=== PATIENT | female | born 1975 | race Caucasian/White ===

== ENCOUNTER 2016-08-09 12:46 | Inpatient (IN) | payer OTHER ==
[~2016-08-09] VITALS: Ht 165.1 cm; Wt 112.1 kg
[~2016-08-09 12:46] MED LIST: BENT20TA PO; CELE40TA PO; DEPO150I IM; TRAZ50TA4 PO
[2016-08-09] MEDS ORDERED: ZYPR10TA PO (13:08)
[2016-08-09] MEDS ORDERED: HYDR12.55 PO (13:08)
[2016-08-09] MEDS ORDERED: LOSA50TA20 PO (13:08)
[2016-08-09] MEDS ORDERED: LISI-542 PO (13:08)
[2016-08-09] MEDS ORDERED: CLON1TAB PO (13:08)
[2016-08-09] MEDS ORDERED: BUPR150T3 PO (13:08)
[2016-08-09] MEDS ORDERED: OMEP40CA2 PO (13:08)
[2016-08-09] MEDS ORDERED: AMBI10TA PO (13:08)
[2016-08-09] MEDS ORDERED: METF1000 PO (13:08)
[2016-08-09] MEDS ORDERED: TIZA4CAP3 PO (13:08)
[2016-08-09] MEDS ORDERED: PIOG45TA2 PO (13:08)
[2016-08-09] MEDS ORDERED: HYDRO50TAB PO (13:08)
[2016-08-09] MEDS ORDERED: LOPE2TAB5 PO (13:08)
[2016-08-09] MEDS ORDERED: SIMV10TA2 PO (13:08)
[2016-08-09] MEDS ORDERED: GLIP5TAB8 PO (13:08)
[2016-08-09] MEDS ORDERED: ZOFR20TA PO (13:08)
[2016-08-09 14:38] LABS: CALCIUM LEVEL 8.2 MG/DL (8.5-10.1); CREATININE FOR GFR 1.37 MG/DL (0.55-1.02); GLOMERULAR FILTRATION RATE 45.9 (>60); MAGNESIUM LEVEL 1.6 MG/DL (1.8-2.4); POTASSIUM SERUM 4.9 MEQ/L (3.5-5.1)
[2016-08-09] MEDS ORDERED: MAGNESIUM OXIDE 400 MG TAB (MAG-OX) PO ONE (15:00)
[2016-08-09] MEDS: glipiZIDE (GLUCOTROL) 5 MG TAB PO SCH (17:30)
[2016-08-09] MEDS ORDERED: BUPR300T34 PO (17:40)
[2016-08-09] MEDS ORDERED: PRAZ2CAP PO (17:40)
[2016-08-09] MEDS ORDERED: ALBU17IN INH (17:40)
[2016-08-09] MEDS ORDERED: GABA800T PO (17:40)
[2016-08-09] MEDS ORDERED: HYDR25TAB PO (17:43)
[2016-08-09 20:10] VITALS: BP 164/96
[2016-08-09] MEDS ORDERED: ALBUTEROL 90 MCG/ACT 8GM HFA INHALER INH PRN (23:00)
[2016-08-09] MEDS ORDERED: ONDANSETRON 4 MG TAB (S0181) PO PRN (23:00)
[2016-08-09] MEDS ORDERED: zolPIDEM TARTRATE 10MG TAB PO PRN (23:00)
[2016-08-09] MEDS ORDERED: LOPERAMIDE 2 MG CAP PO PRN (23:00)
[2016-08-09] MEDS ORDERED: MAALOX 30 ML SUSP *UDC PO PRN (23:00)
[2016-08-09] MEDS ORDERED: MOM 30ML SUSPENSION UDC PO PRN (23:00)
[2016-08-09] MEDS: GABAPENTIN 400 MG CAP PO SCH (23:34)
[2016-08-09] MEDS: OLANZapine 10 MG TAB PO SCH (23:34)
[2016-08-09] MEDS: SIMVASTATIN 10 MG TAB PO SCH (23:34)
[2016-08-09] MEDS: clonazePAM 1 MG TAB PO SCH (23:35)
[2016-08-09] MEDS: tiZANidine 4 MG TAB PO SCH (23:35)
[2016-08-09] MEDS: metFORMIN (GLUCOPHAGE) 1000 MG TABLET PO SCH (23:36)
[2016-08-09] MEDS: PRAZOSIN 1 MG CAP PO SCH (23:37)
[2016-08-10] MEDS: glipiZIDE (GLUCOTROL) 5 MG TAB PO SCH ×2 (06:35→17:04)
[2016-08-10 06:49] VITALS: BP 168/87
--- NOTE | 2016-08-10 08:55 | MHHPEPDOC ---
[facility] History & Physical History and Physical DATE OF ADMISSION: Aug 09, 2016 at 17:23 CHIEF COMPLAINT: "I don't have an answer for why I took too many Klonopin, sometimes I get sad, but really I think it's a tolerance problem." HISTORY OF THE PRESENT ILLNESS: Patient is a 40-year-old female, who was transferred from [facility]. Per [facility] notes patient was engaged in a fight with her boyfriend and may have overdosed on Klonopin as a suicide attempt. Patient was apparently transported to [facility] by boyfriend. Patient informed [facility] staff that she had taken 15 Klonopin tablets just prior to being evaluated in ER, per ER notes patient presented with drowsiness and obtundation (lethargic), symptoms are described as moderate. Patient informed ER staff that she had been depressed and upset, ER note also indicates possibly paranoid, had been experiencing anger with suicidal thoughts. Patient denied experiencing confusion, hallucinations or delusions to ER staff. Per [facility] ER report, patient has been seen in their emergency department 20 times in the past 2 years, usually for pain- related complaints. When patient arrived at [facility] she informed emergency room staff that she had had an argument with her boyfriend, took 15 Klonopin tablets, denied this was a suicide attempt and stated that she took the Klonopin in 5 pill increments over the course of the day. Patient denies history of prior psychiatric inpatient treatment, denies history of suicide attempt or self-injurious behavior. Patient reports experiencing an increase in the following symptoms within the past 2 weeks: Depression, anxiety, helplessness and hopelessness, impulse control challenges, relationship strain, hypersomnia, denies suicidal ideation, and denies suicidal gesture. Patient reports experiencing 5/10 anxiety, denies depression, denies suicidal and homicidal ideation, denies auditory and visual hallucinations, and denies urge to engage in self-injurious behavior. Patient endorses history of discomfort in social settings, panic attacks, is vague in terms of panic symptoms and last occurrence, endorses impulse control challenges, denies compulsive behavior, denies history of aggression or unsanctioned violence, and denies having access to weapons in the home. Patient denies experiencing dissociative symptoms, reports history of mood lability which is made level by [place], states she has a history of being diagnosed with bipolar disorder, is unable to provide description of symptoms. Patient denies appetite challenges, indicates she struggles with sleep maintenance, denies latency challenges, reports history of "nightmares with flashbacks," indicates she experiences nightmares approximately 3 times per month. Patient endorses symptoms of reexperiencing, avoidance, and hypervigilance which she attributes to witnessing her brother's suicide in 2015 and the loss of her mother and father in 2015. Patient states she has been receiving outpatient medication management through [facility] for the past year, is currently being prescribed Klonopin and Ambien, among other psychotropic medications, states medication regimen is effective, denies need for medication/dosing changes, and denies medication side effects. Patient states she does not participate in psychotherapy and is declining to sign release of information to permit communication between [facility] and outpatient medication prescriber. I stop review completed 08/10/16 PSYCHIATRIC REVIEW OF SYSTEMS: Affective: Dysthymic Anxiety: Endorses. Trauma: Endorses history of trauma. Psychosis: Denies. Personally: Engageable but evasive, provides conflicting information, reliability as operations specialists is questioned. 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 Patient states she has never participated in psychotherapy Suicidal/Self injurious: Denies Psychotropic Medication History: Patient unable to provide detailed information , states she may have taken Seroquel, Risperdal, lithium and Xanax at one point , is refusing to sign release permitting communication with current outpatient provider. ALLERGIES: Please see below. FAMILY PSYCHIATRIC HISTORY: Mother- bipolar Brother - bipolar SOCIAL HISTORY: Early Relations/development: Patient states she was born and raised in [place] by parents in intact relationship, indicates she moved to [place] from [place] 3 years ago. Patient states both parents are Sibling order: Patient is second oldest child, has 2 older brothers one of whom is , and one sister Paternal relationships: States boyfriend is supportive, indicates she is not close to her siblings, states she is close to her son who lives with her Education: Dropped out of high school in the 11th grade Occupational: Patient is unemployed, cannot remember the last time she worked, is not collecting disability, is unable to tell typewriter assembly and parts inspector about her work experience Legal: Initially denies, then indicates she was on probation 1 year for resisting arrest for reason she cannot remember Martial: Declines to discuss history of marriage, indicates she has a boyfriend of 3 years with whom she lives along with her 18-year-old son Economic: Unemployed, does not collect disability Supports: Limited Abuse/trauma: Denies history of abuse, trauma, or witnessing domestic violence in the home while growing up, indicates she was traumatized by family deaths and by witnessing brother's suicide SUBSTANCE ABUSE HISTORY: Patient informs typewriter assembly and parts inspector she has not consumed alcohol for the past 3 years, notes prior to that she drank "a few drinks on the weekends," indicates she smoked marijuana "years ago," indicates she would like to pursue a medical marijuana card. Patient states she has engaged in no other substance use or abuse. Per [facility] ER report patient smokes approximately half a pack of cigarettes per day. PAST MEDICAL/SURGICAL HISTORY: Per [facility] report, patient has history of hypertension, diabetes mellitus, obesity, COPD, chronic back pain, CHF, insomnia , hyperlipidemia Patient has surgical history of appendectomy, , colonoscopy, fracture repair to left ankle/leg Refer to [facility] report for baseline lab results 08/09/16 repeat labs on admission indicated elevated chloride, BUN, creatinine, glucose and low carbon dioxide, calcium, magnesium, GFR. [facility] 08/09/16 UDS negative, possible false negative for Klonopin [facility] 08/08/16 HCG negative [facility] 08/08/16 EKG normal sinus rhythm, cannot rule out anterior infarct, age undetermined abnormal ECG [facility] 08/08/2016 EKG normal sinus rhythm low voltage QRS cannot rule out anterior infarct, age undetermined abnormal ECG Nursing has been asked to ensure the patient is assessed by PA. VITAL SIGNS: 08/10/16 at 06:49 B/P 168/87, P 116, R 18, T 97.6. BP on recheck was 130/91. Nursing has been asked to ensure that PA evaluates blood pressure for treatment and monitoring purposes. MENTAL STATUS EXAMINATION: General appearance: Patient is a 40-year old female, who is cooperative but evasive, provides conflicting information, appears disheveled, dressed in hospital clothing, makes fair eye contact, and relates was steady gait, appears stated age. Speech: Slow, mildly slurred, delayed responses, generally coherent Thought processes: Delayed, generally linear and logical, goal-directed Thought content: Generally logical, no tangentiality noted, possibly paranoia, is refusing to allow typewriter assembly and parts inspector to talk with outpatient provider Abstract reasoning and computation: Requires further evaluation Description of associations: Appear generally intact Description of abnormal or psychotic thoughts: Denies suicidal or homicidal ideation, denies auditory or visual hallucinations, does not appear to be responding to internal stimuli, does not endorse bizarre or paranoid ideation, denies preoccupation with violence Judgment: Poor Insight: Poor Orientation: A and O 3 Recent and remote memory: Requires further assessment, patient is evasive, provides conflicting information which may be related to memory challenges Attention span and concentration: Limited Fund of knowledge: Requires further evaluation Mood: "Normal I guess, but with anxiety." Exhibits mild irritability during conversation pertaining to controlled medication tapers Affect: Blunted DIAGNOSES: Unspecified mood disorder, rule out substance-induced mood disorder, rule out polysubstance use disorder, rule out bipolar disorder, rule out MDD, rule out PTSD, rule out bereavement, rule out personality disorder ASSESSMENT: Patient is visible on unit, is cooperative with staff, and has presented with no behavior management challenges. Patient provides vague report pertaining to events which led to current hospitalization, indicates recent consumption of 15 Klonopin tablets was not a suicide attempt, nor was she attempting to abuse Klonopin. Patient verbalizes understanding that Ambien and Klonopin tapers will be initiated during inpatient treatment and declines to sign an ELIZABETH permitting communication with her outpatient prescriber. Patient states she receives medication management through [facility], notes current medication regimen is effective and does not want changes made to medications, states she is compliant with her medications, declines need for dosing adjustment, and denies medication side effects. Patient denies current suicidal or homicidal ideation and verbalizes awareness of how to access supportive services on the unit if needed. Will begin controlled medication tapers and will monitor patient's response to medications and for medication side effects. In the event current medication regimen is not effective, will courage patient to consider transitioning to medication which may more efficiently address presenting symptoms than the multiple medications she is currently being prescribed. Will evaluate patient's safety, resolution of suicidal ideation, and discharge readiness. Patient provides vague response when asked about current status of relationship with boyfriend, however, indicates when prepared for discharge she will return home where she lives with her boyfriend and her son. Patient states when prepared for discharge she would like to resume outpatient medication management through [facility], states she has never participated in outpatient psychotherapy, indicates she is agreeable to participating in therapy when discharged. public information coordinator will begin pursuing collateral information, and communication with outpatient provider will be initiated once patient has signed ELIZABETH. PROBLEM LIST: Suicide attempt/ideation Depression Anxiety Substance abuse Ineffective coping Poor impulse control Relationship strain Limited support INITIAL TREATMENT PLAN: 1. Patient was admitted on a 2. Complete history was obtained. 3. With patients permission, family will be contacted and database will be expanded. 4. Patients medication regimen will be reviewed and changed accordingly. 5. Patient will be provided with protected environment. 6. Patient will be treated with individual, group, and milieu therapies. 7. Patient will receive supportive psych-education. 8. Discharge planning will commence immediately. 9. Outpatient follow-up treatment will be strongly recommended. 10. The initial treatment plan will focus initially on: * Depression. * Risk for suicide. * Substance abuse. ESTIMATED LENGTH OF STAY: 5-7 DAYS. TIME SPENT COUNSELING AND COORDINATING INITIAL CARE: 50 minutes. Laboratory Data 24H Labs Laboratory Tests 2 08/09/16 13:59: Anion Gap 10, Glomerular Filtration Rate 45.9L, Blood Urea Nitrogen 27H, Creatinine 1.37H, Sodium Level 143, Potassium Level 4.9, Chloride Level 114H, Carbon Dioxide Level 19L, Calcium Level 8.2L, Magnesium Level 1.6L 08/09/16 23:33: Bedside Glucose (Misc Panel) 145H CBC/BMP Laboratory Tests 08/09/16 13:59 Calcium Level 8.2 L FSBS Laboratory Tests Test 08/09/16 23:33 Range/Units Bedside Glucose (Misc Panel) 145 70-105 MG/DL Medications Scheduled Bupropion HCl (Bupropion HCl Xl) 300 Mg Tab, 300 MG PO DAILY, (Reported) Citalopram Hydrobromide (Celexa) 40 Mg Tab, 40 MG PO DAILY, (Reported) Clonazepam (Clonazepam) 1 Mg Tab, 1 MG PO BID, (Reported) Gabapentin (Gabapentin) 800 Mg Tab, 800 MG PO TID, (Reported) Glipizide (Glipizide) 5 Mg Tab, 5 MG PO BID, (Reported) Hydrochlorothiazide (Hydrochlorothiazide) 25 Mg Tab, 25 MG PO DAILY, (Reported) Lisinopril (Lisinopril) 5 Mg Tab, 5 MG PO DAILY, (Reported) Losartan Potassium (Losartan Potassium) 50 Mg Tab, 50 MG PO DAILY, (Reported) Medroxyprogesterone Acetate (Depo-Provera Contraceptiv) 150 Mg/Ml Inj, 150 MG IM [id number], (Reported) Metformin Hydrochloride (Metformin HCl) 1,000 Mg Tab, 1,000 MG PO BID, (Reported ) Olanzapine (Zyprexa) 10 Mg Tab, 10 MG PO QHS, (Reported) Omeprazole (Omeprazole) 40 Mg Cap, 40 MG PO DAILY, (Reported) Pioglitazone Hydrochloride (Pioglitazone HCl) 45 Mg Tab, 45 MG PO QHS, (Reported ) Prazosin Hcl (Prazosin HCl) 2 Mg Cap, 2 MG PO QHS, (Reported) Simvastatin (Simvastatin) 10 Mg Tab, 10 MG PO QHS, (Reported) Tizanidine Hydrochloride (Tizanidine HCl) 4 Mg Cap, 4 MG PO TID, (Reported) Zolpidem Tartrate (Ambien) 10 Mg Tab, 10 MG PO QHS, (Reported) Scheduled PRN Albuterol Sulfate (Ventolin Hfa) 200 Puff/8 Gm Aers, 2 PUFF INH QID PRN for SHORTNESS OF BREATH, (Reported) Hydroxyzine HCl (Hydroxyzine HCl) 50 Mg Tab, 50 MG PO QID PRN for ANXIETY, ( Reported) Loperamide HCl (Loperamide HCl) 2 Mg Tab, 2 MG PO PRN PRN for DIARRHEA, ( Reported) Ondansetron HCl (Zofran) 4 Mg Tab, 4 MG PO PRN PRN for NAUSEA, (Reported) Allergies Coded Allergies: Cephalexin (Verified Allergy, Unknown, 03/02/15) Abigail Heath 23, 2017 08:55
[2016-08-10] MEDS: buPROPion **XL** TABLET 150MG (WELLBUTRIN XL) PO SCH (09:49)
[2016-08-10] MEDS: clonazePAM 1 MG TAB PO SCH ×2 (09:49→20:19)
[2016-08-10] MEDS: CitaloPRAM (CeleXA) 20 MG TAB PO SCH (09:51)
[2016-08-10] MEDS: LOSARTAN 50 MG TAB PO SCH (09:51)
[2016-08-10] MEDS: hydroCHLOROthiazide 25 MG TAB PO SCH (09:51)
[2016-08-10] MEDS: tiZANidine 4 MG TAB PO SCH ×3 (09:51→20:19)
[2016-08-10] MEDS: OMEPRAZOLE 20 MG CAP PO SCH (09:51)
[2016-08-10] MEDS: LISINOPRIL 5 MG TAB PO SCH (09:52)
[2016-08-10] MEDS: GABAPENTIN 400 MG CAP PO SCH ×3 (09:52→20:16)
[2016-08-10] MEDS: metFORMIN (GLUCOPHAGE) 1000 MG TABLET PO SCH ×2 (09:52→17:04)
[2016-08-10 10:02] VITALS: BP 130/91
[2016-08-10] MEDS ORDERED: zolPIDEM TARTRATE 5 MG TAB PO PRN (16:45)
[2016-08-10 18:00] VITALS: BP 156/86
[2016-08-10] MEDS: SIMVASTATIN 10 MG TAB PO SCH (20:16)
[2016-08-10] MEDS: OLANZapine 10 MG TAB PO SCH (20:16)
[2016-08-10] MEDS: PRAZOSIN 1 MG CAP PO SCH (20:17)
[2016-08-11 06:00] VITALS: BP 116/57
[2016-08-11] MEDS: glipiZIDE (GLUCOTROL) 5 MG TAB PO SCH ×2 (06:49→17:19)
[2016-08-11] MEDS: GABAPENTIN 400 MG CAP PO SCH ×3 (08:36→20:14)
[2016-08-11] MEDS: buPROPion **XL** TABLET 150MG (WELLBUTRIN XL) PO SCH (08:36)
[2016-08-11] MEDS: LOSARTAN 50 MG TAB PO SCH (08:37)
[2016-08-11] MEDS: clonazePAM 0.5 MG TAB PO SCH (08:37)
[2016-08-11] MEDS: metFORMIN (GLUCOPHAGE) 1000 MG TABLET PO SCH ×2 (08:37→17:19)
[2016-08-11] MEDS: tiZANidine 4 MG TAB PO SCH ×3 (08:37→20:17)
[2016-08-11] MEDS: LISINOPRIL 5 MG TAB PO SCH (08:37)
[2016-08-11] MEDS: OMEPRAZOLE 20 MG CAP PO SCH (08:37)
[2016-08-11] MEDS: hydroCHLOROthiazide 25 MG TAB PO SCH (08:37)
[2016-08-11] MEDS: CitaloPRAM (CeleXA) 20 MG TAB PO SCH (08:38)
[2016-08-11 18:00] VITALS: BP 133/94
[2016-08-11] MEDS: SIMVASTATIN 10 MG TAB PO SCH (20:17)
[2016-08-11] MEDS: PRAZOSIN 1 MG CAP PO SCH (20:17)
[2016-08-11] MEDS: clonazePAM 1 MG TAB PO SCH (20:17)
[2016-08-11] MEDS: OLANZapine 10 MG TAB PO SCH (20:17)
[2016-08-11] MEDS: ACETAMINOPHEN TAB 650MG DOSE (2X325MG) PO PRN (20:18)
[2016-08-12 06:00] VITALS: BP 97/60
[2016-08-12] MEDS: glipiZIDE (GLUCOTROL) 5 MG TAB PO SCH ×2 (06:53→16:52)
[2016-08-12] MEDS: OMEPRAZOLE 20 MG CAP PO SCH (08:32)
[2016-08-12] MEDS: GABAPENTIN 400 MG CAP PO SCH ×3 (08:32→20:18)
[2016-08-12] MEDS: CitaloPRAM (CeleXA) 20 MG TAB PO SCH (08:33)
[2016-08-12] MEDS: metFORMIN (GLUCOPHAGE) 1000 MG TABLET PO SCH ×2 (08:34→16:52)
[2016-08-12] MEDS: LISINOPRIL 5 MG TAB PO SCH (08:34)
[2016-08-12] MEDS: LOSARTAN 50 MG TAB PO SCH (08:34)
[2016-08-12] MEDS: tiZANidine 4 MG TAB PO SCH ×3 (08:34→20:18)
[2016-08-12] MEDS: clonazePAM 0.5 MG TAB PO SCH (08:35)
[2016-08-12] MEDS: hydroCHLOROthiazide 25 MG TAB PO SCH (08:35)
[2016-08-12] MEDS: buPROPion **XL** TABLET 150MG (WELLBUTRIN XL) PO SCH (08:35)
[2016-08-12 08:49] LABS: ALBUMIN 3.6 GM/DL (3.2-5.2); ALKALINE PHOSPHATASE 111 U/L (45-117); ALT/SGPT 66 U/L (12-78); ANION GAP 8 MEQ/L (8-16); AST/SGOT 24 U/L (15-37); BILIRUBIN,TOTAL 0.4 MG/DL (0.2-1.0); BLOOD UREA NITROGEN 21 MG/DL (7-18); CALCIUM LEVEL 8.8 MG/DL (8.5-10.1); CARBON DIOXIDE LEVEL 26 MEQ/L (21-32); CHLORIDE LEVEL 102 MEQ/L (98-107); CREATININE FOR GFR 1.01 MG/DL (0.55-1.02); GLOMERULAR FILTRATION RATE > 60.0 (>60); GLUCOSE, FASTING 220 MG/DL (70-105); MAGNESIUM LEVEL 1.8 MG/DL (1.8-2.4); POTASSIUM SERUM 4.4 MEQ/L (3.5-5.1); SODIUM LEVEL 136 MEQ/L (136-145); TOTAL PROTEIN 7.6 GM/DL (6.4-8.2)
--- NOTE | 2016-08-12 10:59 | IPN ---
DATE: 08/11/2016 I evaluated this 40-year-old female with history of intentional overdose with Klonopin who was admitted to the inpatient mental health unit on 08/09/2016. According to history, the patient is a 40-year-old female who was transferred from [facility] after [facility] notes patient was engaged in a fight with her boyfriend and may have overdosed on Klonopin. However, the patient denies that she took Klonopin with the intention of killing herself. As per notes, it was her boyfriend who is the one who reported to [facility] that patient had overdosed on Klonopin. She states that she took more or less 7 tablets of 1 mg and she says that she did not do it with the intention of overdose, but because she was very stressed out and she could not relax and for that reason she kept taking Klonopin. She reports multiple losses including her baby brother whom she says had cardiac problems and that she saw him dying in front of her eyes, she remembers quite vividly that he had blood coming out of his mouth and she tried to help him not to choke on it, but she could not do much for him. She reports that she feels very guilty about not being able to help him more and she blames herself for his , she also reports that her mother killed herself four days before last Nando and that her father as a consequence of a massive seizure. She reports that she has taken Wellbutrin and Celexa for a long period of time and that she has felt that she was stable on those medications. Currently, she denies suicidal ideation and denies auditory and visual hallucinations, but she is trying to minimize her symptoms because she is looking forward for being discharged. Currently, the patient is taking Wellbutrin 300 mg by mouth daily, Celexa 40 mg by mouth daily, Klonopin 1 mg by mouth at bedtime and 0.5 mg by mouth every morning, gabapentin 800 mg by mouth three times a day, olanzapine 10 mg by mouth at bedtime, prazosin 2 mg by mouth at bedtime and zolpidem 5 mg by mouth at bedtime as needed for insomnia. The patient has medication seeking behavior. She complained of pain and she reported that gabapentin was not being effective in controlling her neuropathic pain and required a stronger medication, but this typewriter mechanic explained to her that no further changes could be made and no increase in medications could be performed due to the fact that she was already on way too many medications and could not prescribe her Lyrica because it is very similar to gabapentin and did not consider it necessary. The patient will be followed up and reassessed tomorrow, 08/12/2016.
[2016-08-12] MEDS: ACETAMINOPHEN TAB 650MG DOSE (2X325MG) PO PRN (13:30)
[2016-08-12 18:00] VITALS: BP 141/75
--- NOTE | 2016-08-12 18:38 | MHIPNPDOC ---
[facility] Progress Note Progress Note DATE OF SERVICE: 08/12/16 INTERVAL HISTORY: Medication Side effects: reports no side effects from her psychiatric medications at this time Behavior/events: has been generally friendly with no acute outbursts Group Attendance: has attended groups Psychiatric Symptoms: reports that she is feeling better other than her chronic back pain, she was advised acupuncture would be ideal for her pain. She describes that she's feeling much less depressed and anxious being in an inpatient setting VITAL SIGNS: See below. NEW TEST RESULTS: See below CURRENT MEDICATIONS: See below. MENTAL STATUS EXAMINATION: General: Well dressed with good hygiene Speech: Spontaneous and fluid Thought processes: Linear and logical Thought content: future oriented, laughing about her children Abstract reasoning, and computation: Intact Description of associations: Intact Description of abnormal or psychotic thoughts:Denies any suicidal or homicidal ideation. Denies any auditory or visual hallucinations. Does not appear to be responding to internal stimuli. Does not appear to be endorsing any bizarre or paranoid ideation. Judgment: fair Insight: limited Orientation: Alert and orientated 3 Recent and remote memory: Intact Attention span and concentration: Intact Fund of knowledge: Adequate Mood: "okay" Affect: Euthymic with a full range DIAGNOSES: 1. Unspecified depressive disorder. 2. Mixed personality trait. 3. Poly substance use disorder, severe. ASSESSMENT: improving MANAGEMENT PLAN: Medications: continue psychiatric medications as below with no changes, discourage providers from using Lyrica due to the addictive nature Psychotherapy: encourage group therapy Social: no plans to discharge at this time Misc: encouraged use of Tylenol for back pain Disposition: The patient will need of further inpatient stay to address severe depression. TIME SPENT: 15 minutes. Vital Signs Vital Signs Date Time Temp Pulse Resp B/P (MAP) Pulse Ox O2 Delivery O2 Flow Rate FiO2 08/12/16 18:00 98.2 78 16 141/75 (97) 08/10/16 17:05 Room Air 08/09/16 20:10 98 Laboratory Data 24H Labs Laboratory Tests 2 08/12/16 06:07: Bedside Glucose (Misc Panel) 220H 08/12/16 08:02: Anion Gap 8, Glomerular Filtration Rate > 60.0, Blood Urea Nitrogen 21H, Creatinine 1.01, Sodium Level 136, Potassium Level 4.4, Chloride Level 102, Carbon Dioxide Level 26, Calcium Level 8.8, Aspartate Amino Transf (AST/SGOT) 24 , Alanine Aminotransferase (ALT/SGPT) 66, Alkaline Phosphatase 111, Total Bilirubin 0.4, Total Protein 7.6, Albumin 3.6, Magnesium Level 1.8, Albumin/ Globulin Ratio 0.90L 08/12/16 16:51: Bedside Glucose ([facility]) 172H CBC/BMP Laboratory Tests 08/12/16 08:02 Calcium Level 8.8, Aspartate Amino Transf (AST/SGOT) 24, Alanine Aminotransferase (ALT/SGPT) 66, Alkaline Phosphatase 111, Total Bilirubin 0.4, Total Protein 7.6, Albumin 3.6 Current Medications Current Medications Acetaminophen (Tylenol Tab) 650 mg Q6HP PRN PO HEADACHE or DISCOMFORT Last administered on 08/12/16 13:30; Start 08/09/16 at 23:00; Stop 09/08/16 at 22:59 Al Hydrox/Mg Hydrox/Simethicone (Mylanta) 30 ml Q4HP PRN PO HEARTBURN/ INDIGESTION; Start 08/09/16 at 23:00; Stop 09/08/16 at 22:59 Albuterol Sulfate (Proventil, Ventolin Hfa) 2 puff QIDP PRN INH SOB/WHEEZING; Start 08/09/16 at 23:00; Stop 09/08/16 at 22:59 Bupropion HCl (Wellbutrin Xl) 300 mg DAILY PO Last administered on 08/12/16 08 :35; Start 08/10/16 at 09:00; Stop 09/09/16 at 08:59 Citalopram Hydrobromide (CeleXA) 40 mg DAILY PO Last administered on 08/12/16 08:33; Start 08/10/16 at 09:00; Stop 09/09/16 at 08:59 Clonazepam (KlonoPIN) 0.5 mg QAM PO Last administered on 08/12/16 08:35; Start 08/11/16 at 09:00; Stop 08/18/16 at 08:59 Clonazepam (KlonoPIN) 1 mg BID PO Last administered on 08/10/16 09:49; Start 08/09/16 at 21:00; Stop 08/10/16 at 16:37; Status DC Clonazepam (KlonoPIN) 1 mg QHS PO Last administered on 08/11/16 20:17; Start 08/10/16 at 21:00; Stop 08/16/16 at 20:59 Gabapentin (Neurontin) 800 mg TID PO Last administered on 08/12/16 15:15; Start 08/09/16 at 21:00; Stop 09/08/16 at 20:59 Glipizide (Glucotrol) 5 mg BID@0730,1730 PO Last administered on 08/12/16 16: 52; Start 08/09/16 at 17:30; Stop 09/08/16 at 17:29 Home Med (Med Rec Complete!) ASDIRECTED XX ; Start 08/09/16 at 17:45; Stop at 17:45; Status DC Hydrochlorothiazide (Hydrodiuril) 25 mg DAILY PO Last administered on 08:35; Start 08/10/16 at 09:00; Stop 09/09/16 at 08:59 Hydroxyzine HCl (Atarax) 50 mg Q6HP PRN PO ANXIETY; Start 08/09/16 at 23:00; Stop 09/08/16 at 22:59 Lisinopril (Prinivil) 5 mg DAILY PO Last administered on 08/12/16 08:34; Start 08/10/16 at 09:00; Stop 09/09/16 at 08:59 Loperamide HCl (Imodium) 2 mg ASDIRECTED PRN PO DIARRHEA; Start 08/09/16 at 23: 00; Stop 09/08/16 at 22:59 Losartan Potassium (Cozaar) 50 mg DAILY PO Last administered on 08/12/16 08:34 ; Start 08/10/16 at 09:00; Stop 09/09/16 at 08:59 Magnesium Hydroxide (Milk Of Magnesia) 30 ml DAILYPRN PRN PO CONSTIPATION; Start 08/09/16 at 23:00; Stop 09/08/16 at 22:59 Metformin HCl (Glucophage) 1,000 mg BID@08,18 PO Last administered on 16:52; Start 08/09/16 at 18:00; Stop 09/08/16 at 17:59 Miscellaneous (Unresolved Patient Own Med Order) SEE LABEL COMMENTS UNRESOLVED XX ; Start 08/10/16 at 00:01; Stop 09/09/16 at 00:00 Olanzapine (ZyPREXA) 10 mg QHS PO Last administered on 08/11/16 20:17; Start 08/09/16 at 21:00; Stop 09/08/16 at 20:59 Omeprazole (PriLOSEC) 40 mg DAILY PO Last administered on 08/12/16 08:32; Start 08/10/16 at 09:00; Stop 09/09/16 at 08:59 Ondansetron HCl (Zofran) 4 mg Q4HP PRN PO NAUSEA OR VOMITING; Start 08/09/16 at 23:00; Stop 09/08/16 at 22:59 Patient Own Medication (Patient'S Own Med) 45mg QHS PO Last administered on 20:17; Start 08/10/16 at 21:00; Stop 09/09/16 at 20:59 Prazosin HCl (Minipress) 2 mg QHS PO Last administered on 08/11/16 20:17; Start 08/09/16 at 21:00; Stop 09/08/16 at 20:59 Simvastatin (Zocor) 10 mg QHS PO Last administered on 08/11/16 20:17; Start at 21:00; Stop 09/08/16 at 20:59 Tizanidine HCl (Zanaflex) 4 mg TID PO Last administered on 08/12/16 15:15; Start 08/09/16 at 21:00; Stop 09/08/16 at 20:59 Zolpidem Tartrate (Ambien) 5 mg QHSP PRN PO INSOMNIA; Start 08/10/16 at 16:45; Stop 08/17/16 at 16:44 Zolpidem Tartrate (Ambien) 10 mg QHSP PRN PO INSOMNIA Last administered on 08/09 23:35; Start 08/09/16 at 23:00; Stop 08/10/16 at 16:37; Status DC Allergies Coded Allergies: Cephalexin (Verified Allergy, Unknown, 03/02/15) GME ATTESTATION My preceptor for this patient encounter was physically present in the building during the encounter and was fully available. As needed, all aspects of the patient interview, examination, medical decision making process, and medical care plan development were reviewed and approved by the preceptor. Preceptor is aware and concurs with the plan as stated in the body of this note and will attest to such by his/her cosignature. JIMBO DESAI DO Aug 12, 2016 18:38
[2016-08-12] MEDS: SIMVASTATIN 10 MG TAB PO SCH (20:18)
[2016-08-12] MEDS: OLANZapine 10 MG TAB PO SCH (20:18)
[2016-08-12] MEDS: clonazePAM 1 MG TAB PO SCH (20:18)
[2016-08-12] MEDS: PRAZOSIN 1 MG CAP PO SCH (20:20)
--- NOTE | 2016-08-13 00:46 | ECGEPIP ---
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
[2016-08-13 06:20] VITALS: BP 104/55
[2016-08-13] MEDS: glipiZIDE (GLUCOTROL) 5 MG TAB PO SCH ×2 (06:32→17:06)
[2016-08-13] MEDS: CitaloPRAM (CeleXA) 20 MG TAB PO SCH (08:37)
[2016-08-13] MEDS: OMEPRAZOLE 20 MG CAP PO SCH (08:37)
[2016-08-13] MEDS: tiZANidine 4 MG TAB PO SCH ×3 (08:37→20:27)
[2016-08-13] MEDS: clonazePAM 0.5 MG TAB PO SCH ×2 (08:37→20:30)
[2016-08-13] MEDS: buPROPion **XL** TABLET 150MG (WELLBUTRIN XL) PO SCH (08:37)
[2016-08-13] MEDS: LISINOPRIL 5 MG TAB PO SCH (08:37)
[2016-08-13] MEDS: LOSARTAN 50 MG TAB PO SCH (08:37)
[2016-08-13] MEDS: metFORMIN (GLUCOPHAGE) 1000 MG TABLET PO SCH ×2 (08:37→17:06)
[2016-08-13] MEDS: GABAPENTIN 400 MG CAP PO SCH ×3 (08:37→20:30)
[2016-08-13] MEDS: hydroCHLOROthiazide 25 MG TAB PO SCH (08:38)
--- NOTE | 2016-08-13 09:22 | MHIPNPDOC ---
[facility] Progress Note Progress Note DATE OF SERVICE: 08/13/16 HISTORY OF THE PRESENT ILLNESS: Patient is a 40-year-old female, who was transferred from [facility] after overdosing on Klonopin after argument with boyfriend. At time of admission patient admitted to taking 15 Klonopin tablets, denied this was a suicide attempt and stated she took the Klonopin in 5 pill increments over the course of the day. Patient denies history of prior psychiatric inpatient treatment, further denies history of suicide attempt or self-injurious behavior, however, indicates she has lengthy outpatient psychiatric history dating back to childhood, is unable to provide clear details on treatment or medication history. Cdl Driver met with patient today to assess treatment progress on inpatient unit. Patient indicates she is feeling "a lot better," rates current anxiety level 5/ 10, depression 0/10, denies suicidal or homicidal ideation, denies auditory or visual hallucinations, and denies urge to engage in self-injurious behavior. Patient has not used hydroxyzine or Ambien over the weekend, per EMR has been sleeping through night, denies nightmares symptoms. Patient indicates she has been awakening, was reminded she has Ambien available to her as part of taper and hydroxyzine also available to her. Patient remains in agreement with continuation of Klonopin taper in preparation for discharge, denies symptoms of craving or withdrawal. Patient appears brighter, speech is clear with no slurring noted, more spontaneous, no indication of paranoia present at time of interaction. Patient reports improvement in energy level, improvement concentration and focus, and denies challenges with appetite. Patient reiterates today she has been receiving outpatient medication management through [facility] for the past year, has been prescribed Klonopin and Ambien, among other psychotropic medications, states medication regimen is effective, denies need for medication/dosing changes, and denies medication side effects. Patient also reiterates she does not participate in psychotherapy and has been declining to sign release of information to permit communication between [facility] and outpatient medication prescriber, is today agreeable to sign ROIs. Patient indicates her boyfriend has been visiting her on the unit and states visitation has gone well. Addendum: When mortgage loan underwriter attempted to contact patient's outpatient provider, Michael Mckenzie, message left requesting return call. Cdl Driver also left message for [place] nurse requesting medication and treatment history. I stop review completed 08/10/16 Addendum: Cdl Driver was informed by cash applications coordinator the patient presented with a tremor when signing ROIs, mortgage loan underwriter followed up with patient and patient was observed to be sitting in lounge, eating, engaging in activities requiring use of her hands with peers, no tremor was noted and patient presented with no signs of acute distress. VITALS: See below NEW TEST RESULTS: 08/12/16 labs indicated elevated BUN and glucose and low AGR MEDICAL/SURGICAL HISTORY: Per [facility] report, patient has history of hypertension, diabetes mellitus, obesity, COPD, chronic back pain, CHF, insomnia , hyperlipidemia Patient has surgical history of appendectomy, , colonoscopy, fracture repair to left ankle/leg, removal of ovarian cysts Refer to [facility] report for baseline lab results 08/09/16 repeat labs on admission indicated elevated chloride, BUN, creatinine, glucose and low carbon dioxide, calcium, magnesium, GFR. [facility] 08/09/16 UDS negative, possible false negative for Klonopin [facility] 08/08/16 HCG negative - patient indicates she receives Depo-Provera IM q 12 weeks, denies risk for , verbalizes understanding of the risks associated with psychotropic medications to unborn child should she become while taking psychotropic medication. [facility] 08/08/16 EKG normal sinus rhythm, cannot rule out anterior infarct, age undetermined abnormal ECG [facility] 08/08/2016 EKG normal sinus rhythm low voltage QRS cannot rule out anterior infarct, age undetermined abnormal ECG 08/10/16 EKG sinus tachycardia low QRS voltage in precordial leads nonspecific T- wave abnormality abnormal rhythm ECG no prior tracing and system. Clinical consultation sought on 3 recent EKGs, recommendation made for follow-up with outpatient provider CURRENT MEDICATIONS: See below MENTAL STATUS EXAMINATION: General appearance: Patient is a 40-year old female, who is cooperative but evasive, provides conflicting information, appears less disheveled today, dressed in hospital clothing, makes improved eye contact, and relates was steady gait, appears stated age. Speech: Of normal rate, rhythm, volume, spontaneous, coherent Thought processes: No delay today, linear linear and logical, goal-directed Thought content: Logical, no tangentiality noted, no paranoia noted Abstract reasoning and computation: Appears intact Description of associations: Appear ntact Description of abnormal or psychotic thoughts: Denies suicidal or homicidal ideation, denies auditory or visual hallucinations, does not appear to be responding to internal stimuli, does not endorse bizarre or paranoid ideation, denies preoccupation with violence Judgment: Poor Insight: Poor Orientation: A and O 3 Recent and remote memory: Appear intact, patient remains evasive and provides conflicting information but this does not appear to be associated with memory challenges Attention span and concentration: Improved Fund of knowledge: Appears adequate Mood: "A lot better today." Patient denies depression, reports moderate anxiety , no mood lability noted Affect: Mild constriction, brightens at times, congruent with mood DIAGNOSES: Unspecified mood disorder, rule out substance-induced mood disorder, rule out polysubstance use disorder, rule out bipolar disorder, rule out anxiety disorder, rule out MDD, rule out PTSD, rule out bereavement, rule out personality disorder ASSESSMENT: Patient is visible on unit, is cooperative with staff, has been attending unit activities and socializing with peers, and has presented with no behavior management challenges. Patient continues to provide vague report pertaining to events which led to current hospitalization, today indicates she does not remember events which preceded hospitalization and informs mortgage loan underwriter she took 7 Klonopin tablets, not 15, reiterates today was not a suicide attempt. Patient verbalizes understanding that Ambien and Klonopin tapers will be continued and indicates she is in agreement in preparation for discharge, is today agreeing to sign ROIs to permit communication with outpatient providers. Patient informs mortgage loan underwriter, other than Ambien and Klonopin, she wants to stay on medication regimen which was being prescribed by [facility] outpatient provider, indicates regimen is effective, denies need for dosing adjustment, and denies medication side effects. Will continue to encourage patient to consider transitioning to medication which may more efficiently address presenting symptoms than the multiple medications she is currently being prescribed. Will evaluate patient's safety, resolution of suicidal ideation, and discharge readiness. Patient today indicates she and boyfriend have resolved their differences and plan is for her to return home with him when she is prepared for discharge. Patient reiterates when she discharges she would like to resume outpatient medication management through [facility], states she has never participated in outpatient psychotherapy , indicates she is agreeable to participating in therapy when discharged, also notes she would like to receive case management services through [facility]. kettle coordinator continues to pursue collateral information. MANAGEMENT PLAN: Reduce Klonopin to 0.5 mg po BID with plan to taper and discontinue as tolerated by patient. Continue Wellbutrin XL 300 mg po q day, Celexa 40 mg po q day, Zyprexa 10 mg po q hs, Minipress 2 mg po q hs, Atarax 50 mg po q 6 hours PRN anxiety, and ambien 5 mg po hs PRN insomnia with plan to discontinue. Maintain safety precautions Patient to attend groups and participate in unit programming to develop coping strategies Engage patient in discharge planning process and arrange meeting with support system to ensure safe discharge planning when appropriate Patient to follow up with [facility] upon discharge TIME SPENT: 35 minutes Vital Signs Vital Signs Date Time Temp Pulse Resp B/P (MAP) Pulse Ox O2 Delivery O2 Flow Rate FiO2 08/13/16 08:37 132/77 08/13/16 06:20 98.5 99 18 Room Air 08/09/16 20:10 98 Laboratory Data 24H Labs Laboratory Tests 2 08/12/16 16:51: Bedside Glucose (Misc Panel) 172H 08/13/16 06:22: Bedside Glucose (Misc Panel) 167H Current Medications Current Medications Acetaminophen (Tylenol Tab) 650 mg Q6HP PRN PO HEADACHE or DISCOMFORT Last administered on 08/12/16 13:30; Start 08/09/16 at 23:00; Stop 09/08/16 at 22:59 Al Hydrox/Mg Hydrox/Simethicone (Mylanta) 30 ml Q4HP PRN PO HEARTBURN/ INDIGESTION; Start 08/09/16 at 23:00; Stop 09/08/16 at 22:59 Albuterol Sulfate (Proventil, Ventolin Hfa) 2 puff QIDP PRN INH SOB/WHEEZING; Start 08/09/16 at 23:00; Stop 09/08/16 at 22:59 Bupropion HCl (Wellbutrin Xl) 300 mg DAILY PO Last administered on 08/13/16 08 :37; Start 08/10/16 at 09:00; Stop 09/09/16 at 08:59 Citalopram Hydrobromide (CeleXA) 40 mg DAILY PO Last administered on 08/13/16 08:37; Start 08/10/16 at 09:00; Stop 09/09/16 at 08:59 Clonazepam (KlonoPIN) 0.5 mg QAM PO Last administered on 08/13/16 08:37; Start 08/11/16 at 09:00; Stop 08/18/16 at 08:59 Clonazepam (KlonoPIN) 1 mg BID PO Last administered on 08/10/16 09:49; Start 08/09/16 at 21:00; Stop 08/10/16 at 16:37; Status DC Clonazepam (KlonoPIN) 1 mg QHS PO Last administered on 08/12/16 20:18; Start 08/10/16 at 21:00; Stop 08/16/16 at 20:59 Gabapentin (Neurontin) 800 mg TID PO Last administered on 08/13/16 08:37; Start 08/09/16 at 21:00; Stop 09/08/16 at 20:59 Glipizide (Glucotrol) 5 mg BID@0730,1730 PO Last administered on 08/13/16 06: 32; Start 08/09/16 at 17:30; Stop 09/08/16 at 17:29 Home Med (Med Rec Complete!) ASDIRECTED XX ; Start 08/09/16 at 17:45; Stop at 17:45; Status DC Hydrochlorothiazide (Hydrodiuril) 25 mg DAILY PO Last administered on 08:38; Start 08/10/16 at 09:00; Stop 09/09/16 at 08:59 Hydroxyzine HCl (Atarax) 50 mg Q6HP PRN PO ANXIETY; Start 08/09/16 at 23:00; Stop 09/08/16 at 22:59 Lisinopril (Prinivil) 5 mg DAILY PO Last administered on 08/13/16 08:37; Start 08/10/16 at 09:00; Stop 09/09/16 at 08:59 Loperamide HCl (Imodium) 2 mg ASDIRECTED PRN PO DIARRHEA; Start 08/09/16 at 23: 00; Stop 09/08/16 at 22:59 Losartan Potassium (Cozaar) 50 mg DAILY PO Last administered on 08/13/16 08:37 ; Start 08/10/16 at 09:00; Stop 09/09/16 at 08:59 Magnesium Hydroxide (Milk Of Magnesia) 30 ml DAILYPRN PRN PO CONSTIPATION; Start 08/09/16 at 23:00; Stop 09/08/16 at 22:59 Metformin HCl (Glucophage) 1,000 mg BID@08,18 PO Last administered on 08:37; Start 08/09/16 at 18:00; Stop 09/08/16 at 17:59 Miscellaneous (Unresolved Patient Own Med Order) SEE LABEL COMMENTS UNRESOLVED XX ; Start 08/10/16 at 00:01; Stop 08/12/16 at 20:22; Status DC Olanzapine (ZyPREXA) 10 mg QHS PO Last administered on 08/12/16 20:18; Start 08/09/16 at 21:00; Stop 09/08/16 at 20:59 Omeprazole (PriLOSEC) 40 mg DAILY PO Last administered on 08/13/16 08:37; Start 08/10/16 at 09:00; Stop 09/09/16 at 08:59 Ondansetron HCl (Zofran) 4 mg Q4HP PRN PO NAUSEA OR VOMITING; Start 08/09/16 at 23:00; Stop 09/08/16 at 22:59 Patient Own Medication (Patient'S Own Med) 45mg QHS PO Last administered on 20:17; Start 08/10/16 at 21:00; Stop 09/09/16 at 20:59 Prazosin HCl (Minipress) 2 mg QHS PO Last administered on 08/12/16 20:20; Start 08/09/16 at 21:00; Stop 09/08/16 at 20:59 Simvastatin (Zocor) 10 mg QHS PO Last administered on 08/12/16 20:18; Start at 21:00; Stop 09/08/16 at 20:59 Tizanidine HCl (Zanaflex) 4 mg TID PO Last administered on 08/13/16 08:37; Start 08/09/16 at 21:00; Stop 09/08/16 at 20:59 Zolpidem Tartrate (Ambien) 5 mg QHSP PRN PO INSOMNIA; Start 08/10/16 at 16:45; Stop 08/17/16 at 16:44 Zolpidem Tartrate (Ambien) 10 mg QHSP PRN PO INSOMNIA Last administered on 08/09t 23:35; Start 08/09/16 at 23:00; Stop 08/10/16 at 16:37; Status DC Allergies Coded Allergies: Cephalexin (Verified Allergy, Unknown, 03/02/15) Abigail Heath Aug 13, 2016 09:22
[2016-08-13] MEDS: hydrOXYzine 50 MG TAB PO PRN (12:03)
--- NOTE | 2016-08-13 12:11 | HPE ---
DATE OF ADMISSION: 08/09/2016 HISTORY OF PRESENT ILLNESS: Please refer to psychiatric history and evaluation for further details on this admission. This examination and history is intended for medical issues, which may need treatment, followup or consult on this 40-year-old female who was transferred from [facility] after being medically stabilized having overdosed on Klonopin. PRIMARY CARE PROVIDER: Dr. Lewis. ALLERGIES: CEPHALEXIN. SOCIAL HISTORY: She is , but for 20 years. Ethyl alcohol (EtOH) none. Smokes, she states she quit 5 weeks ago. Recreational drug use: Denies any. PAST MEDICAL HISTORY: 1. Hypertension. 2. Hypercholesterolemia. 3. Non-insulin dependent diabetes type 2. 4. Chronic obstructive pulmonary disease (COPD). PAST SURGICAL HISTORY: 1. Repair of fractured left ankle. 2. Two (C) sections. 3. Appendectomy. 4. Removal of ovarian cysts. HOME MEDICATIONS: - Ventolin two puffs by mouth four times a day as needed for shortness of breath or wheeze - bupropion 300 mg by mouth daily - Effexor 40 mg by mouth daily - clonazepam 1 mg by mouth twice a day - gabapentin 800 mg by mouth three times a day - glipizide 5 mg by mouth twice a day - hydrochlorothiazide 25 mg by mouth daily - hydroxyzine 50 mg by mouth four times a day as needed - lisinopril 5 mg by mouth daily - loperamide 2 mg by mouth as needed for constipation - losartan 50 mg by mouth daily - Depo-Provera 150 mg intramuscularly (IM) every 12 weeks - metformin 1000 mg by mouth twice a day with meals - Zyprexa 10 mg by mouth nightly - 40 mg by mouth daily - ondansetron 4 mg sublingual - pioglitazone 45 mg by mouth nightly - Pitocin 2 mg by mouth nightly - simvastatin 10 mg by mouth nightly REVIEW OF SYSTEMS: 10-system review was done, was unremarkable other than chronic illnesses. No acute problems. PHYSICAL EXAMINATION: 40-year-old cooperative female. Height 65 inches, weight 115.6 kg, body mass index (BMI) 42.4. Blood pressure 116/57, pulse 100, respirations 16, temperature 96.6. Patient is alert and oriented times three. Pupils equal and react to light. Extraocular muscles intact. Cornea and sclerae clear. Conjunctivae were normal. No facial asymmetry. Pharynx, tongue and gums pink and moist. Tongue is midline. Neck is supple without lymphadenopathy. No thyromegaly, no goiter. Carotids 2+ without bruit. Chest clear to auscultation without wheeze or retraction. Heart is regular. Abdomen is benign. Bowel sounds positive. Genitourinary/rectal: Not done. Extremities: Show equal strength, full range of motion. No cyanosis, clubbing or edema. Peripheral pulses equal and palpable bilaterally. Skin is warm and dry. IMPRESSION/PLAN: 1. Psychiatric plan per psychiatry. 2. [id number] diabetes mellitus (NIDDM) type 2. Continue diet and medications. Daily fingersticks, fasting blood sugar twice a day. Consistent carbohydrate diet. 3. Chronic obstructive pulmonary disease (COPD). Clinically stable.
[2016-08-13 18:28] VITALS: BP 104/58
[2016-08-13] MEDS: SIMVASTATIN 10 MG TAB PO SCH (20:27)
[2016-08-13] MEDS: PRAZOSIN 1 MG CAP PO SCH (20:29)
[2016-08-13] MEDS: OLANZapine 10 MG TAB PO SCH (20:29)
[2016-08-13] MEDS: ACETAMINOPHEN TAB 650MG DOSE (2X325MG) PO PRN (20:30)
[2016-08-14] MEDS: glipiZIDE (GLUCOTROL) 5 MG TAB PO SCH ×2 (06:34→17:08)
[2016-08-14 06:37] VITALS: BP 126/61
[2016-08-14] MEDS: tiZANidine 4 MG TAB PO SCH ×3 (08:47→20:04)
[2016-08-14] MEDS: clonazePAM 0.5 MG TAB PO SCH ×2 (08:47→20:01)
[2016-08-14] MEDS: GABAPENTIN 400 MG CAP PO SCH ×3 (08:47→20:00)
[2016-08-14] MEDS: metFORMIN (GLUCOPHAGE) 1000 MG TABLET PO SCH ×2 (08:47→17:08)
[2016-08-14] MEDS: hydroCHLOROthiazide 25 MG TAB PO SCH (08:47)
[2016-08-14] MEDS: LISINOPRIL 5 MG TAB PO SCH (08:47)
[2016-08-14] MEDS: CitaloPRAM (CeleXA) 20 MG TAB PO SCH (08:47)
[2016-08-14] MEDS: OMEPRAZOLE 20 MG CAP PO SCH (08:47)
[2016-08-14] MEDS: LOSARTAN 50 MG TAB PO SCH (08:48)
[2016-08-14] MEDS: buPROPion **XL** TABLET 150MG (WELLBUTRIN XL) PO SCH (08:48)
[2016-08-14] MEDS: hydrOXYzine 50 MG TAB PO PRN ×2 (10:56→20:06)
--- NOTE | 2016-08-14 16:43 | MHIPNPDOC ---
[facility] Progress Note Progress Note DATE OF SERVICE: 08/14/16 HISTORY OF THE PRESENT ILLNESS: Patient is a 40-year-old female, who was transferred from [facility] after overdosing on Klonopin after argument with boyfriend. At time of admission patient admitted to taking 15 Klonopin tablets, denied this was a suicide attempt and stated she took the Klonopin in 5 pill increments over the course of the day. Patient denies history of prior psychiatric inpatient treatment, further denies history of suicide attempt or self-injurious behavior, however, indicates she has lengthy outpatient psychiatric history dating back to childhood, is unable to provide clear details on treatment or medication history. Screen Machine Operator met with patient today to assess treatment progress on inpatient unit. Patient indicates she continues to feel better, however, indicates she was under the impression she would be discharged tomorrow, was reminded that discharge will be or Saturday after completion of benzodiazepine taper. Patient reported increasing anxiety due to being informed she will not be discharged tomorrow, rates current anxiety level 6/10, depression 2/10, denies suicidal or homicidal ideation, denies auditory or visual hallucinations, and denies urge to engage in self-injurious behavior. Patient requested hydroxyzine X 1 today to address symptoms of anxiety after being told she would not be discharged tomorrow with good effect reported, utilized Ambien last night for sleep, informs casualty underwriter today she is prepared for Ambien to be discontinued and is in agreement with continuing with Klonopin taper. Patient denies challenges with sleep latency, notes she wakes up 1-2 times per night but is able to resume sleep, makes request for new sleep aid, denies nightmares symptoms, denies symptoms of craving or withdrawal. Patient continues to appear brighter, speech is clear with no slurring noted, more spontaneous, no indication of paranoia. Patient reports improvement in energy level, improvement concentration and focus, and denies challenges with appetite. Patient is not receptive to other medication changes to notable medication regimen, states medication regimen is effective, denies need for medication/dosing changes, and denies medication side effects, no indication of tremor noted or reported. Patient also reiterates she does not participate in outpatient psychotherapy, is today willing to permit communication between [facility] and outpatient medication prescriber. Patient indicates her boyfriend has been visiting her on the unit and states visitation continues to go well. Of note: Patient indicates in the past she has trialed Seroquel, Risperdal, lithium, and latuda, indicates aforementioned medications were ineffective/ caused side effects. Patient states she is also taken Xanax, provides evasive and conflicting response when asked why medication was discontinued. Addendum: Screen Machine Operator spoke with outpatient [facility] prescriber, Michael Mckenzie, to inform of patient's recent overdose on Klonopin and that patient is currently being tapered off Klonopin and Ambien. Magaly verbalized agreement with tapers, indicated he is aware of patient's multiple visits to ER Message left requesting return call. I stop review completed 08/10/16 VITALS: See below NEW TEST RESULTS: 08/12/16 labs indicated elevated BUN and glucose and low AGR MEDICAL/SURGICAL HISTORY: Per [facility] report, patient has history of hypertension, diabetes mellitus, obesity, COPD, chronic back pain, CHF, insomnia , hyperlipidemia Patient has surgical history of appendectomy, , colonoscopy, fracture repair to left ankle/leg, removal of ovarian cysts Refer to [facility] report for baseline lab results 08/09/16 repeat labs on admission indicated elevated chloride, BUN, creatinine, glucose and low carbon dioxide, calcium, magnesium, GFR. [facility] 08/09/16 UDS negative, possible false negative for Klonopin [facility] 08/08/16 HCG negative - patient indicates she receives Depo-Provera IM q 12 weeks, denies risk for , verbalizes understanding of the risks associated with psychotropic medications to unborn child should she become while taking psychotropic medication. [facility] 08/08/16 EKG normal sinus rhythm, cannot rule out anterior infarct, age undetermined abnormal ECG [facility] 08/08/2016 EKG normal sinus rhythm low voltage QRS cannot rule out anterior infarct, age undetermined abnormal ECG 08/10/16 EKG sinus tachycardia low QRS voltage in precordial leads nonspecific T- wave abnormality abnormal rhythm ECG no prior tracing and system. Clinical consultation sought on 3 recent EKGs, recommendation made for follow-up with outpatient provider CURRENT MEDICATIONS: See below MENTAL STATUS EXAMINATION: General appearance: Patient is a 40-year old female, who is cooperative but remains evasive, appears less disheveled today, dressed in hospital clothing, makes improved eye contact, ambulates with steady gait, appears stated age. Speech: Of normal rate, rhythm, volume, spontaneous, coherent Thought processes: No delay today, linear linear and logical, goal-directed Thought content: Logical, no tangentiality noted, no paranoia noted Abstract reasoning and computation: Appears intact Description of associations: Appear ntact Description of abnormal or psychotic thoughts: Denies suicidal or homicidal ideation, denies auditory or visual hallucinations, does not appear to be responding to internal stimuli, does not endorse bizarre or paranoid ideation, denies preoccupation with violence Judgment: Limited Insight: Limited Orientation: A and O 3 Recent and remote memory: Appear intact, patient remains evasive and provides conflicting information but this does not appear to be associated with memory challenges Attention span and concentration: Improved Fund of knowledge: Appears adequate Mood: "I feel much better and I thought it was in a go home tomorrow, I really wish I go home tomorrow." Patient reports improvement to anxiety and depression , no mood lability noted Affect: Mild constriction, brightens at times, congruent with mood DIAGNOSES: Unspecified mood disorder, rule out substance-induced mood disorder, rule out polysubstance use disorder, rule out bipolar disorder, rule out anxiety disorder, rule out MDD, rule out PTSD, rule out bereavement, rule out personality disorder ASSESSMENT: Patient remains visible on unit, is cooperative with staff, has been attending unit activities and socializing with peers, and has presented with no behavior management challenges. Patient continues to provide vague report pertaining to events which led to current hospitalization, reiterates today she does not remember events which preceded hospitalization and informs casualty underwriter she took 7 Klonopin tablets, not 15, reiterates today was not a suicide attempt. Patient verbalizes agreement with discontinuation of Ambien and continuation of Klonopin taper in preparation for discharge, makes requests for new sleep aid trial. Patient reiterates today she wants to stay on medication regimen which was being prescribed by [facility] outpatient provider, indicates regimen is effective, denies need for dosing adjustment, and denies medication side effects. Will initiate Rozerem in effort to address patient's residual sleep challenges and will continue to encourage patient to consider transitioning to medication regimen which may more efficiently address presenting symptoms than the numerous psychotropic medications she is currently taking. Will continue to evaluate patient's safety, resolution of suicidal ideation, and discharge readiness. Patient reiterates today that she and boyfriend have resolved their differences and plan is for her to return home with him when she is prepared for discharge. Patient reiterates when she discharges she would like to resume outpatient medication management through [facility], states she has never participated in outpatient psychotherapy, indicates she is agreeable to participating in therapy when discharged, also notes she would like to continue to receive case management services through [facility]. MANAGEMENT PLAN: Reduce Klonopin to 0.5 mg po am then stop. Discontinue Ambien 5 mg po hs PRN insomnia. Continue Wellbutrin XL 300 mg po q day, Celexa 40 mg po q day, Zyprexa 10 mg po q hs, Minipress 2 mg po q hs, and Atarax 50 mg po q 6 hours PRN anxiety. Initiate med trial Rozerem 8 mg po hs PRN insomnia. Maintain safety precautions Patient to attend groups and participate in unit programming to develop coping strategies Engage patient in discharge planning process and arrange meeting with support system to ensure safe discharge planning when appropriate Patient to follow up with PCM upon discharge TIME SPENT: 35 minutes Vital Signs Vital Signs Date Time Temp Pulse Resp B/P (MAP) Pulse Ox O2 Delivery O2 Flow Rate FiO2 08/14/16 08:47 135/91 08/14/16 06:37 98.4 94 18 08/13/16 06:20 Room Air 08/09/16 20:10 98 Laboratory Data 24H Labs Laboratory Tests 2 08/13/16 17:04: Bedside Glucose (Misc Panel) 257H 08/14/16 06:17: Bedside Glucose (Misc Panel) 234H Current Medications Current Medications Acetaminophen (Tylenol Tab) 650 mg Q6HP PRN PO HEADACHE or DISCOMFORT Last administered on 08/13/16t 20:30; Start 08/09/16 at 23:00; Stop 09/08/16 at 22:59 Al Hydrox/Mg Hydrox/Simethicone (Mylanta) 30 ml Q4HP PRN PO HEARTBURN/ INDIGESTION; Start 08/09/16 at 23:00; Stop 09/08/16 at 22:59 Albuterol Sulfate (Proventil, Ventolin Hfa) 2 puff QIDP PRN INH SOB/WHEEZING; Start 08/09/16 at 23:00; Stop 09/08/16 at 22:59 Bupropion HCl (Wellbutrin Xl) 300 mg DAILY PO Last administered on 08/14/16 08 :48; Start 08/10/16 at 09:00; Stop 09/09/16 at 08:59 Citalopram Hydrobromide (CeleXA) 40 mg DAILY PO Last administered on 08/14/16 08:47; Start 08/10/16 at 09:00; Stop 09/09/16 at 08:59 Clonazepam (KlonoPIN) 0.5 mg BID PO Last administered on 08/14/16 08:47; Start 08/13/16 at 21:00; Stop 08/15/16 at 09:00 Clonazepam (KlonoPIN) 0.5 mg QAM PO Last administered on 08/13/16 08:37; Start 08/11/16 at 09:00; Stop 08/13/16 at 18:14; Status DC Clonazepam (KlonoPIN) 1 mg BID PO Last administered on 08/10/16 09:49; Start 08/09/16 at 21:00; Stop 08/10/16 at 16:37; Status DC Clonazepam (KlonoPIN) 1 mg QHS PO Last administered on 08/12/16 20:18; Start 08/10/16 at 21:00; Stop 08/13/16 at 18:14; Status DC Gabapentin (Neurontin) 800 mg TID PO Last administered on 08/14/16 16:07; Start 08/09/16 at 21:00; Stop 09/08/16 at 20:59 Glipizide (Glucotrol) 5 mg BID@0730,1730 PO Last administered on 08/14/16 06: 34; Start 08/09/16 at 17:30; Stop 09/08/16 at 17:29 Home Med (Med Rec Complete!) ASDIRECTED XX ; Start 08/09/16 at 17:45; Stop at 17:45; Status DC Hydrochlorothiazide (Hydrodiuril) 25 mg DAILY PO Last administered on 08:47; Start 08/10/16 at 09:00; Stop 09/09/16 at 08:59 Hydroxyzine HCl (Atarax) 50 mg Q6HP PRN PO ANXIETY Last administered on 10:56; Start 08/09/16 at 23:00; Stop 09/08/16 at 22:59 Lisinopril (Prinivil) 5 mg DAILY PO Last administered on 08/14/16 08:47; Start 08/10/16 at 09:00; Stop 09/09/16 at 08:59 Loperamide HCl (Imodium) 2 mg ASDIRECTED PRN PO DIARRHEA; Start 08/09/16 at 23: 00; Stop 09/08/16 at 22:59 Losartan Potassium (Cozaar) 50 mg DAILY PO Last administered on 08/14/16 08:48 ; Start 08/10/16 at 09:00; Stop 09/09/16 at 08:59 Magnesium Hydroxide (Milk Of Magnesia) 30 ml DAILYPRN PRN PO CONSTIPATION; Start 08/09/16 at 23:00; Stop 09/08/16 at 22:59 Metformin HCl (Glucophage) 1,000 mg BID@ PO Last administered on 08:47; Start 08/09/16 at 18:00; Stop 09/08/16 at 17:59 Miscellaneous (Unresolved Patient Own Med Order) SEE LABEL COMMENTS UNRESOLVED XX ; Start 08/10/16 at 00:01; Stop 08/12/16 at 20:22; Status DC Olanzapine (ZyPREXA) 10 mg QHS PO Last administered on 08/13/16 20:29; Start 08/09/16 at 21:00; Stop 09/08/16 at 20:59 Omeprazole (PriLOSEC) 40 mg DAILY PO Last administered on 08/14/16 08:47; Start 08/10/16 at 09:00; Stop 09/09/16 at 08:59 Ondansetron HCl (Zofran) 4 mg Q4HP PRN PO NAUSEA OR VOMITING; Start 08/09/16 at 23:00; Stop 09/08/16 at 22:59 Patient Own Medication (Patient'S Own Med) 45mg QHS PO Last administered on 20:31; Start 08/10/16 at 21:00; Stop 09/09/16 at 20:59 Prazosin HCl (Minipress) 2 mg QHS PO Last administered on 08/13/16 20:29; Start 08/09/16 at 21:00; Stop 09/08/16 at 20:59 Simvastatin (Zocor) 10 mg QHS PO Last administered on 08/13/16 20:27; Start at 21:00; Stop 09/08/16 at 20:59 Tizanidine HCl (Zanaflex) 4 mg TID PO Last administered on 08/14/16 16:07; Start 08/09/16 at 21:00; Stop 09/08/16 at 20:59 Zolpidem Tartrate (Ambien) 5 mg QHSP PRN PO INSOMNIA Last administered on 20:29; Start 08/10/16 at 16:45; Stop 08/14/16 at 16:41; Status DC Zolpidem Tartrate (Ambien) 10 mg QHSP PRN PO INSOMNIA Last administered on 08/09 23:35; Start 08/09/16 at 23:00; Stop 08/10/16 at 16:37; Status DC Allergies Coded Allergies: Cephalexin (Verified Allergy, Unknown, 03/02/15) Abigail Heath Aug 14, 2016 16:43
[2016-08-14 18:17] VITALS: BP 129/60
[2016-08-14] MEDS: ACETAMINOPHEN TAB 650MG DOSE (2X325MG) PO PRN (20:00)
[2016-08-14] MEDS: OLANZapine 10 MG TAB PO SCH (20:01)
[2016-08-14] MEDS: PRAZOSIN 1 MG CAP PO SCH (20:03)
[2016-08-14] MEDS: SIMVASTATIN 10 MG TAB PO SCH (20:04)
[2016-08-14] MEDS: RAMELTEON 8 MG TAB (ROZEREM) PO PRN (20:05)
[2016-08-14] MEDS ORDERED: RAMELTEON 8 MG TAB (ROZEREM) PO SCH (21:00)
[2016-08-15 06:37] VITALS: BP 107/57
[2016-08-15] MEDS: metFORMIN (GLUCOPHAGE) 1000 MG TABLET PO SCH ×2 (07:22→17:14)
[2016-08-15] MEDS: glipiZIDE (GLUCOTROL) 5 MG TAB PO SCH ×2 (07:22→17:14)
[2016-08-15] MEDS: hydroCHLOROthiazide 25 MG TAB PO SCH (08:02)
[2016-08-15] MEDS: OMEPRAZOLE 20 MG CAP PO SCH (08:02)
[2016-08-15] MEDS: tiZANidine 4 MG TAB PO SCH ×3 (08:02→20:01)
[2016-08-15] MEDS: buPROPion **XL** TABLET 150MG (WELLBUTRIN XL) PO SCH (08:02)
[2016-08-15] MEDS: clonazePAM 0.5 MG TAB PO SCH (08:02)
[2016-08-15] MEDS: LOSARTAN 50 MG TAB PO SCH (08:03)
[2016-08-15] MEDS: CitaloPRAM (CeleXA) 20 MG TAB PO SCH (08:03)
[2016-08-15] MEDS: LISINOPRIL 5 MG TAB PO SCH (08:03)
[2016-08-15] MEDS: GABAPENTIN 400 MG CAP PO SCH ×3 (08:03→20:03)
--- NOTE | 2016-08-15 09:17 | MHIPNPDOC ---
[facility] Progress Note Progress Note DATE OF SERVICE: 08/15/16 HISTORY OF THE PRESENT ILLNESS: Patient is a 40-year-old female, who was transferred from [facility] after overdosing on Klonopin after argument with boyfriend. At time of admission patient admitted to taking 15 Klonopin tablets, denied this was a suicide attempt and stated she took the Klonopin in 5 pill increments over the course of the day. Patient denies history of prior psychiatric inpatient treatment, further denies history of suicide attempt or self-injurious behavior, however, indicates she has lengthy outpatient psychiatric history dating back to childhood, is unable to provide clear details on treatment or medication history. Mathematics Improvement Teacher met with patient today to assess treatment progress on inpatient unit. Patient indicates she continues to feel better, today denies symptoms of anxiety and depression denies suicidal and homicidal ideation, denies auditory and visual hallucinations, denies urge to engage in self-injurious behavior. Patient has now completed both Ambien and Klonopin tapers, denies symptoms of craving or withdrawal, indicates she is "relieved and happy" regarding no longing taking aforementioned medications. Patient continues to utilize hydroxyzine PRN to address intermittent symptoms of anxiety, notes medication is effective. Patient trial Rozerem for sleep last night, indicates medication "worked great, I slept like a baby," denies experiencing nightmare symptoms. Patient continues to appear brighter, speech is clear with no slurring noted, more spontaneous, no indication of paranoia. Patient reports improvement in energy level, improvement concentration and focus, and denies challenges with appetite. Patient continues to deny need for other medication changes, states medication regimen is effective, denies need for medication/dosing changes, and denies medication side effects, no indication of tremor noted or reported. Patient has consistently indicated she has never participated in outpatient psychotherapy, states she is willing to engage in therapy post discharge from inpatient treatment. Patient indicates her boyfriend has been visiting her on the unit and states visitation continues to go well, is aware she has family meeting scheduled for later today. Of note: Patient indicates in the past she has trialed Seroquel, Risperdal, lithium, and latuda, indicates aforementioned medications were ineffective/ caused side effects. Patient states she is also taken Xanax, provides evasive and conflicting response when asked why medication was discontinued. Addendum: On 08/14/16 chief underwriter spoke with outpatient [facility] prescriber, Michael Mckenzie, to inform of patient's recent overdose on Klonopin and that patient is currently being tapered off Klonopin and Ambien. Magaly verbalized agreement with tapers, indicated he is aware of patient's multiple visits to ER Message left requesting return call. I stop review completed 08/10/16 VITALS: See below NEW TEST RESULTS: 08/12/16 labs indicated elevated BUN and glucose and low AGR MEDICAL/SURGICAL HISTORY: Per [facility] report, patient has history of hypertension, diabetes mellitus, obesity, COPD, chronic back pain, CHF, insomnia , hyperlipidemia Patient has surgical history of appendectomy, , colonoscopy, fracture repair to left ankle/leg, removal of ovarian cysts Refer to [facility] report for baseline lab results 08/09/16 repeat labs on admission indicated elevated chloride, BUN, creatinine, glucose and low carbon dioxide, calcium, magnesium, GFR. [facility] 08/09/16 UDS negative, possible false negative for Klonopin [facility] 08/08/16 HCG negative - patient indicates she receives Depo-Provera IM q 12 weeks, denies risk for , verbalizes understanding of the risks associated with psychotropic medications to unborn child should she become while taking psychotropic medication. [facility] 08/08/16 EKG normal sinus rhythm, cannot rule out anterior infarct, age undetermined abnormal ECG [facility] 08/08/2016 EKG normal sinus rhythm low voltage QRS cannot rule out anterior infarct, age undetermined abnormal ECG 08/10/16 EKG sinus tachycardia low QRS voltage in precordial leads nonspecific T- wave abnormality abnormal rhythm ECG no prior tracing and system. Clinical consultation sought on 3 recent EKGs, recommendation made for follow-up with outpatient provider, patient is asymptomatic and verbalizes understanding of need to follow-up with outpatient provider. CURRENT MEDICATIONS: See below MENTAL STATUS EXAMINATION: General appearance: Patient is a 40-year old female, who is cooperative and less evasive today, appears less disheveled today, dressed in hospital clothing , makes improved eye contact, ambulates with steady gait, appears stated age. Speech: Of normal rate, rhythm, volume, spontaneous, coherent Thought processes: Of normal rate, rhythm, volume, spontaneous, coherent, no delay or slurring Thought content: Logical, no tangentiality noted, no paranoia noted Abstract reasoning and computation: Appears intact Description of associations: Appear ntact Description of abnormal or psychotic thoughts: Denies suicidal or homicidal ideation, denies auditory or visual hallucinations, does not appear to be responding to internal stimuli, does not endorse bizarre or paranoid ideation, denies preoccupation with violence Judgment: Limited, some improvement noted during treatment Insight: Limited, some improvement in mood during treatment Orientation: A and O 3 Recent and remote memory: Appear intact, patient remains evasive and provides conflicting information but this does not appear to be associated with memory challenges Attention span and concentration: Improved Fund of knowledge: Appears adequate Mood: "I feel a lot better, I slept well last night, and I feel ready to go home tomorrow." Patient reports improvement to anxiety and depression, no mood lability noted Affect: Full range, congruent with mood DIAGNOSES: Unspecified mood disorder, rule out substance-induced mood disorder, rule out polysubstance use disorder, rule out bipolar disorder, rule out anxiety disorder, rule out MDD, rule out PTSD, rule out bereavement, rule out personality disorder ASSESSMENT: Patient remains visible on unit, is cooperative with staff, has been attending unit activities and socializing with peers, and has presented with no behavior management challenges. Patient continues to provide vague report pertaining to events which led to current hospitalization, reiterates today she does not remember events which preceded hospitalization and informs chief underwriter she took 7 Klonopin tablets, not 15, reiterates today was not a suicide attempt. Patient has now completed Ambien and Klonopin tapers, denies symptoms of craving or withdrawal. Was started on Rozerem PRN last night for sleep, indicates medication worked well. Patient reiterates today she wants to stay on medication regimen which was being prescribed by [facility] health outpatient provider, indicates regimen is effective, denies need for dosing adjustment, and denies medication side effects. Will continue to encourage patient to consider transitioning to medication regimen which may more efficiently address presenting symptoms than the numerous psychotropic medications she is currently taking, patient indicates she will address with her outpatient provider. Will continue to evaluate patient's safety and discharge readiness. Patient reiterates today that she and boyfriend have resolved their differences and plan is for her to return home with him when she is prepared for discharge, is aware she is being evaluated for discharge tomorrow if stable. Patient reiterates she would like to resume outpatient medication management through [facility], states she has never participated in outpatient psychotherapy, indicates she is agreeable to participating in therapy when discharged, also notes she would like to continue to receive case management services through [facility]. Addendum: community engagement coordinator indicates patient's boyfriend has already removed and destroyed/turned in to pharmacy all used psychotropic medications from home. MANAGEMENT PLAN: Discontinue Klonopin to 0.5 mg po am, taper complete. Discontinue Ambien 5 mg po hs PRN insomnia, taper complete. Continue Wellbutrin XL 300 mg po q day, Celexa 40 mg po q day, Zyprexa 10 mg po q hs, Minipress 2 mg po q hs, Atarax 50 mg po q 6 hours PRN anxiety, and Rozerem 8 mg po hs PRN insomnia. Maintain safety precautions Patient to attend groups and participate in unit programming to develop coping strategies Engage patient in discharge planning process and arrange meeting with support system to ensure safe discharge planning when appropriate Patient to follow up with PCM regarding recent EKG results and any other health concerns within 5-7 days of discharge TIME SPENT: 35 minutes Vital Signs Vital Signs Date Time Temp Pulse Resp B/P (MAP) Pulse Ox O2 Delivery O2 Flow Rate FiO2 08/15/16 08:03 124/78 08/15/16 06:37 97.5 97 18 08/13/16 06:20 Room Air 08/09/16 20:10 98 Laboratory Data 24H Labs Laboratory Tests 2 08/14/16 17:06: Bedside Glucose (Misc Panel) 214H 08/15/16 06:05: Bedside Glucose (Misc Panel) 181H Current Medications Current Medications Acetaminophen (Tylenol Tab) 650 mg Q6HP PRN PO HEADACHE or DISCOMFORT Last administered on 08/14/16t 20:00; Start 08/09/16 at 23:00; Stop 09/08/16 at 22:59 Al Hydrox/Mg Hydrox/Simethicone (Mylanta) 30 ml Q4HP PRN PO HEARTBURN/ INDIGESTION; Start 08/09/16 at 23:00; Stop 09/08/16 at 22:59 Albuterol Sulfate (Proventil, Ventolin Hfa) 2 puff QIDP PRN INH SOB/WHEEZING; Start 08/09/16 at 23:00; Stop 09/08/16 at 22:59 Bupropion HCl (Wellbutrin Xl) 300 mg DAILY PO Last administered on 08/15/16 08 :02; Start 08/10/16 at 09:00; Stop 09/09/16 at 08:59 Citalopram Hydrobromide (CeleXA) 40 mg DAILY PO Last administered on 08/15/16 08:03; Start 08/10/16 at 09:00; Stop 09/09/16 at 08:59 Clonazepam (KlonoPIN) 0.5 mg BID PO Last administered on 08/15/16 08:02; Start 08/13/16 at 21:00; Stop 08/15/16 at 11:00 Clonazepam (KlonoPIN) 0.5 mg QAM PO Last administered on 08/13/16 08:37; Start 08/11/16 at 09:00; Stop 08/13/16 at 18:14; Status DC Clonazepam (KlonoPIN) 1 mg BID PO Last administered on 08/10/16 09:49; Start 08/09/16 at 21:00; Stop 08/10/16 at 16:37; Status DC Clonazepam (KlonoPIN) 1 mg QHS PO Last administered on 08/12/16 20:18; Start 08/10/16 at 21:00; Stop 08/13/16 at 18:14; Status DC Gabapentin (Neurontin) 800 mg TID PO Last administered on 08/15/16 08:03; Start 08/09/16 at 21:00; Stop 09/08/16 at 20:59 Glipizide (Glucotrol) 5 mg BID@0730,1730 PO Last administered on 08/15/16 07: 22; Start 08/09/16 at 17:30; Stop 09/08/16 at 17:29 Home Med (Med Rec Complete!) ASDIRECTED XX ; Start 08/09/16 at 17:45; Stop at 17:45; Status DC Hydrochlorothiazide (Hydrodiuril) 25 mg DAILY PO Last administered on 08:02; Start 08/10/16 at 09:00; Stop 09/09/16 at 08:59 Hydroxyzine HCl (Atarax) 50 mg Q6HP PRN PO ANXIETY Last administered on 20:06; Start 08/09/16 at 23:00; Stop 09/08/16 at 22:59 Lisinopril (Prinivil) 5 mg DAILY PO Last administered on 08/15/16 08:03; Start 08/10/16 at 09:00; Stop 09/09/16 at 08:59 Loperamide HCl (Imodium) 2 mg ASDIRECTED PRN PO DIARRHEA; Start 08/09/16 at 23: 00; Stop 09/08/16 at 22:59 Losartan Potassium (Cozaar) 50 mg DAILY PO Last administered on 08/15/16 08:03 ; Start 08/10/16 at 09:00; Stop 09/09/16 at 08:59 Magnesium Hydroxide (Milk Of Magnesia) 30 ml DAILYPRN PRN PO CONSTIPATION; Start 08/09/16 at 23:00; Stop 09/08/16 at 22:59 Metformin HCl (Glucophage) 1,000 mg BID@ PO Last administered on 07:22; Start 08/09/16 at 18:00; Stop 09/08/16 at 17:59 Miscellaneous (Unresolved Patient Own Med Order) SEE LABEL COMMENTS UNRESOLVED XX ; Start 08/10/16 at 00:01; Stop 08/12/16 at 20:22; Status DC Olanzapine (ZyPREXA) 10 mg QHS PO Last administered on 08/14/16 20:01; Start 08/09/16 at 21:00; Stop 09/08/16 at 20:59 Omeprazole (PriLOSEC) 40 mg DAILY PO Last administered on 08/15/16 08:02; Start 08/10/16 at 09:00; Stop 09/09/16 at 08:59 Ondansetron HCl (Zofran) 4 mg Q4HP PRN PO NAUSEA OR VOMITING; Start 08/09/16 at 23:00; Stop 09/08/16 at 22:59 Patient Own Medication (Patient'S Own Med) 45mg QHS PO Last administered on 20:04; Start 08/10/16 at 21:00; Stop 09/09/16 at 20:59 Prazosin HCl (Minipress) 2 mg QHS PO Last administered on 08/14/16 20:03; Start 08/09/16 at 21:00; Stop 09/08/16 at 20:59 Ramelteon (Rozerem) 8 mg QHS PO ; Start 08/14/16 at 21:00; Stop 08/14/16 at 21: 00; Status DC Ramelteon (Rozerem) 8 mg QHS PRN PO insomnia Last administered on 08/14/16 20: 05; Start 08/14/16 at 21:00; Stop 09/13/16 at 20:59 Simvastatin (Zocor) 10 mg QHS PO Last administered on 08/14/16 20:04; Start at 21:00; Stop 09/08/16 at 20:59 Tizanidine HCl (Zanaflex) 4 mg TID PO Last administered on 08/15/16 08:02; Start 08/09/16 at 21:00; Stop 09/08/16 at 20:59 Zolpidem Tartrate (Ambien) 5 mg QHSP PRN PO INSOMNIA Last administered on 20:29; Start 08/10/16 at 16:45; Stop 08/14/16 at 16:41; Status DC Zolpidem Tartrate (Ambien) 10 mg QHSP PRN PO INSOMNIA Last administered on 08/09 23:35; Start 08/09/16 at 23:00; Stop 08/10/16 at 16:37; Status DC Allergies Coded Allergies: Cephalexin (Verified Allergy, Unknown, 03/02/15) Abigail eHath Aug 15, 2016 09:17
[2016-08-15] MEDS: hydrOXYzine 50 MG TAB PO PRN (16:33)
[2016-08-15] MEDS: ACETAMINOPHEN TAB 650MG DOSE (2X325MG) PO PRN (16:34)
[2016-08-15 18:11] VITALS: BP 122/68
[2016-08-15] MEDS: RAMELTEON 8 MG TAB (ROZEREM) PO PRN (20:01)
[2016-08-15] MEDS: SIMVASTATIN 10 MG TAB PO SCH (20:01)
[2016-08-15] MEDS: PRAZOSIN 1 MG CAP PO SCH (20:02)
[2016-08-15] MEDS: OLANZapine 10 MG TAB PO SCH (21:54)
[2016-08-16 06:45] VITALS: BP 148/66
[2016-08-16] MEDS: glipiZIDE (GLUCOTROL) 5 MG TAB PO SCH (06:45)
[2016-08-16] MEDS: buPROPion **XL** TABLET 150MG (WELLBUTRIN XL) PO SCH (08:02)
[2016-08-16 08:03] VITALS: BP 148/66
[2016-08-16] MEDS: metFORMIN (GLUCOPHAGE) 1000 MG TABLET PO SCH (08:03)
[2016-08-16] MEDS: CitaloPRAM (CeleXA) 20 MG TAB PO SCH (08:03)
[2016-08-16] MEDS: LISINOPRIL 5 MG TAB PO SCH (08:03)
[2016-08-16] MEDS: hydrOXYzine 50 MG TAB PO PRN (08:03)
[2016-08-16] MEDS: OMEPRAZOLE 20 MG CAP PO SCH (08:03)
[2016-08-16] MEDS: LOSARTAN 50 MG TAB PO SCH (08:03)
[2016-08-16] MEDS: tiZANidine 4 MG TAB PO SCH (08:03)
[2016-08-16] MEDS: hydroCHLOROthiazide 25 MG TAB PO SCH (08:03)
[2016-08-16] MEDS: GABAPENTIN 400 MG CAP PO SCH (08:03)
[2016-08-16 10:10] VITALS: BP 144/77
[2016-08-16] MEDS ORDERED: CELE40TA PO (11:05)
[2016-08-16] MEDS ORDERED: WELLTAB40 PO (11:05)
[2016-08-16] MEDS ORDERED: HYDRO50TAB PO (11:05)
[2016-08-16] MEDS ORDERED: ROZE8TAB9 PO (11:05)
[2016-08-16] MEDS ORDERED: OLAN10TA2 PO (11:05)
[2016-08-16] MEDS ORDERED: PRAZ2CAP PO (11:05)
[2016-08-16] MEDS ORDERED: LOPE2TAB5 PO (11:12)
[2016-08-16] MEDS ORDERED: ZOFR20TA PO (11:12)
[2016-08-16] MEDS ORDERED: LOSA50TA20 PO (11:12)
[2016-08-16] MEDS ORDERED: OMEP40CA2 PO (11:12)
[2016-08-16] MEDS ORDERED: PIOG45TA2 PO (11:12)
[2016-08-16] MEDS ORDERED: LISI-542 PO (11:12)
[2016-08-16] MEDS ORDERED: HYDR25TAB PO (11:12)
[2016-08-16] MEDS ORDERED: TIZA4CAP3 PO (11:12)
[2016-08-16] MEDS ORDERED: ALBU17IN INH (11:12)
[2016-08-16] MEDS ORDERED: GABA800T PO (11:12)
[2016-08-16] MEDS ORDERED: GLIP5TAB8 PO (11:12)
[2016-08-16] MEDS ORDERED: METF1000 PO (11:12)
[2016-08-16] MEDS ORDERED: SIMV10TA2 PO (11:12)
--- NOTE | 2016-08-16 11:15 | IPNPDOC ---
Text Note Date of Service The patient was seen on 08/16/16. NOTE Patients medications where brought in and the patient had a large amount of accumulated medical and psychiatric medicines, after speaking with the patient she was agreeable to destroying her old scripts and receiving new scripts for 5 days supplies with 4 refills to prevent accumulation. [facility] ( [facility]) to cancel all previous scripts so that the patient wouldn't have the ability to overdose on refilled scripts. GME ATTESTATION My preceptor for this patient encounter was physically present in the building during the encounter and was fully available. As needed, all aspects of the patient interview, examination, medical decision making process, and medical care plan development were reviewed and approved by the preceptor. Preceptor is aware and concurs with the plan as stated in the body of this note and will attest to such by his/her cosignature. JIMBO DESAI DO Aug 16, 2016 11:15
--- NOTE | 2016-08-16 11:24 | MHDSPDOC ---
[facility] Discharge Summary Discharge Summary DATE OF ADMISSION: Aug 09, 2016 at 17:23 DATE OF DISCHARGE: Aug 16, 2016 HISTORY: Patient is a 40-year-old female, who was transferred from [facility]. Per [facility] notes patient was engaged in a fight with her boyfriend and may have overdosed on Klonopin as a suicide attempt. Patient was apparently transported to [facility] by boyfriend. Patient informed [facility] staff that she had taken 15 Klonopin tablets just prior to being evaluated in ER, per ER notes patient presented with drowsiness and obtundation (lethargic ), symptoms are described as moderate. Patient informed ER staff that she had been depressed and upset, ER note also indicates possibly paranoid, had been experiencing anger with suicidal thoughts. Patient denied experiencing confusion , hallucinations or delusions to ER staff. Per [facility] ER report, patient has been seen in their emergency department 20 times in the past 2 years, usually for pain-related complaints. When patient arrived at [facility] she informed emergency room staff that she had had an argument with her boyfriend, took 15 Klonopin tablets, denied this was a suicide attempt and stated that she took the Klonopin in 5 pill increments over the course of the day. Patient denies history of prior psychiatric inpatient treatment, denies history of suicide attempt or self-injurious behavior. Patient reports experiencing an increase in the following symptoms within the past 2 weeks: Depression, anxiety , helplessness and hopelessness, impulse control challenges, relationship strain , hypersomnia, denies suicidal ideation, and denies suicidal gesture. Patient reports experiencing 5/10 anxiety, denies depression, denies suicidal and homicidal ideation, denies auditory and visual hallucinations, and denies urge to engage in self-injurious behavior. Patient endorses history of discomfort in social settings, panic attacks, is vague in terms of panic symptoms and last occurrence, endorses impulse control challenges, denies compulsive behavior, denies history of aggression or unsanctioned violence, and denies having access to weapons in the home. Patient denies experiencing dissociative symptoms, reports history of mood lability which is made level by Jadenyprexa, states she has a history of being diagnosed with bipolar disorder, is unable to provide description of symptoms. Patient denies appetite challenges, indicates she struggles with sleep maintenance, denies latency challenges, reports history of "nightmares with flashbacks," indicates she experiences nightmares approximately 3 times per month. Patient endorses symptoms of reexperiencing, avoidance, and hypervigilance which she attributes to witnessing her brother's suicide in 2015 and the loss of her mother and father in 2015. Patient states she has been receiving outpatient medication management through [facility] for the past year, is currently being prescribed Klonopin and Ambien, among other psychotropic medications, states medication regimen is effective, denies need for medication/dosing changes, and denies medication side effects. Patient states she does not participate in psychotherapy and is declining to sign release of information to permit communication between [facility] and outpatient medication prescriber. I stop review completed 08/10/16 PSYCHIATRIC REVIEW OF SYSTEMS AT TIME OF ADMISSION: Affective: Dysthymic Anxiety: Endorses. Trauma: Endorses history of trauma. Psychosis: Denies. 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 PAST PSYCHIATRIC HISTORY: Prior Psychiatric Disorder: Provides conflicting information, states she has been "off and on medications all my life, I took them when I had Medicaid and stopped when I didn't." Patient initially states she was receiving treatment in [place] before relocating to the [facility], then states she did not, informs lyric writer she has been diagnosed with bipolar, depression, anxiety, and PTSD in the past Outpatient Treatment: States she is currently going to [facility] for medication management, denies participating in psychotherapy. Patient states she has never participated in psychotherapy Suicidal/Self injurious: Denies Psychotropic Medication History: Patient unable to provide detailed information , states she may have taken Seroquel, Risperdal, lithium and Xanax at one point , is refusing to sign release permitting communication with current outpatient provider. MEDICAL/SURGICAL HISTORY: Per [facility] report, patient has history of hypertension, diabetes mellitus, obesity, COPD, chronic back pain, CHF, insomnia , hyperlipidemia Patient has surgical history of appendectomy, , colonoscopy, fracture repair to left ankle/leg, removal of ovarian cysts Refer to [facility] report for baseline lab results. 08/09/16 labs on admission indicated elevated chloride, BUN, creatinine, glucose and low carbon dioxide, calcium, magnesium, GFR. 08/12/16 follow-up labs indicated elevated BUN and glucose and low AGR, PA aware and has addressed. [facility] 08/09/16 UDS negative, possible false negative for Klonopin [facility] 08/08/16 HCG negative - patient indicates she receives Depo-Provera IM q 12 weeks, denies risk for , verbalizes understanding of the risks associated with psychotropic medications to unborn child should she become while taking psychotropic medication. [facility] 08/08/16 EKG normal sinus rhythm, cannot rule out anterior infarct, age undetermined abnormal ECG [facility] 08/08/2016 EKG normal sinus rhythm low voltage QRS cannot rule out anterior infarct, age undetermined abnormal ECG 08/10/16 EKG sinus tachycardia low QRS voltage in precordial leads nonspecific T- wave abnormality abnormal rhythm ECG no prior tracing and system. Clinical consultation sought on 3 recent EKGs, recommendation made for follow-up with outpatient provider, patient is asymptomatic and verbalizes understanding of need to follow-up with outpatient provider. FAMILY PSYCHIATRIC HISTORY: Mother- bipolar Brother - bipolar SOCIAL HISTORY: Early Relations/development: Patient states she was born and raised in [place] by parents in intact relationship, indicates she moved to [place] from [place] 3 years ago. Patient states both parents are Sibling order: Patient is second oldest child, has 2 older brothers one of whom is , and one sister Paternal relationships: States boyfriend is supportive, indicates she is not close to her siblings, states she is close to her son who lives with her Education: Dropped out of high school in the 11th grade Occupational: Patient is unemployed, cannot remember the last time she worked, is not collecting disability, is unable to tell lyric writer about her work experience Legal: Initially denies, then indicates she was on probation 1 year for resisting arrest for reason she cannot remember Martial: Declines to discuss history of marriage, indicates she has a boyfriend of 3 years with whom she lives along with her 18-year-old son Economic: Unemployed, does not collect disability Supports: Limited Abuse/trauma: Denies history of abuse, trauma, or witnessing domestic violence in the home while growing up, indicates she was traumatized by family deaths and by witnessing brother's suicide SUBSTANCE ABUSE HISTORY: Patient informs lyric writer she has not consumed alcohol for the past 3 years, notes prior to that she drank "a few drinks on the weekends," indicates she smoked marijuana "years ago," indicates she would like to pursue a medical marijuana card. Patient states she has engaged in no other substance use or abuse. Per [facility] ER report patient smokes approximately half a pack of cigarettes per day. TREATMENT PROGRESS ON UNIT: Patient has adjusted well to unit, has been visible and sociable with peers, pleasant with staff, and has presented with no behavior management challenges. During initial contacts with patient she was evasive regarding Ambien and Klonopin use, and has provided conflicting information on the number of Klonopin she took and whether excessive Klonopin use was intentional overdose, vacillated on whether she was suicidal at the time , and initially refused to sign an ELIZABETH's permitting communication with outpatient prescriber. Patient has successfully completed both Ambien and Klonopin tapers, today expresses relief and indicates she feels "better, clearer ," denies symptoms of craving or withdrawal, and indicates symptoms are now effectively managed with other nonaddictive medications. Patient has declined to have additional medication changes made to regimen which may have simplified her pre-existing medication regimen, indicates regimen is working well and denies medication side effects. Patient has utilized hydroxyzine PRN approximately approximately one time per day during her inpatient stay in effort to address intermittent symptoms of anxiety, and was started on Rozerem to address sleep challenges to which she has responded positively and denies medication side effects. Patient denies symptoms of depression, reports low level anxiety only as related to preparing for discharge, denies suicidal and homicidal ideation, denies auditory and visual hallucinations, denies urge to engage in self-injurious behavior. Patient denies symptoms of agitation, irritability, impulsivity, and mood lability. Patient continues to appear brighter, speech is clear with no slurring, is spontaneous, no indication of paranoia. Patient reports improvement to sleep and denies nightmares symptoms, states energy level and concentration and focus have also improved, and indicates appetite is stable. EKG results were again reviewed with patient who is asymptomatic and patient has been instructed to follow-up with outpatient provider. Patient is future oriented and goal directed and is able to effectively engage in the safety planning process, verbalizes concrete strategies for mitigating symptoms of anxiety, depression, suicidal ideation, should they reemerge. Update has been provided to patient's outpatient [facility] prescriber to inform of patient's recent overdose on Klonopin and completion of Ambien and Klonopin tapers Patient's boyfriend indicates he has cleared all of patient's old medications out of the house and brought them to pharmacy to be destroyed with patient's permission and pharmacy was contacted and asked to cancel all pre-existing prescriptions. Patient is aware she will be receiving small quantity prescriptions for all medications, with refills, and will need to follow-up with outpatient providers for ongoing medication management, patient verbalizes understanding. Patient is requesting discharge to home today and family meeting has been completed with boyfriend who denies having concerns pertaining to patient's discharge to home. Patient has consistently indicated she has never participated in outpatient psychotherapy, states she is willing to engage in therapy post discharge from inpatient treatment. Patient is requesting discharge to home today and will resume case management through [facility], medication management through [facility], and will receive psychotherapy through [facility]. Patient verbalizes understanding of and agreement with discharge plan. MENTAL STATUS EXAMINATION ON DISCHARGE: General appearance: Patient is a 40-year old female, who is cooperative, presents with adequate personal hygiene, dressed in hospital clothing, makes adequate eye contact, ambulates with steady gait, appears stated age, no psychomotor agitation or retardation, or tremor noted. Speech: Of normal rate, rhythm, volume, spontaneous, coherent Thought processes: Of normal rate, rhythm, volume, spontaneous, coherent, no delay or slurring Thought content: Logical, no tangentiality noted, no paranoia noted Abstract reasoning and computation: Appears intact Description of associations: Appear ntact Description of abnormal or psychotic thoughts: Denies suicidal or homicidal ideation, denies auditory or visual hallucinations, does not appear to be responding to internal stimuli, does not endorse bizarre or paranoid ideation, denies preoccupation with violence Judgment: Adequate, has improved during treatment Insight: Fair, has improved during treatment Orientation: A and O 3 Recent and remote memory: Appear intact Attention span and concentration: Improved Fund of knowledge: Adequate Mood: "I feel a lot better, clearer, and I feel ready to go home." Patient denies depression, reports low-grade anxiety only as related to discharge, no mood lability noted Affect: Full range, brightens frequently and appropriately, expresses humor, congruent with mood CONDITION ON DISCHARGE: Stable, no suicidal or homicidal ideation DIAGNOSES ON DISCHARGE: Unspecified mood disorder, rule out substance-induced mood disorder, rule out polysubstance use disorder, rule out bipolar disorder, rule out anxiety disorder, rule out MDD, rule out PTSD, rule out bereavement, rule out personality disorder MEDICATIONS ON DISCHARGE: See below FOLLOW UP PLAN: Continue Wellbutrin XL 300 mg po q day, Celexa 40 mg po q day, Zyprexa 10 mg po q hs, Minipress 2 mg po q hs, Atarax 50 mg po q 6 hours PRN anxiety, and Rozerem 8 mg po hs PRN insomnia. Patient to discharge to home today and to be transported by boyfriend, will resume case management services through [facility], and outpatient medication management services through [facility], will also participate in psychotherapy and [facility] Patient to follow-up with PCM regarding recent EKG results and any other health concerns within 5-7 days of discharge TIME SPENT COORDINATING CARE: 40 minutes Vital Signs/I&Os Vital Signs Date Time Temp Pulse Resp B/P (MAP) Pulse Ox O2 Delivery O2 Flow Rate FiO2 08/16/16 10:10 144/77 (99) 08/16/16 06:45 97.1 86 18 08/13/16 06:20 Room Air Laboratory Data Labs 24H Laboratory Tests 2 08/15/16 16:36: Bedside Glucose (Misc Panel) 231H 08/16/16 06:18: Bedside Glucose (Misc Panel) 155H Medications Scheduled Bupropion HCl (Bupropion HCl Xl) 300 Mg Tab, 300 MG PO DAILY, (Reported) Bupropion HCl (Wellbutrin Xl) 300 Mg Tab, 300 MG PO DAILY for DEPRESSION, #7 Citalopram Hydrobromide (Celexa) 40 Mg Tab, 40 MG PO DAILY, (Reported) Citalopram Hydrobromide (Celexa) 40 Mg Tab, 40 MG PO DAILY for DEPRESSION, #7 Gabapentin (Gabapentin) 800 Mg Tab, 800 MG PO TID for pain, #15 Glipizide (Glipizide) 5 Mg Tab, 5 MG PO BID for diabetes, #5 Hydrochlorothiazide (Hydrochlorothiazide) 25 Mg Tab, 25 MG PO DAILY for HTN, #5 Lisinopril (Lisinopril) 5 Mg Tab, 5 MG PO DAILY for HTN, #5 Losartan Potassium (Losartan Potassium) 50 Mg Tab, 50 MG PO DAILY for HTN, #5 Medroxyprogesterone Acetate (Depo-Provera Contraceptiv) 150 Mg/Ml Inj, 150 MG IM [id number], (Reported) Metformin Hydrochloride (Metformin HCl) 1,000 Mg Tab, 1,000 MG PO BID for Diabetes, #10 Olanzapine (Zyprexa) 10 Mg Tab, 10 MG PO QHS, (Reported) Olanzapine (Olanzapine) 10 Mg Tab, 10 MG PO QHS for MOOD, #7 Omeprazole (Omeprazole) 40 Mg Cap, 40 MG PO DAILY for GERD, #5 Pioglitazone Hydrochloride (Pioglitazone HCl) 45 Mg Tab, 45 MG PO QHS for Diabetes, #5 Prazosin Hcl (Prazosin HCl) 2 Mg Cap, 2 MG PO QHS, (Reported) Prazosin Hcl (Prazosin HCl) 2 Mg Cap, 2 MG PO QHS for nightmares, #7 Simvastatin (Simvastatin) 10 Mg Tab, 10 MG PO QHS for high cholestetrol, #5 Tizanidine Hydrochloride (Tizanidine HCl) 4 Mg Cap, 4 MG PO TID for SPASMS, #15 Scheduled PRN Albuterol Sulfate (Ventolin Hfa) 200 Puff/8 Gm Aers, 2 PUFF INH QID PRN for SHORTNESS OF BREATH, #1 Hydroxyzine HCl (Hydroxyzine HCl) 50 Mg Tab, 50 MG PO Q6HP PRN for ANXIETY, #7 Loperamide HCl (Loperamide HCl) 2 Mg Tab, 2 MG PO PRN PRN for DIARRHEA, #4 Ondansetron HCl (Zofran) 4 Mg Tab, 4 MG PO PRN PRN for NAUSEA, #5 Ramelteon (Rozerem) 8 Mg Tab, 8 MG PO QHS PRN for insomnia, #7 Allergies Coded Allergies: Cephalexin (Verified Allergy, Unknown, 03/02/15) Abigail Heath Aug 16, 2016 11:24
== END 2016-08-16 11:39 | disposition home or self-care (01) | DRG 753 ==
LOC: M ED 15:28 → M ED INP 17:23 → M PSY 20:15
PROVIDERS: ADMIT Psychiatry & Neurology Psychiatry; ATTEND Psychiatry & Neurology Psychiatry
DX: F31.9 Bipolar disorder, unspecified (principal); J44.9 Chronic obstructive pulmonary disease, unspecified; I10 Essential (primary) hypertension; E11.9 Type 2 diabetes mellitus without complications; F19.94 Other psychoactive substance use, unspecified with psychoactive substance-induced mood disorder; F41.9 Anxiety disorder, unspecified; F43.10 Post-traumatic stress disorder, unspecified; F60.9 Personality disorder, unspecified; Z79.899 Other long term (current) drug therapy; Z88.8 Allergy status to other drugs, medicaments and biological substances; Z87.891 Personal history of nicotine dependence; E78.00 Pure hypercholesterolemia, unspecified

== ENCOUNTER → 2016-09-25 | Outpatient (CLI) | payer OTHER ==
[~2016-09-25] MED LIST changes: +ALBU17IN INH; +AMBI10TA PO; +BUPR150T3 PO; +BUPR300T34 PO; +CLON1TAB PO; +GABA800T PO; +GLIP5TAB8 PO; +HYDR12.55 PO; +HYDR25TAB PO; +HYDRO50TAB PO; +LISI-542 PO; +LOPE2TAB5 PO; +LOSA50TA20 PO; +METF10004 PO; +OLAN10TA2 PO; +OMEP40CA2 PO; +PIOG45TA4 PO; +PRAZ2CAP PO; +ROZE8TAB16 PO; +SIMV10TA2 PO; +TIZA4CAP3 PO; +TRAZ50TA11 PO; -TRAZ50TA4 PO; +WELLTAB40 PO; +ZOFR20TA PO; +ZYPR10TA PO
--- NOTE | 2016-10-09 00:39 | ECWPNPC ---
PATIENT NAME: HAYES PRICE : 1975 GENDER: FEMALE VISIT DATE: 09/25/2016 DISCHARGE DATE: 09/25/16 1519 VISIT LOCKED DATE TIME: PHYSICIAN: GLYNN RAYO RESOURCE: GLYNN RAYO REASON FOR APPOINTMENT 1. BACK PAIN HISTORY OF PRESENT ILLNESS HISTORY OF PRESENT ILLNESS: PAIN THE PATIENT DESCRIBES THE PAIN... 40 YEAR OLD FEMALE PATIENT WITH HISTORY OF CHRONIC BACK PAIN. PATIENT DESCRIBES THE PAIN ACHING, SHARP, STABBING, THROBBING, SHOOTING WITH THE PAIN COMING AND GOING AND A PAIN SCORE OF 8/10. PATIENT IS CURRENTLY USING CYMBALTA, TIZANIDINE AND GABAPENTIN TO AID IN PAIN RELIEF AND STATES THAT IT TAKES THE EDGE OFF BUT SHE STILL HAS CONSTANT PAIN. PATIENT STATES THAT ANY TYPE OF ACTIVITY INCREASES THE PAIN IN LOWER BACK. FALL RISK SCREENING: SCREENING :NO FALLS IN THE PAST YEAR CURRENT MEDICATIONS TAKING GLIPIZIDE 5 MG TABLET 1 TABLET ORALLY ONCE A DAY TAKING HYDROCHLOROTHIAZIDE 25 25 MG TABLET 1 TAB ORAL DAILY TAKING MINIPRESS 1 MG CAPSULE 1 CAPSULE AT BEDTIME ORALLY ONCE A DAY TAKING DEPO-PROVERA 150 MG/ML SUSPENSION 1 ML INTRAMUSCULAR TAKING ACTOS 45 MG TABLET 1 TABLET ORALLY ONCE A DAY TAKING LOSARTAN POTASSIUM 50 MG TABLET 1 TABLET ORALLY BEFORE BEDTIME DISCONTINUED CYMBALTA 30 MG CAPSULE DELAYED RELEASE PARTICLES 1 CAPSULE ORALLY WITH FOOD ONCE A DAY FOR PAIN DISCONTINUED TIZANIDINE HCL 4 MG TABLET 1 TABLET NEEDED ORALLY THREE TIMES A DAY PRN FOR SPASMS AND PAIN MDD3 DISCONTINUED METFORMIN HCL 500 MG TABLET 1 TABLET WITH MEALS ORALLY TWICE A DAY DISCONTINUED LISINOPRIL 5 MG TABLET 1 TABLET ORALLY ONCE A DAY DISCONTINUED GABAPENTIN 800 MG TABLET 1 TABLET ORALLY FOUR TIMES DAILY MEDICATION LIST REVIEWED AND RECONCILED WITH THE PATIENT PAST MEDICAL HISTORY DIABETES HTN DDD LUMBAR MIGRAINE STAGE 3 KIDNEY DISEASE ALLERGIES KEFLEX: COLITIS HAY FEVER, CAT DANDER, DUST MITES, POLLEN: CONGESTION: ALLERGY REVIEW OF SYSTEMS REVIEWED BY: PROVIDER: GLYNN RAYO MD . CONSTITUTIONAL: ANY CHANGE IN YOUR MEDICAL CONDITION? NO . CHILLS NO . FEVER NO . INFECTION: DO YOU HAVE NEW INFECTIONS? NO . DO YOU HAVE HISTORY OF MRSA? NO . MUSCULOSKELETAL: ANY NEW PATTERNS OF PAIN OR NUMBNESS? YES, NUMBNESS IN HANDS AND FEET MORE SEVERE AND SHARP PAIN DOWN LEFT LEG . GASTROENTEROLOGY: ANY NEW CHANGE IN BOWEL CONTROL? NO . GENITOURINARY: ANY NEW CHANGE IN BLADDER CONTROL? NO . IS THERE A CHANCE YOU COULD BE ? NO . HEMATOLOGY/LYMPH: DO YOU TAKE ANY BLOOD THINNERS? (FOR EXAMPLE- COUMADIN, PLAVIX, AGGRENOX, PLATEL, PRADAXA, OR XARELTO) NO . WHEN WAS YOUR LAST DOSE? DATE: TIME: . NEUROLOGY: HAVE YOU FALLEN IN THE PAST 6 MONTHS? NO . ANY NEW EXTREMITY NUMBNESS OR WEAKNESS? NO . CARDIOLOGY: DO YOU HAVE A PACEMAKER OR DEFIBRILLATOR? NO . RESPIRATORY: HAVE YOU BEEN SICK IN THE PAST WEEK? NO . FEVER NO . FLU LIKE SYMPTOMS? NO . COUGH NO . INTEGUMENTARY: DO YOU HAVE ANY RASHES OR OPEN SORES? NO . ALLERGIC/IMMUNO: ARE YOU ALLERGIC TO SHELLFISH OR IV DYE? NO . ANY NEW ALLERGIES? NO . PSYCHIATRIC: DO YOU HAVE THOUGHTS OF HURTING YOURSELF OR SOMEONE ELSE? NO . ARE YOU ABUSED, NEGLECTED, OR IN AN UNSAFE ENVIRONMENT? NO . ENDOCRINOLOGY: ARE YOU DIABETIC? YES . OTHER: DO YOU NEED ANY PRESCRIPTIONS? NO . IF YES, PLEASE LIST: ____ . ANY NEW PROBLEMS WITH YOUR MEDICATIONS? NO . WHEN DID YOU LAST EAT? ____ . WHEN DID YOU LAST DRINK? ____ . WHAT DID YOU LAST DRINK? ____ . NAME OF PERSON DRIVING YOU HOME? ____ . DO YOU HAVE ANY OTHER QUESTIONS OR CONCERNS SOMETHING FOR THE PAIN . VITAL SIGNS WT 240 LBS, HT 65", BMI 39.93 INDEX, BP 131/80 MM HG, HR 80 /MIN, RR 18 /MIN, TEMP 97.1 F, OXYGEN SAT % 98%, NA INITIALS SC 13:34, REVIEWED BY: AD. EXAMINATION : PATIENT IS ALERT O X 3 AND COOPERATIVE. TENDERNESS IN THE LOWER BACK AND PARASPINAL MUSCLE GROUP. TENDERNESS IN THE CERVICAL AREA AND PARASPINAL MUSCLE GROUP. LIMPING FROM LEFT LEG. USES CANE TO AMBULATE. BOTH LEGS ARE VERY WEAK AT EXTENSION AND FLEXION. BANDS OF TISSUE, RESTRICTION OF MOVEMENT AND PRESENCE OF TRIGGERS POINTS IN THE LOWER BACK AND CERVICAL AREA. MRI OF THE LUMBAR SPINE DONE ON 09/12/16 SHOWS NARROWING THE L4-L5 AND L5-S1 FACET JOINTS. ASSESSMENTS MYALGIA - M79.1 (PRIMARY) SPONDYLOSIS WITHOUT MYELOPATHY OR RADICULOPATHY, LUMBAR REGION - M47.816 TREATMENT MYALGIA NOTES: WE DISCUSSED SEVERAL ISSUES WITH MRS. PRICE'S PAIN MANAGEMENT CASE. AT THIS TIME THE PATIENT WILL CONTINUE WITH THE SAME MEDICATION BEFORE. I WOULD LIKE THE PATIENT TO START USING GABAPENTIN FOR THE NEUROPATHIC PAIN, HOWEVER, I WOULD LIKE THE PATIENT TO SPEAK WITH DR. BENSON ABOUT THE MEDICATION PRIOR TO TAKING IT. PATIENT ALSO WILL HAVE THE OPTION OF USING TIZANIDINE AGAIN 5 HOURS AFTER INITIAL CONSUMPTION IF THE PATIENT IS STILL PRESENT. DUE TO THE SPASTICITY AND BANDS OF TISSUE I WOULD LIKE TO MOVE FORWARD WITH TRIGGER POINT INJECTION. WE DISCUSSED THE RISK, BENENFITS, AND ALTNERATIVES OF THE INJECTION AND THE PATIENT WOULD LIKE TO PROCEED AT THIS TIME. INSTRUCTIONS WERE GIVEN, QUESTIONS WERE ANSWERED, PATIENT REPORTS UNDERSTANDING AND AGREES WITH THE PLAN. I, GREGOR PETTIT, DOCUMENTED THE ABOVE INFORMATION ACTING A SCRIBE FOR DR. RAYO. I HAVE REVIEWED THE ABOVE DOCUMENT, WRITTEN BY GREGOR MOE AND I VERIFY THAT IT IS ACCURATE. OTHERS START GABAPENTIN CAPSULE, 100 MG, DIRECTED, ORALLY FOR PAIN, THREE TIMES DAILY MDD3, 30 DAY(S), 90, REFILLS 1 NOTES: TRIGGER POINT INJECTION: YOUR EXPERIENCE MATERIAL WAS PRINTED,TRIGGER POINT INJECTION MATERIAL WAS PRINTED. PREVENTIVE MEDICINE PAIN CLINIC TEACHING: MEDICATIONS PRINTED INFORMATION ON GABAPENTIN GIVEN TO AND REVIEWED WITH PT. AND SHE VERBALIZED UNDERSTANDING. PT IS TO CK WITH DR. BENSON REGARDING IF SHE IS ABLE TO TAKE THIS, TIZANIDINE AND CYMBALTA WITH HER STAGE OF KIDNEY DISEASE. SHE SEES HIM 09/26/16. AD. PROCEDURE TEACHING PRINTED INFORMATION ON TPI GIVEN TO AND REVIEWED WITH PT. ALONG WITH PRE-PROCEDURE INSTRUCTIONS AND PT. VERBALIZED UNDERSTANDING. AD . PROCEDURE CODES FA211 ESTABILISHED PATIENT [facility] FACILITY CHARGE G8427 DOC MEDS VERIFIED W/PT OR RE G8730 PAIN ASSESS POS TOOL F/U PLAN DOC DISPOSITION & COMMUNICATION FOLLOW UP TPI AFTER APPROVAL ELECTRONICALLY SIGNED BY GLYNN RAYO MD ON 10/08/2016 AT 05:46 PM EDT DISCLAIMER : THIS IS A VISIT SUMMARY EXTRACTED FROM THE [facility] CHART. IT IS NOT A COPY OF THE [facility] PROGRESS NOTE. MTDD
== END | disposition home or self-care (01) ==
LOC: M PAIN 13:00
PROVIDERS: ATTEND Anesthesiology
DX: G89.29 Other chronic pain (principal); M79.1 Myalgia; M47.816 Spondylosis without myelopathy or radiculopathy, lumbar region; E11.9 Type 2 diabetes mellitus without complications; I12.9 Hypertensive chronic kidney disease with stage 1 through stage 4 chronic kidney disease, or unspecified chronic kidney disease; M51.36 Other intervertebral disc degeneration, lumbar region; G43.909 Migraine, unspecified, not intractable, without status migrainosus; N18.3 Chronic kidney disease, stage 3 (moderate); Z79.899 Other long term (current) drug therapy; Z79.3 Long term (current) use of hormonal contraceptives; Z88.1 Allergy status to other antibiotic agents; J30.1 Allergic rhinitis due to pollen

== ENCOUNTER → 2016-09-26 | Outpatient (REF) | payer OTHER | LOC: M LAB REF 17:14 | PROVIDERS: ATTEND Internal Medicine Nephrology | DX: N18.3 Chronic kidney disease, stage 3 (moderate) (principal); E11.22 Type 2 diabetes mellitus with diabetic chronic kidney disease ==

== ENCOUNTER → 2017-03-26 | Outpatient (REF) | payer OTHER ==
[2017-03-26 17:46] LABS: HEMATOCRIT 37.6 % (36.0-47.0); HEMOGLOBIN 12.4 g/dl (12.0-16.0); MEAN CORPUSCULAR HEMOGLOBIN 29.9 pg (27.0-33.0); MEAN CORPUSCULAR VOLUME 90.6 fl (80.0-96.0); PLATELET COUNT, AUTOMATED 591 10^3/uL (150-450); RED BLOOD COUNT 4.15 10^6/uL (4.00-5.40); RED CELL DISTRIBUTION WIDTH 15.9 % (11.5-14.5); WHITE BLOOD COUNT 11.6 10^3/uL (4.0-10.0)
[2017-03-26 18:07] LABS: ALBUMIN 3.6 GM/DL (3.2-5.2); ALBUMIN/GLOBULIN RATIO 1.16 (1.00-1.93); ALKALINE PHOSPHATASE 85 U/L (45-117); ALT/SGPT 40 U/L (12-78); ANION GAP 7 MEQ/L (8-16); AST/SGOT 18 U/L (7-37); BILIRUBIN,TOTAL 0.6 MG/DL (0.2-1.0); BLOOD UREA NITROGEN 11 MG/DL (7-18); CALCIUM LEVEL 8.5 MG/DL (8.5-10.1); CARBON DIOXIDE LEVEL 25 MEQ/L (21-32); CHLORIDE LEVEL 109 MEQ/L (98-107); CHOLESTEROL LEVEL 200 MG/DL (<200); CHOLESTEROL RISK RATIO 4.878 (<5); CREATININE FOR GFR 0.72 MG/DL (0.55-1.30); GLOMERULAR FILTRATION RATE > 60.0 (>60); GLUCOSE, FASTING 92 MG/DL (70-100); HDL CHOLESTEROL 41 MG/DL (>40); LDL CHOLESTEROL 139.8 MG/DL (<100); NON-HDL-C 159 MG/DL; POTASSIUM SERUM 3.9 MEQ/L (3.5-5.1); SODIUM LEVEL 141 MEQ/L (136-145); TOTAL PROTEIN 6.7 GM/DL (6.4-8.2); TRIGLYCERIDES LEVEL 96 MG/DL (<150)
[2017-03-26 18:26] LABS: ESTIMATED AVERAGE GLUCOSE 114 MG/DL (60-110); HEMOGLOBIN A1c 5.6 %
[2017-03-26 18:30] LABS: MALB URINE SIEMENS 5.9 MG/L; MAU/CREAT RATIO 4.7 MCG/MG (0.0-30.0)
== END ==
LOC: M SFHCLERA 10:34
DX: E11.9 Type 2 diabetes mellitus without complications (principal)

== ENCOUNTER → 2017-04-16 | Outpatient (REF) | payer OTHER ==
[2017-04-16 21:33] LABS: BASO # 0.1 10^3/uL (0.0-0.2); BASO % 0.7 % (0.0-1.0); EOS # 0.3 10^3/uL (0.0-0.50); EOS % 1.9 % (0.0-3.0); HEMATOCRIT 37.9 % (36.0-47.0); HEMOGLOBIN 12.5 g/dl (12.0-16.0); IMMATURE GRANULOCYTE % 0.3 % (0-3.0); LYMPH # 4.5 10^3/uL (1.5-4.5); MEAN CORPUSCULAR HEMOGLOBIN 29.8 pg (27.0-33.0); MEAN CORPUSCULAR VOLUME 90.5 fl (80.0-96.0); MONO # 1.1 10^3/uL (0.0-0.8); MONO % 6.8 % (0.0-5.0); NEUTROPHILS # 9.5 10^3/uL (1.8-7.7); NEUTROPHILS % 61.3 % (36.0-66.0); PLATELET COUNT, AUTOMATED 614 10^3/uL (150-450); RED BLOOD COUNT 4.19 10^6/uL (4.00-5.40); RED CELL DISTRIBUTION WIDTH 14.8 % (11.5-14.5); WHITE BLOOD COUNT 15.5 10^3/uL (4.0-10.0)
[2017-04-16 21:36] LABS: REASON FOR REVIEW OTHER; SLIDE REVIEW Report; SOURCE PERIPHERAL SMEAR
== END ==
LOC: M SFHCLERA 17:01
DX: D72.829 Elevated white blood cell count, unspecified (principal)

== ENCOUNTER → 2017-05-21 | Outpatient (REF) | payer OTHER | LOC: M SFHCLERA 14:43 | DX: D72.829 Elevated white blood cell count, unspecified (principal); Z53.9 Procedure and treatment not carried out, unspecified reason ==

== ENCOUNTER → 2017-06-06 | Outpatient (CLI) | payer OTHER | LOC: M LRY 14:27 | DX: R42 Dizziness and giddiness (principal) ==

== ENCOUNTER → 2017-06-06 | Outpatient (CLI) | payer OTHER | LOC: M LRY 14:02 | DX: R42 Dizziness and giddiness (principal); M17.11 Unilateral primary osteoarthritis, right knee; M25.461 Effusion, right knee | CPT/HCPCS: 71046 ==

== ENCOUNTER → 2017-06-24 | Outpatient (REF) | payer OTHER | LOC: M SFHCLERA 16:02 | DX: D47.3 Essential (hemorrhagic) thrombocythemia (principal); M17.11 Unilateral primary osteoarthritis, right knee; R82.99 Other abnormal findings in urine ==

== ENCOUNTER 2017-07-10 12:19 | Emergency (ER) | payer OTHER ==
[2017-07-10] MEDS: NORCO, ANEXSIA 5/325MG TABLET (HYDROcodone/ACETAMINOPHEN) PO (16:34)
== END 2017-07-10 16:44 | disposition home or self-care (01) ==
LOC: M ED 12:19
DX: S30.0XXA Contusion of lower back and pelvis, initial encounter (principal); S83.91XA Sprain of unspecified site of right knee, initial encounter; M54.5 Low back pain; G89.29 Other chronic pain; W20.8XXA Other cause of strike by thrown, projected or falling object, initial encounter; Y92.009 Unspecified place in unspecified non-institutional (private) residence as the place of occurrence of the external cause; Y93.89 Activity, other specified; E11.9 Type 2 diabetes mellitus without complications; I10 Essential (primary) hypertension; J44.9 Chronic obstructive pulmonary disease, unspecified; K21.9 Gastro-esophageal reflux disease without esophagitis; F17.210 Nicotine dependence, cigarettes, uncomplicated; Z88.1 Allergy status to other antibiotic agents; Z79.899 Other long term (current) drug therapy
CPT/HCPCS: 73564

== ENCOUNTER → 2017-09-10 | Outpatient (CLI) | payer OTHER | LOC: M LRY 11:15 | DX: J44.9 Chronic obstructive pulmonary disease, unspecified (principal) ==

== ENCOUNTER 2017-09-30 21:39 | Emergency (ER) | payer OTHER ==
[2017-09-30] MEDS ORDERED: ACETAMINOPHEN 325 MG TAB PO (22:15)
== END 2017-09-30 22:42 | disposition left against medical advice (07) ==
LOC: M ED 21:39
DX: F91.9 Conduct disorder, unspecified (principal); F41.9 Anxiety disorder, unspecified; I10 Essential (primary) hypertension; J45.909 Unspecified asthma, uncomplicated; E78.5 Hyperlipidemia, unspecified; F17.210 Nicotine dependence, cigarettes, uncomplicated; Z79.899 Other long term (current) drug therapy; Z88.1 Allergy status to other antibiotic agents; Z88.6 Allergy status to analgesic agent
CPT/HCPCS: 99284

== ENCOUNTER 2017-09-30 22:43 | Emergency (ER) | payer OTHER | END 2017-10-01 00:25 | disposition left against medical advice (07) | LOC: M ED 22:43 | DX: S09.90XA Unspecified injury of head, initial encounter (principal); Z53.21 Procedure and treatment not carried out due to patient leaving prior to being seen by health care provider ==

== ENCOUNTER 2017-11-01 01:14 | Emergency (ER) | payer OTHER | END 2017-11-01 03:20 | disposition left against medical advice (07) | LOC: M ED 01:14 | DX: M79.609 Pain in unspecified limb (principal); Z53.21 Procedure and treatment not carried out due to patient leaving prior to being seen by health care provider ==

== ENCOUNTER 2017-11-29 14:52 | Emergency (ER) | payer OTHER ==
[2017-11-29] MEDS: NORCO, ANEXSIA 5/325MG TABLET (HYDROcodone/ACETAMINOPHEN) PO (15:21)
[2017-11-29] MEDS: IPRATROPIUM 0.5MG/ALBUTEROL 2.5MG INH SOL UD 3ML (DUONEB)(J7620) NEB (15:38)
[2017-11-29] MEDS: predniSONE 20 MG TAB PO (16:19)
[2017-11-29] MEDS: AZITHROMYCIN 250 MG TAB PO (16:19)
== END 2017-11-29 16:25 | disposition home or self-care (01) ==
LOC: M ED 14:52
DX: J20.9 Acute bronchitis, unspecified (principal); S30.0XXA Contusion of lower back and pelvis, initial encounter; S29.011A Strain of muscle and tendon of front wall of thorax, initial encounter; W18.2XXA Fall in (into) shower or empty bathtub, initial encounter; Y92.091 Bathroom in other non-institutional residence as the place of occurrence of the external cause; I10 Essential (primary) hypertension; E78.9 Disorder of lipoprotein metabolism, unspecified; K21.9 Gastro-esophageal reflux disease without esophagitis; E11.9 Type 2 diabetes mellitus without complications; M54.5 Low back pain; Z86.718 Personal history of other venous thrombosis and embolism; Z87.19 Personal history of other diseases of the digestive system
CPT/HCPCS: 71101

== ENCOUNTER 2017-12-11 13:01 | Emergency (ER) | payer OTHER ==
[2017-12-11] MEDS: methylPREDNISolone INJ 125 MG/2 ML VIAL (J2930) IV (15:50)
[2017-12-11] MEDS: NORCO, ANEXSIA 5/325MG TABLET (HYDROcodone/ACETAMINOPHEN) PO (15:51)
[2017-12-11] MEDS: NS 1,000 ML IV (15:54)
[2017-12-11] MEDS: ALBUTEROL SULFATE 2.5 MG/0.5 ML INH NEB SOLN NEB (16:26)
[2017-12-11] MEDS: MORPHINE 4 MG/ML 1ML VIAL/SYRINGE (J2270) IV (16:58)
== END 2017-12-11 18:10 | disposition home or self-care (01) ==
LOC: M ED 13:01
DX: J44.1 Chronic obstructive pulmonary disease with (acute) exacerbation (principal); M25.561 Pain in right knee; M17.11 Unilateral primary osteoarthritis, right knee; E11.9 Type 2 diabetes mellitus without complications; I10 Essential (primary) hypertension; E78.5 Hyperlipidemia, unspecified; K21.9 Gastro-esophageal reflux disease without esophagitis; F41.9 Anxiety disorder, unspecified; F32.9 Major depressive disorder, single episode, unspecified; F43.10 Post-traumatic stress disorder, unspecified; K80.20 Calculus of gallbladder without cholecystitis without obstruction; Z86.718 Personal history of other venous thrombosis and embolism; Z87.891 Personal history of nicotine dependence; Z79.899 Other long term (current) drug therapy; Z88.1 Allergy status to other antibiotic agents; Z88.6 Allergy status to analgesic agent
CPT/HCPCS: J2270

== ENCOUNTER 2017-12-16 19:05 | Emergency (ER) | payer OTHER ==
[2017-12-16] MEDS: IBUPROFEN 800 MG TAB PO (21:44)
[2017-12-16] MEDS ORDERED: ACETAMINOPHEN TAB 650MG DOSE (2X325MG) PO (23:00)
== END 2017-12-16 23:03 | disposition home or self-care (01) ==
LOC: M ED 19:05
DX: T14.8XXA Other injury of unspecified body region, initial encounter (principal); Y04.8XXA Assault by other bodily force, initial encounter; Y92.9 Unspecified place or not applicable; Y93.9 Activity, unspecified; Y99.9 Unspecified external cause status; F99 Mental disorder, not otherwise specified; Z72.0 Tobacco use; Z79.899 Other long term (current) drug therapy; Z88.8 Allergy status to other drugs, medicaments and biological substances
CPT/HCPCS: 70450

== ENCOUNTER → 2018-01-30 | Outpatient (REF) | payer OTHER ==
[2018-01-30 20:41] LABS: ANION GAP 12 MEQ/L (8-16); BLOOD UREA NITROGEN 7 MG/DL (7-18); CALCIUM LEVEL 8.8 MG/DL (8.5-10.1); CARBON DIOXIDE LEVEL 21 MEQ/L (21-32); CHLORIDE LEVEL 106 MEQ/L (98-107); CREATININE FOR GFR 0.81 MG/DL (0.55-1.30); GLOMERULAR FILTRATION RATE > 60.0 (>58); GLUCOSE, FASTING 85 MG/DL (70-100); SODIUM LEVEL 139 MEQ/L (136-145)
[2018-01-30 20:44] LABS: BASO # 0.1 10^3/uL (0.0-0.2); BASO % 0.6 % (0.0-1.0); EOS # 0.2 10^3/uL (0.0-0.50); EOS % 1.7 % (0.0-3.0); HEMATOCRIT 40.3 % (36.0-47.0); HEMOGLOBIN 13.4 g/dl (12.0-15.5); IMMATURE GRANULOCYTE % 0.5 % (0-3.0); LYMPH % 36.7 % (24.0-44.0); MEAN CORPUSCULAR HEMOGLOBIN 31.6 pg (27.0-33.0); MEAN CORPUSCULAR HGB CONC 33.3 g/dl (32.0-36.5); MONO # 0.9 10^3/uL (0.0-0.8); MONO % 7.9 % (0.0-5.0); NEUTROPHILS # 5.7 10^3/uL (1.8-7.7); NEUTROPHILS % 52.6 % (36.0-66.0); PLATELET COUNT, AUTOMATED 513 10^3/uL (150-450); RED BLOOD COUNT 4.24 10^6/uL (4.00-5.40); RED CELL DISTRIBUTION WIDTH 14.2 % (11.5-14.5); WHITE BLOOD COUNT 10.8 10^3/uL (4.0-10.0)
== END ==
LOC: M SFHCLERA 16:33
DX: R23.8 Other skin changes (principal)
CPT/HCPCS: 80048

== ENCOUNTER 2018-02-10 16:13 | Emergency (ER) | payer OTHER ==
[~2018-02-10] VITALS: Ht 165.1 cm; Wt 100.0 kg
[~2018-02-10 16:13] MED LIST changes: -CLON1TAB PO; +CLON1TAB8 PO; +D-CA1KIT XX; +DOXY100C37; +IBUP-1022 PO; -LOSA50TA20 PO; +LOSA50TA73 PO; +NORCOTAB PO; +PIOG1TAB37 PO; +PIOG1TAB55 PO; -PIOG45TA4 PO; +PRED10TA2 PO; +PRED20TA PO; +ROBA100S5; +TESS100C PO; +TIZA2TA; +TIZA4CAP PO; -TIZA4CAP3 PO; +TRAZ-160 PO; -TRAZ50TA11 PO; +TYLE325T5 PO; +VENTAER INH; +ZITHTAB PO; -ZOFR20TA PO; +ZOFR4TAB16 PO
[2018-02-10] MEDS ORDERED: IBUP200T45 PO (16:28)
[2018-02-10] MEDS ORDERED: PRAZ1CAP (16:28)
[2018-02-10] MEDS ORDERED: HYDR-3363 OP (16:28)
[2018-02-10] MEDS ORDERED: LYRI75CA PO (16:28)
[2018-02-10] MEDS ORDERED: PIOG1TAB37 PO (16:28)
[2018-02-10] MEDS: METOCLOPRAMIDE 10 MG TAB PO ONE (17:32)
[2018-02-10] MEDS: NORCO, ANEXSIA 5/325MG TABLET (HYDROcodone/ACETAMINOPHEN) PO ONE (17:33)
--- NOTE | 2018-02-10 17:33 | REP ---
Clinical: Fall with loss of consciousness . Comparison: 12/16/2017 . Findings: The ventricles, sulci, and cisterns are normal in position and appearance. Melchor-white differentiation is maintained. No acute intracranial hemorrhage, mass/mass effect, pathology or trauma/injury. No evidence for acute infarction. No extra-axial fluid collection. Calvarium is intact. Paranasal sinuses and mastoid air cells are clear. Impression: Normal noncontrast head CT. No evidence for acute intracranial pathology or trauma/injury. Electronically Signed by Luis Antonio Guevara MD 02/10/2018 05:25 P
--- NOTE | 2018-02-10 17:35 | REP ---
Clinical: Trauma/fall with loss of consciousness. Comparison: 12/16/2017 . Technique: Axial noncontrast images from the skull base to the thoracic inlet with coronal and sagittal re-formations Findings: Normal alignment and lordosis is maintained. Cervical vertebral bodies including transverse processes and spinous processes are intact and there is no evidence for acute fracture / compression injury or subluxation. Stable degenerative changes include bridging osteophytes at C4-5 as well as minimal disc space narrowing at C5-6 and C6-7. Spinal canal is patent. Posterior elements are intact. Paravertebral soft tissues are normal. Impression: Mild stable degenerative changes. No evidence for acute pathology or trauma/injury. Electronically Signed by Luis Antonio Guevara MD 02/10/2018 05:27 P
--- NOTE | 2018-02-10 17:54 | REP ---
Clinical: Fall with tenderness. Technique: AP, lateral, bilateral oblique, and coned-down views of the lumbosacral spine. Findings: Alignment and lordosis maintained. No acute fracture / compression injury or subluxation. Mild age-related changes include endplate sclerosis and minimal hypertrophic facet changes at L4-5 and L5-S1 as well as minimal disc space narrowing at L5-L1. No spondylolysis or spondylolisthesis. Impression: Mild age-related changes to the lower lumbar spine. No acute fracture / compression injury or subluxation. Electronically Signed by Luis Antonio Guevara MD 02/10/2018 05:46 P
--- NOTE | 2018-02-10 17:56 | REP ---
Clinical: Trauma. Fall. Technique: AP, lateral, bilateral oblique views of the left ankle. Findings: Evidence for old open reduction and fixation is involving the medial and lateral malleoli. No acute fracture or dislocation. Small fracture fragments at the medial malleolus noted. Ankle mortise intact. Mild swelling. Impression: Mild swelling. Old injuries. No acute fracture dislocation. Electronically Signed by Luis Antonio Guevara MD 02/10/2018 05:48 P
[2018-02-10 18:51] VITALS: BP 98/63
== END 2018-02-10 18:53 | disposition home or self-care (01) ==
LOC: EDBD 16:13 → M ED 16:13
DX: S06.0X9A Concussion with loss of consciousness of unspecified duration, initial encounter (principal); M25.571 Pain in right ankle and joints of right foot; S30.0XXA Contusion of lower back and pelvis, initial encounter; S16.1XXA Strain of muscle, fascia and tendon at neck level, initial encounter; W18.00XA Striking against unspecified object with subsequent fall, initial encounter; Y92.009 Unspecified place in unspecified non-institutional (private) residence as the place of occurrence of the external cause; I10 Essential (primary) hypertension; E11.9 Type 2 diabetes mellitus without complications; J44.9 Chronic obstructive pulmonary disease, unspecified; Z79.84 Long term (current) use of oral hypoglycemic drugs

== ENCOUNTER 2018-03-12 23:06 | Emergency (ER) | payer OTHER ==
[~2018-03-12] VITALS: Ht 165.1 cm; Wt 95.0 kg
[~2018-03-12 23:06] MED LIST changes: -GABA800T PO; +GABA800T4 PO; +HYDR-3363 OP; +IBUP200T45 PO; -LOSA50TA73 PO; +LOSA50TA88 PO; +LYRI75CA PO; +PRAZ1CAP
[2018-03-12] MEDS ORDERED: MORPHINE 4 MG/ML 1ML VIAL/SYRINGE (J2270) IV ONE (23:30)
[2018-03-13 00:05] LABS: PROTHROMBIN TIME 13.3 SECONDS (12.1-14.4)
[2018-03-13 00:06] LABS: PARTIAL THROMBOPLASTIN TIME 25.9 SECONDS (25.4-37.6)
[2018-03-13 00:14] LABS: HEMATOCRIT 34.3 % (36.0-47.0); HEMOGLOBIN 11.4 g/dl (12.0-15.5); MEAN CORPUSCULAR HEMOGLOBIN 32.9 pg (27.0-33.0); MEAN CORPUSCULAR HGB CONC 33.2 g/dl (32.0-36.5); MEAN CORPUSCULAR VOLUME 99.1 fl (80.0-96.0); PLATELET COUNT, AUTOMATED 422 10^3/uL (150-450); RED BLOOD COUNT 3.46 10^6/uL (4.00-5.40); WHITE BLOOD COUNT 11.1 10^3/uL (4.0-10.0)
[2018-03-13 00:30] LABS: ACETAMINOPHEN LEVEL < 2.0 UG/ML (10.0-30.0); ALT/SGPT 123 U/L (12-78); BILIRUBIN,DIRECT 0.1 MG/DL (0.0-0.2); BILIRUBIN,TOTAL 0.2 MG/DL (0.2-1.0); BLOOD UREA NITROGEN 17 MG/DL (7-18); CALCIUM LEVEL 7.7 MG/DL (8.5-10.1); CARBON DIOXIDE LEVEL 20 MEQ/L (21-32); CHLORIDE LEVEL 112 MEQ/L (98-107); CPK CREATINE PHOSPHOKINASE 122 U/L (26-192); CREATININE FOR GFR 0.83 MG/DL (0.55-1.30); ETHYL ALCOHOL (ETHANOL) 0.211 % (0.000-0.010); FREE T4 1.01 NG/DL (0.76-1.46); GLOMERULAR FILTRATION RATE > 60.0 (>58); GLUCOSE, FASTING 91 MG/DL (70-100); LIPASE 133 U/L (73-393); MB/CK RELATIVE INDEX 1.39 (< OR =4); POTASSIUM SERUM 4.1 MEQ/L (3.5-5.1); SALICYLATE LEVEL 2.3 MG/DL (5.0-30.0); SODIUM LEVEL 142 MEQ/L (136-145); THYROID STIMULATING HORMONE 0.986 uIU/ML (0.358-3.740); TOTAL PROTEIN 6.3 GM/DL (6.4-8.2); TROPONIN I < 0.02 NG/ML (< 0.10)
[2018-03-13] MEDS ORDERED: NS 1,000 ML IV SCH (00:38)
--- NOTE | 2018-03-13 00:47 | REPVR ---
EXAM: CT Chest Without Contrast EXAM DATE/TIME: 03/13/2018 12:00 AM CLINICAL HISTORY: 42 years old, female; Injury or trauma; Fall; Initial encounter; Blunt trauma (contusions or hematomas) TECHNIQUE: Axial computed tomography images of the chest without intravenous contrast. All CT scans at this facility use at least one of these dose optimization techniques: automated exposure control; mA and/or kV adjustment per patient size (includes targeted exams where dose is matched to clinical indication); or iterative reconstruction. Coronal and sagittal reformatted images were created and reviewed. MIP reconstructed images were created and reviewed. COMPARISON: CR Chest, 2 view PA, Lat 12/11/2017 1:42 PM FINDINGS: Limited trauma evaluation without IV contrast. No mediastinal hematoma. No abnormal dilatation of the thoracic aorta. No hemothorax or pneumothorax. Small, nonspecific mediastinal nodes are present. No evidence of lung contusion, aspiration or concerning lung mass. No acute displaced fractures involving ribs, thoracic spine or shoulder girdle. Remote, healed right third and fourth rib fractures. Possible 15 mm left thyroid nodule incompletely imaged. IMPRESSION: No CT evidence of acute thoracic trauma Electronically signed by: Randy Peng On 03/13/2018 00:46:45 AM
--- NOTE | 2018-03-13 00:47 | REPVR ---
EXAM: CT Thoracic Spine Without Contrast EXAM DATE/TIME: 03/13/2018 12:00 AM CLINICAL HISTORY: 42 years old, female; Injury or trauma; Fall; Initial encounter; Blunt trauma (contusions or hematomas) TECHNIQUE: Axial computed tomography images of the thoracic spine without intravenous contrast. All CT scans at this facility use at least one of these dose optimization techniques: automated exposure control; mA and/or kV adjustment per patient size (includes targeted exams where dose is matched to clinical indication); or iterative reconstruction. Coronal and sagittal reformatted images were created and reviewed. COMPARISON: CT Spine,thoracic w/o contrast 12/16/2017 9:32 PM FINDINGS: No segmental malalignment of the vertebral bodies. Vertebral body height is maintained. No fracture or destructive process. Intervertebral disc height is maintained, appropriate for age. No paraspinous soft tissue mass or focal soft tissue edema. IMPRESSION: No fracture or other acute abnormality involving the thoracic spine. Electronically signed by: Randy Peng On 03/13/2018 00:47:50 AM
--- NOTE | 2018-03-13 00:52 | REPVR ---
EXAM: CT Lumbar Spine Without Contrast EXAM DATE/TIME: 03/13/2018 12:00 AM CLINICAL HISTORY: 42 years old, female; Injury or trauma; Fall; Initial encounter; Blunt trauma (contusions or hematomas) TECHNIQUE: Axial computed tomography images of the lumbar spine without intravenous contrast. All CT scans at this facility use at least one of these dose optimization techniques: automated exposure control; mA and/or kV adjustment per patient size (includes targeted exams where dose is matched to clinical indication); or iterative reconstruction. Coronal and sagittal reformatted images were created and reviewed. COMPARISON: CR Spine. Lumbosacral, complete 02/10/2018 5:26 PM FINDINGS: No segmental lumbar vertebral malalignment. Vertebral body height and morphology is maintained. No acute fracture or destructive process. Intervertebral disc height is maintained for age. Hypertrophic facet arthropathy especially L4-5 on the right and milder at L5-S1. Disc bulge L4-5 is also present No dilatation of the imaged distal abdominal aorta. No significant abnormality of the imaged retroperitoneum. IMPRESSION: No fracture or other acute abnormality involving the lumbar spine. Degenerative disc and facet arthropathy, particularly at L4-5 Electronically signed by: Randy Peng On 03/13/2018 00:51:43 AM
[2018-03-13 00:53] LABS: BASOPHILS 2 % (0-4); EOSINOPHILS 2 % (0-5); LYMPHOCYTES 49 % (16-52); MONOCYTES 6 % (0-8); NEUTROPHILS 41 % (35-75); PLATELET ESTIMATE NORMAL (NORMAL)
[2018-03-13 00:54] LABS: ANISOCYTOSIS 1+
[2018-03-13 04:52] VITALS: BP 94/60
[2018-03-13] MEDS ORDERED: ACETAMINOPHEN TAB 650MG DOSE (2X325MG) PO ONE (05:15)
--- NOTE | 2018-03-14 10:27 | ECGEPIP ---
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
== END 2018-03-13 06:34 | disposition home or self-care (01) ==
LOC: M ED 23:06 → EDBD 23:06 → M ED 03-13 06:34
DX: M54.9 Dorsalgia, unspecified (principal); F32.9 Major depressive disorder, single episode, unspecified; F10.129 Alcohol abuse with intoxication, unspecified; I12.9 Hypertensive chronic kidney disease with stage 1 through stage 4 chronic kidney disease, or unspecified chronic kidney disease; N18.9 Chronic kidney disease, unspecified; E11.22 Type 2 diabetes mellitus with diabetic chronic kidney disease; J44.9 Chronic obstructive pulmonary disease, unspecified; G43.909 Migraine, unspecified, not intractable, without status migrainosus; F17.210 Nicotine dependence, cigarettes, uncomplicated
CPT/HCPCS: 71250; 72128; 72131; 80048; 80076; 82550; 82553; 83690; 84439; 84443; 85025; 85610; 85730; 93005; 93041; 94760; 96374; 99285; G0480

== ENCOUNTER → 2018-03-19 | Outpatient (REF) | payer OTHER | LOC: M SFHCLERA 13:46 | PROVIDERS: ATTEND Family Medicine | DX: R10.13 Epigastric pain (principal); Z30.09 Encounter for other general counseling and advice on contraception ==

== ENCOUNTER → 2018-04-07 | Outpatient (REF) | payer OTHER ==
[2018-04-07 19:58] LABS: BLOOD UREA NITROGEN 12 MG/DL (7-18); CALCIUM LEVEL 8.5 MG/DL (8.5-10.1); CARBON DIOXIDE LEVEL 20 MEQ/L (21-32); CHLORIDE LEVEL 108 MEQ/L (98-107); CREATININE FOR GFR 0.77 MG/DL (0.55-1.30); GLOMERULAR FILTRATION RATE > 60.0 (>58); GLUCOSE, FASTING 67 MG/DL (70-100); POTASSIUM SERUM 4.1 MEQ/L (3.5-5.1); SODIUM LEVEL 138 MEQ/L (136-145)
[2018-04-07 19:59] LABS: BASO # 0.1 10^3/uL (0.0-0.2); BASO % 0.7 % (0.0-1.0); EOS # 0.2 10^3/uL (0.0-0.50); EOS % 1.5 % (0.0-3.0); HEMATOCRIT 38.9 % (36.0-47.0); HEMOGLOBIN 12.6 g/dl (12.0-15.5); LYMPH # 3.4 10^3/uL (1.5-4.5); LYMPH % 30.9 % (24.0-44.0); MEAN CORPUSCULAR HEMOGLOBIN 33.2 pg (27.0-33.0); MEAN CORPUSCULAR HGB CONC 32.4 g/dl (32.0-36.5); MEAN CORPUSCULAR VOLUME 102.4 fl (80.0-96.0); MONO # 0.9 10^3/uL (0.0-0.8); MONO % 8.2 % (0.0-5.0); NEUTROPHILS # 6.5 10^3/uL (1.8-7.7); NEUTROPHILS % 58.3 % (36.0-66.0); PLATELET COUNT, AUTOMATED 479 10^3/uL (150-450); WHITE BLOOD COUNT 11.1 10^3/uL (4.0-10.0)
[2018-04-10 00:06] LABS: ANA (HEP2) Negative (.)
== END ==
LOC: M SFHCLERA 15:44
PROVIDERS: ATTEND Nurse Practitioner Family
DX: R58 Hemorrhage, not elsewhere classified (principal)

== ENCOUNTER → 2018-04-29 | Outpatient (REF) | payer OTHER ==
[2018-04-29 13:50] LABS: CHOLESTEROL RISK RATIO 3.134 (<5)
[2018-04-29 14:29] LABS: MALB URINE SIEMENS 7.6 MG/L; MAU/CREAT RATIO 4.3 MCG/MG (0.0-30.0)
[2018-04-29 14:55] LABS: HEMOGLOBIN A1c 4.9 %
== END ==
LOC: M SFHCLERA 10:31
PROVIDERS: ATTEND Family Medicine
DX: E11.9 Type 2 diabetes mellitus without complications (principal); E78.5 Hyperlipidemia, unspecified

== ENCOUNTER → 2018-08-06 | Outpatient (REF) | payer OTHER ==
[~2018-08-06] MED LIST changes: +HYDR-3715 PO; -NORCOTAB PO; -TRAZ-160 PO; +TRAZ-252 PO
[2018-08-06 17:18] LABS: ALBUMIN 3.3 GM/DL (3.2-5.2); BILIRUBIN,DIRECT 0.1 MG/DL (0.0-0.2); BILIRUBIN,TOTAL 0.4 MG/DL (0.2-1.0); TOTAL PROTEIN 7.2 GM/DL (6.4-8.2)
[2018-08-06 17:34] LABS: BASO # 0.1 10^3/uL (0.0-0.2); BASO % 0.8 % (0.0-1.0); EOS # 0.3 10^3/uL (0.0-0.50); EOS % 1.6 % (0.0-3.0); HEMATOCRIT 39.9 % (36.0-47.0); HEMOGLOBIN 12.8 g/dl (12.0-15.5); LYMPH # 3.9 10^3/uL (1.5-4.5); LYMPH % 25.5 % (24.0-44.0); MEAN CORPUSCULAR HEMOGLOBIN 33.8 pg (27.0-33.0); MEAN CORPUSCULAR HGB CONC 32.1 g/dl (32.0-36.5); MEAN CORPUSCULAR VOLUME 105.3 fl (80.0-96.0); MONO # 1.2 10^3/uL (0.0-0.8); MONO % 7.9 % (0.0-5.0); NEUTROPHILS # 9.8 10^3/uL (1.8-7.7); NEUTROPHILS % 63.7 % (36.0-66.0); PLATELET COUNT, AUTOMATED 524 10^3/uL (150-450); RED BLOOD COUNT 3.79 10^6/uL (4.00-5.40); WHITE BLOOD COUNT 15.3 10^3/uL (4.0-10.0)
== END ==
LOC: M SFHCLERA 10:55
PROVIDERS: ATTEND Family Medicine
DX: R94.5 Abnormal results of liver function studies (principal); D72.829 Elevated white blood cell count, unspecified

== ENCOUNTER → 2018-09-16 | Outpatient (REF) | payer OTHER ==
[2018-09-16 20:27] LABS: HEMATOCRIT 40.2 % (36.0-47.0); HEMOGLOBIN 13.1 g/dl (12.0-15.5); MEAN CORPUSCULAR HEMOGLOBIN 33.9 pg (27.0-33.0); MEAN CORPUSCULAR HGB CONC 32.6 g/dl (32.0-36.5); MEAN CORPUSCULAR VOLUME 103.9 fl (80.0-96.0); PLATELET COUNT, AUTOMATED 529 10^3/uL (150-450); RED BLOOD COUNT 3.87 10^6/uL (4.00-5.40); WHITE BLOOD COUNT 16.2 10^3/uL (4.0-10.0)
[2018-09-16 20:44] LABS: HEMOGLOBIN A1c 6.1 %
[2018-09-16 20:55] LABS: LYMPHOCYTES 27 % (16-52); MONOCYTES 5 % (0-8); NEUTROPHILS 68 % (35-75)
[2018-09-16 20:57] LABS: PLATELET ESTIMATE INCREASED (NORMAL)
== END ==
LOC: M SFHCLERA 17:00
PROVIDERS: ATTEND Family Medicine
DX: Z86.39 Personal history of other endocrine, nutritional and metabolic disease (principal); D72.829 Elevated white blood cell count, unspecified

== ENCOUNTER 2019-10-24 22:06 | Emergency (ER) | payer OTHER ==
[~2019-10-24] VITALS: Ht 165.1 cm; Wt 109.0 kg
[~2019-10-24 22:06] MED LIST changes: -BUPR300T34 PO; +BUPR300T92 PO; +GUAI100L12; +HYDR1TAB33 PO; -HYDRO50TAB PO; -OMEP40CA2 PO; +OMEP40CA97 PO; -ROBA100S5; -SIMV10TA2 PO; +SIMV10TA21 PO
[2019-10-24 22:28] VITALS: BP 142/79
[2019-10-25 00:23] LABS: HEMATOCRIT 39.3 % (36.0-47.0); HEMOGLOBIN 13.1 g/dl (12.0-15.5); MEAN CORPUSCULAR HEMOGLOBIN 34.9 pg (27.0-33.0); MEAN CORPUSCULAR HGB CONC 33.3 g/dl (32.0-36.5); MEAN CORPUSCULAR VOLUME 104.8 fl (80.0-96.0); PLATELET COUNT, AUTOMATED 514 10^3/uL (150-450); RED BLOOD COUNT 3.75 10^6/uL (4.00-5.40); WHITE BLOOD COUNT 11.8 10^3/uL (4.0-10.0)
[2019-10-25] MEDS ORDERED: ACETAMINOPHEN 500 MG TAB PO ONE (00:30)
[2019-10-25 00:41] LABS: BLOOD UREA NITROGEN 7 MG/DL (7-18); CALCIUM LEVEL 9.3 MG/DL (8.5-10.1); CARBON DIOXIDE LEVEL 26 MEQ/L (21-32); CHLORIDE LEVEL 107 MEQ/L (98-107); CPK CREATINE PHOSPHOKINASE 170 U/L (26-192); CREATININE FOR GFR 0.75 MG/DL (0.55-1.30); GLOMERULAR FILTRATION RATE > 60.0 (>58); GLUCOSE, FASTING 192 MG/DL (70-100); MB/CK RELATIVE INDEX 1.18 (< OR =4); POTASSIUM SERUM 4.2 MEQ/L (3.5-5.1); SODIUM LEVEL 140 MEQ/L (136-145); TROPONIN I < 0.02 NG/ML (< 0.10)
[2019-10-25 00:54] LABS: ATYPICAL LYMPH 2 % (0-5); BASOPHILS 2 % (0-1); EOSINOPHILS 3 % (0-3); LYMPHOCYTES 33 % (16-44); MONOCYTES 3 % (0-5); NEUTROPHILS 57 % (28-66); PLATELET ESTIMATE INCREASED (NORMAL)
[2019-10-25 00:55] LABS: ABG BASE EXCESS -2.8 (-2.0-2.0); ABG HCO3 22.7 MEQ/L (22.0-26.0); ABG O2 SATURATION 95.8 % (95.0-99.0); ABG STANDARD HCO3 22.1 MEQ/L (22.0-26.0); ABG pH (ARTERIAL) 7.351 UNITS (7.350-7.450)
[2019-10-25 00:57] LABS: HCG, SERUM QUALITATIVE NEGATIVE (NEGATIVE)
[2019-10-25] MEDS ORDERED: ISOVUE-370 76% 100ML VIAL As Ordered ONE (01:26)
--- NOTE | 2019-10-25 01:40 | REPVR ---
PROCEDURE INFORMATION: Exam: XR Left Ankle Exam date and time: 10/25/2019 1:30 AM Age: 44 years old Clinical indication: Pain; Ankle; Left; Prior surgery; Surgery date: 6+ months TECHNIQUE: Imaging protocol: XR Left ankle. Views: 1 or 2 views. COMPARISON: CR Ankle, complete 02/10/2018 5:26 PM FINDINGS: Bones/joints: Status post open reduction internal fixation of healed bilateral malleolar fractures. Stable nonunion avulsion fragment is noted along the distal aspect of the medial malleolus. Ankle mortise is preserved. Soft tissues: Normal. IMPRESSION: No significant interval change Electronically signed by: Anmol Hanna On 10/25/2019 01:39:54 AM
[2019-10-25] MEDS ORDERED: traMADol 50 MG TAB (BULK 4 TAB ED) PO ONE (02:15)
--- NOTE | 2019-11-02 09:46 | ECGEPIP ---
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
== END 2019-10-25 02:17 | disposition home or self-care (01) ==
LOC: M ED 22:06
DX: M25.572 Pain in left ankle and joints of left foot (principal); G89.29 Other chronic pain; F41.1 Generalized anxiety disorder; R00.0 Tachycardia, unspecified; R06.02 Shortness of breath; I10 Essential (primary) hypertension; E11.9 Type 2 diabetes mellitus without complications; J45.909 Unspecified asthma, uncomplicated; F44.9 Dissociative and conversion disorder, unspecified; E66.9 Obesity, unspecified; Z68.41 Body mass index [BMI] 40.0-44.9, adult; F17.200 Nicotine dependence, unspecified, uncomplicated; Z88.1 Allergy status to other antibiotic agents; Z79.899 Other long term (current) drug therapy; Z79.3 Long term (current) use of hormonal contraceptives

== ENCOUNTER → 2020-04-20 | Outpatient (CLI) | payer OTHER ==
[~2020-04-20] MED LIST changes: +BUPR150T12 PO; -BUPR150T3 PO; +HYDR-3490 PO; -HYDR25TAB PO; -LISI-542 PO; +LISI-898 PO
[2020-04-20 15:44] LABS: HEMATOCRIT 39.9 % (36.0-47.0); HEMOGLOBIN 12.9 g/dl (12.0-15.5); MEAN CORPUSCULAR HGB CONC 32.3 g/dl (32.0-36.5); PLATELET COUNT, AUTOMATED 501 10^3/uL (150-450); RED BLOOD COUNT 4.03 10^6/uL (4.00-5.40)
[2020-04-20 16:11] LABS: ALBUMIN 3.7 GM/DL (3.2-5.2); ALT/SGPT 84 U/L (12-78); BILIRUBIN,TOTAL 0.4 MG/DL (0.2-1.0); BLOOD UREA NITROGEN 9 MG/DL (7-18); CALCIUM LEVEL 9.3 MG/DL (8.5-10.1); CARBON DIOXIDE LEVEL 21 MEQ/L (21-32); CHLORIDE LEVEL 105 MEQ/L (98-107); CREATININE FOR GFR 0.74 MG/DL (0.55-1.30); GLOMERULAR FILTRATION RATE > 60.0 (>58); GLUCOSE, FASTING 124 MG/DL (70-100); POTASSIUM SERUM 3.9 MEQ/L (3.5-5.1); SODIUM LEVEL 135 MEQ/L (136-145); TOTAL PROTEIN 7.5 GM/DL (6.4-8.2)
[2020-04-20 16:18] LABS: HEPATITIS B SURFACE ANTIBODY NEGATIVE (POSITIVE)
[2020-04-20 16:29] LABS: HEPATITIS B SURFACE ANTIGEN NEGATIVE (NEGATIVE)
[2020-04-20 16:57] LABS: HIV 1&2 SCREEN CENTAUR NEGATIVE (NEGATIVE)
== END ==
LOC: M LAB 14:17
PROVIDERS: ATTEND Internal Medicine Infectious Disease
DX: B18.2 Chronic viral hepatitis C (principal)

== ENCOUNTER 2020-08-10 17:55 | Emergency (ER) | payer OTHER ==
[~2020-08-10] VITALS: Ht 165.1 cm; Wt 100.0 kg
[~2020-08-10 17:55] MED LIST changes: -DOXY100C37; +DOXY1CAP62; +OMEP40CA4 PO; -OMEP40CA97 PO
[2020-08-10] MEDS ORDERED: NS 1,000 ML IV ONE (18:15)
[2020-08-10] MEDS ORDERED: LISI2.5T2 (18:32)
[2020-08-10] MEDS ORDERED: CLON1TAB8 (18:32)
[2020-08-10] MEDS ORDERED: HALOPERIDOL 5MG/ML VIAL (J1630 PER 1) IV ONE (18:55)
[2020-08-10 18:57] LABS: BASO # 0.1 10^3/uL (0.0-0.2); BASO % 0.8 % (0.0-1.0); EOS # 0.4 10^3/uL (0.0-0.5); EOS % 3.3 % (0.0-3.0); HEMATOCRIT 47.8 % (36.0-47.0); HEMOGLOBIN 15.9 g/dl (12.0-15.5); LYMPH # 3.4 10^3/uL (1.5-5.0); MEAN CORPUSCULAR HEMOGLOBIN 33.6 pg (27.0-33.0); MEAN CORPUSCULAR HGB CONC 33.3 g/dl (32.0-36.5); MEAN CORPUSCULAR VOLUME 101.1 fl (80.0-96.0); MONO # 0.9 10^3/uL (0.0-0.8); MONO % 8.8 % (2.0-8.0); NEUTROPHILS # 5.8 10^3/uL (1.5-8.5); NEUTROPHILS % 54.6 % (36.0-66.0); PLATELET COUNT, AUTOMATED 583 10^3/uL (150-450); RED BLOOD COUNT 4.73 10^6/uL (4.00-5.40); WHITE BLOOD COUNT 10.6 10^3/uL (4.0-10.0)
[2020-08-10 19:21] LABS: ACETAMINOPHEN LEVEL < 2.0 UG/ML (10.0-30.0); AMPHETAMINES LEVEL URINE NEGATIVE (NEGATIVE); BARBITURATES URINE NEGATIVE (NEGATIVE); BENZODIAZEPINES URINE NEGATIVE (NEGATIVE); CANNABINOIDS URINE POSITIVE (NEGATIVE); COCAINE METABOLITE URINE NEGATIVE (NEGATIVE); ETHYL ALCOHOL (ETHANOL) 0.214 % (0.000-0.010); METHADONE URINE NEGATIVE (NEGATIVE); OPIATES URINE NEGATIVE (NEGATIVE); PHENCYCLIDINE URINE NEGATIVE (NEGATIVE); SALICYLATE LEVEL 5.3 MG/DL (5.0-30.0)
[2020-08-10 19:22] LABS: ALBUMIN 3.6 GM/DL (3.2-5.2); BILIRUBIN,DIRECT 0.1 MG/DL (0.0-0.2); BILIRUBIN,TOTAL 0.3 MG/DL (0.2-1.0); TOTAL PROTEIN 7.9 GM/DL (6.4-8.2)
--- NOTE | 2020-08-10 20:26 | REPVR ---
PROCEDURE INFORMATION: Exam: CT Abdomen And Pelvis Without Contrast Exam date and time: 08/10/2020 7:45 PM Age: 44 years old Clinical indication: Abdominal pain; Additional info: Abd pin TECHNIQUE: Imaging protocol: Computed tomography of the abdomen and pelvis without contrast. Radiation optimization: All CT scans at this facility use at least one of these dose optimization techniques: automated exposure control; mA and/or kV adjustment per patient size (includes targeted exams where dose is matched to clinical indication); or iterative reconstruction. COMPARISON: 1. CR Spine. Lumbosacral, complete 02/10/2018 5:26 PM 2. CR Spine. Lumbosacral, complete 11/29/2017 3:18 PM FINDINGS: Lungs: Ground-glass opacity right lower lobe may represent atelectasis however a small focus of pneumonitis is not excluded. Liver: Normal. No mass. Gallbladder and bile ducts: Hydropic gallbladder without evidence of calculi or wall thickening. Pancreas: Normal. No ductal dilation. Spleen: Normal. No splenomegaly. Adrenal glands: Normal. No mass. Kidneys and ureters: Normal. No hydronephrosis. Stomach and bowel: There is an ahaustral segment of the distal transverse, splenic flexure and proximal left colon without significant pericolonic inflammation. Colon is also reduced in caliber. Findings may be related to nondistention however localized inflammatory bowel disease not excluded. There is no abscess. Appendix: No evidence of appendicitis. Intraperitoneal space: Unremarkable. No free air. No significant fluid collection. Vasculature: The aortoiliac vessels demonstrate mild atherosclerotic calcification. Lymph nodes: Unremarkable. No enlarged lymph nodes. Urinary bladder: Unremarkable as visualized. Reproductive: Unremarkable as visualized. Bones/joints: Shallow dextroscoliosis. Moderate central spinal stenosis L3-L4, severe central spinal stenosis L4-L5. Soft tissues: Unremarkable. IMPRESSION: 1. Ground-glass opacity right lower lobe may represent atelectasis however a small focus of pneumonitis is not excluded. 2. Hydropic gallbladder without evidence of calculi or wall thickening. 3. There is an ahaustral segment of the distal transverse, splenic flexure and proximal left colon without significant pericolonic inflammation. Colon is also reduced in caliber. Findings may be related to nondistention however localized inflammatory bowel disease not excluded. There is no abscess. Electronically signed by: Cruz Cornejo On 08/10/2020 20:26:01 PM
--- NOTE | 2020-08-10 21:39 | ECGEPIP ---
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 Electronically Signed on 08-10-2020 21:38:56 EDT by Joe Vargas
[2020-08-11 06:04] VITALS: BP 177/88
--- NOTE | 2020-08-16 11:59 | ED PDOC ---
Post-Departure Follow-Up radiology report faxed to [facility] Sarah MD Aug 16, 2020 11:59
== END 2020-08-11 06:09 | disposition home or self-care (01) ==
LOC: M ED 17:55 → EDBD 17:55 → M ED 08-11 06:09
DX: F10.129 Alcohol abuse with intoxication, unspecified (principal); F43.0 Acute stress reaction; R00.0 Tachycardia, unspecified; E66.9 Obesity, unspecified; E11.9 Type 2 diabetes mellitus without complications; I10 Essential (primary) hypertension; J44.9 Chronic obstructive pulmonary disease, unspecified; N18.30 Chronic kidney disease, stage 3 unspecified; Z86.19 Personal history of other infectious and parasitic diseases; D72.829 Elevated white blood cell count, unspecified; D69.6 Thrombocytopenia, unspecified; F17.200 Nicotine dependence, unspecified, uncomplicated; R91.8 Other nonspecific abnormal finding of lung field; K82.1 Hydrops of gallbladder; Z79.899 Other long term (current) drug therapy; Z91.041 Radiographic dye allergy status; Z88.8 Allergy status to other drugs, medicaments and biological substances; Z88.1 Allergy status to other antibiotic agents
CPT/HCPCS: 74176; 80047; 80076; 80143; 80307; 82077; 83690; 84702; 85025; 93005; 93041; 96361; 96374; 99285; J1630

== ENCOUNTER → 2021-01-05 | Outpatient (CLI) | payer OTHER ==
[~2021-01-05] MED LIST changes: +CLON1TAB8; +DOXY-443; -DOXY1CAP62; +LISI2.5T9; -OLAN10TA2 PO; +OLAN1TAB20 PO
[2021-01-05 15:21] LABS: HEMATOCRIT 43.3 % (36.0-47.0); MEAN CORPUSCULAR HGB CONC 32.3 g/dl (32.0-36.5); MEAN CORPUSCULAR VOLUME 105.1 fl (80.0-96.0); PLATELET COUNT, AUTOMATED 557 10^3/uL (150-450); RED BLOOD COUNT 4.12 10^6/uL (4.00-5.40); WHITE BLOOD COUNT 16.6 10^3/uL (4.0-10.0)
[2021-01-05 15:51] LABS: HEMOGLOBIN A1c 5.8 %
[2021-01-05 15:52] LABS: ALBUMIN 3.6 GM/DL (3.2-5.2); ALT/SGPT 39 U/L (12-78); BILIRUBIN,TOTAL 0.6 MG/DL (0.2-1.0); BLOOD UREA NITROGEN 10 MG/DL (7-18); CALCIUM LEVEL 9.7 MG/DL (8.5-10.1); CARBON DIOXIDE LEVEL 26 MEQ/L (21-32); CHLORIDE LEVEL 104 MEQ/L (98-107); CREATININE FOR GFR 0.73 MG/DL (0.55-1.30); GLOMERULAR FILTRATION RATE > 60.0 (>58); GLUCOSE, FASTING 94 MG/DL (70-100); POTASSIUM SERUM 4.5 MEQ/L (3.5-5.1); SODIUM LEVEL 137 MEQ/L (136-145); TOTAL PROTEIN 7.6 GM/DL (6.4-8.2)
[2021-01-05 15:58] LABS: EOSINOPHILS 1 % (0-3); LYMPHOCYTES 32 % (16-44); MONOCYTES 4 % (0-5); NEUTROPHILS 63 % (28-66); PLATELET ESTIMATE INCREASED (NORMAL)
== END ==
LOC: M PLALAB 13:45
PROVIDERS: ATTEND Internal Medicine Infectious Disease
DX: B18.2 Chronic viral hepatitis C (principal)

== ENCOUNTER → 2021-12-01 | Outpatient (REF) | payer OTHER ==
[~2021-12-01] MED LIST changes: -LISI-898 PO; +LISI5TAB11 PO; +LOSA50TA28 PO; -LOSA50TA88 PO
[2021-12-01 14:52] LABS: MALB URINE SIEMENS 13.6 MG/L; MAU/CREAT RATIO 4.5 MCG/MG (0.0-30.0)
== END ==
LOC: M LAB REF 12:21
PROVIDERS: ATTEND Family Medicine Addiction Medicine
DX: E11.9 Type 2 diabetes mellitus without complications (principal); R30.0 Dysuria

== ENCOUNTER → 2022-02-06 | Outpatient (REF) | payer OTHER ==
[2022-02-06 13:35] LABS: HEMOGLOBIN A1c 6.4 % (4.0-6.0)
[2022-02-06 13:45] LABS: ALBUMIN 3.7 G/DL (3.2-5.2); ALKALINE PHOSPHATASE 96 U/L (46-116); ALT/SGPT 30 U/L (7.0-40); AST/SGOT 18 U/L (<34); BILIRUBIN,TOTAL 0.7 MG/DL (0.3-1.2); BLOOD UREA NITROGEN 14 MG/DL (9-23); CARBON DIOXIDE LEVEL 22 MMOL/L (20-31); CHLORIDE LEVEL 105 MMOL/L (98-107); CHOLESTEROL LEVEL 190 MG/DL (<200); CREATININE FOR GFR 0.75 MG/DL (0.55-1.30); GLOMERULAR FILTRATION RATE > 60.0 (>58); GLUCOSE, FASTING 175 MG/DL (60-100); HDL CHOLESTEROL 48.7 MG/DL (>40); LDL CHOLESTEROL 128.5 MG/DL (<100); NON-HDL-C 141 MG/DL; POTASSIUM SERUM 4.5 MMOL/L (3.5-5.1); SODIUM LEVEL 136 MMOL/L (136-145); THYROID STIMULATING HORMONE 4.129 uIU/ML (0.55-4.78); TOTAL PROTEIN 7.4 G/DL (5.7-8.2); TRIGLYCERIDES LEVEL 64 MG/DL (<150)
== END ==
LOC: M LAB REF 11:28
PROVIDERS: ATTEND Family Medicine Addiction Medicine
DX: E11.9 Type 2 diabetes mellitus without complications (principal)

== ENCOUNTER 2022-04-29 19:33 | Emergency (ER) | payer OTHER ==
[~2022-04-29] VITALS: Ht 165.1 cm; Wt 104.5 kg
[2022-04-29] MEDS ORDERED: IBUP80TA PO (19:49)
[2022-04-29] MEDS ORDERED: LISI5TAB11 PO (19:49)
[2022-04-29] MEDS ORDERED: ONDANSETRON 4MG 2ML VIAL IV ONE (23:10)
[2022-04-29] MEDS ORDERED: MORPHINE 4 MG/ML 1ML VIAL IV ONE (23:10)
[2022-04-29 23:53] LABS: VENOUS BASE EXCESS -1.8 (-2.0-2.0); VENOUS HCO3 24.1 MEQ/L (23.0-27.0); VENOUS O2 SATURATION 75.6 % (60.0-80.0); VENOUS PARTIAL PRESSURE CO2 44.9 mmHg (38.0-50.0); VENOUS PARTIAL PRESSURE O2 41.1 mmHg (30.0-50.0); VENOUS PH 7.347 UNITS (7.330-7.430); VENOUS STANDARD HCO3 22.4 MEQ/L; VENOUS TOTAL CO2 25.4 MEQ/L (24.0-28.0)
[2022-04-29 23:56] LABS: BASO # 0.1 10^3/uL (0.0-0.2); BASO % 0.7 % (0.0-1.0); EOS # 0.4 10^3/uL (0.0-0.5); EOS % 2.4 % (0.0-3.0); HEMATOCRIT 43.2 % (36.0-47.0); HEMOGLOBIN 13.8 g/dl (12.0-15.5); LYMPH # 6.6 10^3/uL (1.5-5.0); LYMPH % 36.3 % (24.0-44.0); MEAN CORPUSCULAR HEMOGLOBIN 32.2 pg (27.0-33.0); MEAN CORPUSCULAR HGB CONC 31.9 g/dl (32.0-36.5); MEAN CORPUSCULAR VOLUME 100.7 fl (80.0-96.0); MONO # 1.4 10^3/uL (0.0-0.8); MONO % 7.8 % (2.0-8.0); NEUTROPHILS # 9.4 10^3/uL (1.5-8.5); NEUTROPHILS % 52.2 % (36.0-66.0); PLATELET COUNT, AUTOMATED 575 10^3/uL (150-450); RED BLOOD COUNT 4.29 10^6/uL (4.00-5.40); WHITE BLOOD COUNT 18.1 10^3/uL (4.0-10.0)
[2022-04-30 00:11] LABS: BLOOD UREA NITROGEN 19 MG/DL (9-23); CALCIUM LEVEL 8.8 MG/DL (8.5-10.1); CARBON DIOXIDE LEVEL 24 MMOL/L (20-31); CHLORIDE LEVEL 103 MMOL/L (98-107); CREATININE FOR GFR 0.79 MG/DL (0.55-1.30); GLOMERULAR FILTRATION RATE > 60.0 (>58); GLUCOSE, FASTING 102 MG/DL (60-100); POTASSIUM SERUM 4.3 MMOL/L (3.5-5.1); SODIUM LEVEL 136 MMOL/L (136-145)
[2022-04-30] MEDS: IPRATROPIUM 0.5MG/ALBUTEROL 2.5MG INH SOL UD 3ML (DUONEB) NEB PRN ×2 (01:16→01:24)
[2022-04-30] MEDS ORDERED: OXYCODONE/APAP 5MG/325MG(HOME DOSE PACK) PO ONE (02:05)
[2022-04-30] MEDS ORDERED: BENZ200C70 PO (02:13)
[2022-04-30] MEDS ORDERED: PERC5TAB12 PO (02:13)
[2022-04-30] MEDS ORDERED: NEBU1EAC78 MC (02:13)
[2022-04-30] MEDS ORDERED: IPRA0.00 NEB (02:13)
[2022-04-30] MEDS ORDERED: MORPHINE 4 MG/ML 1ML VIAL IV ONE (02:30)
[2022-04-30 02:45] VITALS: BP 112/57
== END 2022-04-30 02:47 | disposition home or self-care (01) ==
LOC: M ED 19:33 → EDBD 19:33 → M ED 04-30 02:47
DX: S22.49XA Multiple fractures of ribs, unspecified side, initial encounter for closed fracture (principal); X58.XXXA Exposure to other specified factors, initial encounter; Y92.89 Other specified places as the place of occurrence of the external cause; Y93.89 Activity, other specified; Y99.8 Other external cause status; I10 Essential (primary) hypertension; E78.5 Hyperlipidemia, unspecified; K21.9 Gastro-esophageal reflux disease without esophagitis; J44.9 Chronic obstructive pulmonary disease, unspecified; F17.200 Nicotine dependence, unspecified, uncomplicated; F43.10 Post-traumatic stress disorder, unspecified; Z86.711 Personal history of pulmonary embolism; Z88.8 Allergy status to other drugs, medicaments and biological substances; Z79.899 Other long term (current) drug therapy
CPT/HCPCS: 71046; 71250; 80048; 82803; 83605; 85025; 94640; 96374; 96375; 96376; 99284; J2270; J2405

== ENCOUNTER 2022-06-20 16:05 | Emergency (ER) | payer OTHER ==
[~2022-06-20] VITALS: Ht 165.1 cm; Wt 105.2 kg
[~2022-06-20 16:05] MED LIST changes: +BENZ200C70 PO; +IBUP80TA PO; +IPRA0.00 NEB; +NEBU1EAC78 MC; +PERC5TAB12 PO
[2022-06-20] MEDS ORDERED: CETI-24 (17:05)
[2022-06-20] MEDS ORDERED: NORCO, ANEXSIA 5/325MG TABLET (HYDROcodone/ACETAMINOPHEN) PO ONE (18:55)
[2022-06-20] MEDS ORDERED: BENZONATATE 100MG CAPSULE PO ONE (19:30)
[2022-06-20] MEDS ORDERED: NYST-13 TOP (20:21)
[2022-06-20] MEDS ORDERED: BENZ200C70 PO (20:21)
[2022-06-20 20:28] VITALS: BP 120/77
== END 2022-06-20 20:38 | disposition home or self-care (01) ==
LOC: M ED 16:05 → EDBD 16:05 → M ED 20:38
DX: L30.4 Erythema intertrigo (principal); R51.9 Headache, unspecified; R07.89 Other chest pain; E11.9 Type 2 diabetes mellitus without complications; J44.9 Chronic obstructive pulmonary disease, unspecified; K21.9 Gastro-esophageal reflux disease without esophagitis; E78.5 Hyperlipidemia, unspecified; D72.829 Elevated white blood cell count, unspecified; F41.9 Anxiety disorder, unspecified; F32.A Depression, unspecified; F43.10 Post-traumatic stress disorder, unspecified; M54.9 Dorsalgia, unspecified; Z86.718 Personal history of other venous thrombosis and embolism; F17.210 Nicotine dependence, cigarettes, uncomplicated; F12.90 Cannabis use, unspecified, uncomplicated; Z91.041 Radiographic dye allergy status; Z88.1 Allergy status to other antibiotic agents; Z88.8 Allergy status to other drugs, medicaments and biological substances; Z79.899 Other long term (current) drug therapy; Z79.51 Long term (current) use of inhaled steroids

== ENCOUNTER 2022-07-17 14:51 | Emergency (ER) | payer OTHER ==
[~2022-07-17] VITALS: Ht 165.1 cm; Wt 103.8 kg
[~2022-07-17 14:51] MED LIST changes: +CETI-24; +NYST-13 TOP
[2022-07-17 16:30] VITALS: BP 98/55
== END 2022-07-17 18:32 | disposition home or self-care (01) ==
LOC: EDBD 14:51 → M ED 14:51
DX: F10.129 Alcohol abuse with intoxication, unspecified (principal); E11.9 Type 2 diabetes mellitus without complications; I10 Essential (primary) hypertension; N18.30 Chronic kidney disease, stage 3 unspecified; J44.9 Chronic obstructive pulmonary disease, unspecified; B18.2 Chronic viral hepatitis C; F19.10 Other psychoactive substance abuse, uncomplicated; F41.9 Anxiety disorder, unspecified; F32.A Depression, unspecified; Z91.041 Radiographic dye allergy status; Z88.1 Allergy status to other antibiotic agents; Z88.8 Allergy status to other drugs, medicaments and biological substances; Z79.899 Other long term (current) drug therapy

== ENCOUNTER 2022-08-18 08:33 | Emergency (ER) | payer OTHER ==
[~2022-08-18] VITALS: Ht 165.1 cm; Wt 106.1 kg
[2022-08-18 09:19] LABS: HEMATOCRIT 40.3 % (36.0-47.0); HEMOGLOBIN 13.2 g/dl (12.0-15.5); MEAN CORPUSCULAR HEMOGLOBIN 32.4 pg (27.0-33.0); MEAN CORPUSCULAR HGB CONC 32.8 g/dl (32.0-36.5); MEAN CORPUSCULAR VOLUME 98.8 fl (80.0-96.0); PLATELET COUNT, AUTOMATED 500 10^3/uL (150-450); RED BLOOD COUNT 4.08 10^6/uL (4.00-5.40); WHITE BLOOD COUNT 12.1 10^3/uL (4.0-10.0)
[2022-08-18 09:23] LABS: INR 0.95; PROTHROMBIN TIME 12.9 SECONDS (12.5-14.5)
[2022-08-18 09:24] LABS: PARTIAL THROMBOPLASTIN TIME 24.1 SECONDS (24.8-34.2)
[2022-08-18] MEDS: MORPHINE 2 MG/ML 1ML VIAL IV PRN ×2 (09:28→10:31)
[2022-08-18 09:42] LABS: ETHYL ALCOHOL (ETHANOL) 0.175 % (0.000-0.010); LIPASE 28 U/L (12-53)
[2022-08-18 09:44] LABS: ALBUMIN 3.2 G/DL (3.2-5.2); ALKALINE PHOSPHATASE 96 U/L (46-116); ALT/SGPT 23 U/L (7.0-40); AST/SGOT 15 U/L (<34); BILIRUBIN,DIRECT < 0.1 MG/DL (<0.4); BILIRUBIN,TOTAL 0.2 MG/DL (0.3-1.2); BLOOD UREA NITROGEN 8 MG/DL (9-23); CALCIUM LEVEL 9.3 MG/DL (8.5-10.1); CARBON DIOXIDE LEVEL 21 MMOL/L (20-31); CHLORIDE LEVEL 107 MMOL/L (98-107); CK-MB VALUE MASS < 1.0 NG/ML (<3.6); CREATININE FOR GFR 0.59 MG/DL (0.55-1.30); GLOMERULAR FILTRATION RATE > 60.0 (>58); GLUCOSE, FASTING 128 MG/DL (60-100); POTASSIUM SERUM 4.1 MMOL/L (3.5-5.1); SODIUM LEVEL 139 MMOL/L (136-145); TOTAL PROTEIN 6.6 G/DL (5.7-8.2)
[2022-08-18 09:44] LABS: ATYPICAL LYMPH 1 % (0-5); BASOPHILS 1 % (0-1); EOSINOPHILS 2 % (0-3); LYMPHOCYTES 42 % (16-44); MONOCYTES 7 % (0-5); NEUTROPHILS 47 % (28-66)
[2022-08-18 09:45] LABS: PLATELET CLUMPS SMALL AMT; PLATELET ESTIMATE INCREASED (NORMAL)
[2022-08-18 09:46] LABS: CPK CREATINE PHOSPHOKINASE 74 U/L (34-145); MB/CK RELATIVE INDEX 1.35 (< OR =4)
[2022-08-18 10:08] LABS: RSV AMPLIFICATION NEGATIVE (NEGATIVE)
[2022-08-18 10:25] LABS: AMPHETAMINES LEVEL URINE NEGATIVE (NEGATIVE); BARBITURATES URINE NEGATIVE (NEGATIVE); BENZODIAZEPINES URINE NEGATIVE (NEGATIVE); COCAINE METABOLITE URINE NEGATIVE (NEGATIVE); METHADONE URINE NEGATIVE (NEGATIVE); OPIATES URINE NEGATIVE (NEGATIVE); PHENCYCLIDINE URINE NEGATIVE (NEGATIVE)
[2022-08-18 10:28] LABS: CANNABINOIDS URINE POSITIVE (NEGATIVE); CK-MB VALUE MASS < 1.0 NG/ML (<3.6)
[2022-08-18 10:29] LABS: CPK CREATINE PHOSPHOKINASE 66 U/L (34-145); MB/CK RELATIVE INDEX 1.51 (< OR =4)
[2022-08-18] MEDS ORDERED: KETOROLAC 30 MG/ML 1ML VIAL IV ONE (11:30)
[2022-08-18] MEDS ORDERED: ACETAMINOPHEN 1000MG 100ML IV BAG IV ONE (11:40)
[2022-08-18] MEDS ORDERED: ONDA4TAB6 PO (12:36)
[2022-08-18 13:17] VITALS: BP 135/87; TEMP 98.3; O2SAT 97
== END 2022-08-18 13:23 | disposition home or self-care (01) ==
LOC: M ED 08:33
DX: R55 Syncope and collapse (principal); F10.129 Alcohol abuse with intoxication, unspecified; R11.10 Vomiting, unspecified; S09.90XA Unspecified injury of head, initial encounter; W19.XXXA Unspecified fall, initial encounter; Y92.89 Other specified places as the place of occurrence of the external cause; Y93.89 Activity, other specified; Y99.8 Other external cause status; E11.9 Type 2 diabetes mellitus without complications; I12.9 Hypertensive chronic kidney disease with stage 1 through stage 4 chronic kidney disease, or unspecified chronic kidney disease; N18.30 Chronic kidney disease, stage 3 unspecified; J44.9 Chronic obstructive pulmonary disease, unspecified; Z91.041 Radiographic dye allergy status; Z88.1 Allergy status to other antibiotic agents; Z88.8 Allergy status to other drugs, medicaments and biological substances; Z79.899 Other long term (current) drug therapy
CPT/HCPCS: 70450; 71045; 72125; 74176; 80047; 80048; 80076; 80307; 81001; 82077; 82550; 82553; 83605; 83690; 84702; 85025; 85610; 85730; 87088; 87186; 87631; 93005; 93041; 96374; 96375; 99285; J0131

== ENCOUNTER 2022-09-26 20:15 | Emergency (ER) | payer OTHER ==
[~2022-09-26] VITALS: Ht 165.1 cm; Wt 100.0 kg
[2022-09-26] MEDS ORDERED: MORPHINE 2 MG/ML 1ML VIAL IV ONE (22:50)
[2022-09-26] MEDS ORDERED: NS 1,000 ML IV ONE (22:50)
[2022-09-26 23:22] LABS: HEMATOCRIT 40.4 % (36.0-47.0); HEMOGLOBIN 13.1 g/dl (12.0-15.5); MEAN CORPUSCULAR HEMOGLOBIN 32.8 pg (27.0-33.0); MEAN CORPUSCULAR HGB CONC 32.4 g/dl (32.0-36.5); PLATELET COUNT, AUTOMATED 505 10^3/uL (150-450); WHITE BLOOD COUNT 14.8 10^3/uL (4.0-10.0)
[2022-09-26 23:46] LABS: ERYTHROCYTE SEDIMENTATION RATE 45 mm/hr (0-20)
[2022-09-26 23:53] LABS: ALBUMIN 3.8 G/DL (3.2-5.2); ALKALINE PHOSPHATASE 105 U/L (46-116); ALT/SGPT 52 U/L (7.0-40); AST/SGOT 27 U/L (<34); BILIRUBIN,DIRECT 0.2 MG/DL (<0.4); BILIRUBIN,TOTAL 0.5 MG/DL (0.3-1.2); BLOOD UREA NITROGEN 10 MG/DL (9-23); CALCIUM LEVEL 9.2 MG/DL (8.5-10.1); CARBON DIOXIDE LEVEL 24 MMOL/L (20-31); CHLORIDE LEVEL 103 MMOL/L (98-107); CREATININE FOR GFR 0.66 MG/DL (0.55-1.30); GLOMERULAR FILTRATION RATE > 60.0 (>58); GLUCOSE, FASTING 93 MG/DL (60-100); POTASSIUM SERUM 4.2 MMOL/L (3.5-5.1); SODIUM LEVEL 137 MMOL/L (136-145); TOTAL PROTEIN 7.7 G/DL (5.7-8.2)
[2022-09-27 00:30] LABS: EOSINOPHILS 3 % (0-3); LYMPHOCYTES 43 % (16-44); MONOCYTES 5 % (0-5); NEUTROPHILS 49 % (28-66); PLATELET ESTIMATE NORMAL (NORMAL)
[2022-09-27 01:48] VITALS: BP 128/92; TEMP 96.7; O2SAT 100
== END 2022-09-27 01:45 | disposition home or self-care (01) ==
LOC: EDBD 20:15 → M ED 20:15
DX: G89.18 Other acute postprocedural pain (principal); I10 Essential (primary) hypertension; E78.5 Hyperlipidemia, unspecified; J44.9 Chronic obstructive pulmonary disease, unspecified; M54.9 Dorsalgia, unspecified; F41.9 Anxiety disorder, unspecified; F32.A Depression, unspecified; Z86.718 Personal history of other venous thrombosis and embolism; K21.9 Gastro-esophageal reflux disease without esophagitis; F17.200 Nicotine dependence, unspecified, uncomplicated; Z91.041 Radiographic dye allergy status; Z88.1 Allergy status to other antibiotic agents; Z88.8 Allergy status to other drugs, medicaments and biological substances; Z79.899 Other long term (current) drug therapy

== ENCOUNTER → 2022-09-26 | Outpatient (REF) ==
[~2022-09-26] MED LIST changes: +ONDA4TAB6 PO
== END ==
LOC: M PLAIMG 13:03
PROVIDERS: ATTEND Internal Medicine
DX: Z11.52 Encounter for screening for COVID-19 (principal)

== ENCOUNTER 2022-12-22 12:05 | Emergency (ER) | payer OTHER ==
[~2022-12-22] VITALS: Ht 165.1 cm; Wt 101.0 kg
[~2022-12-22 12:05] MED LIST changes: -CLON1TAB8; +GLIP5TAB17 PO; -GLIP5TAB8 PO
[2022-12-22 13:26] LABS: HEMATOCRIT 48.3 % (36.0-47.0); HEMOGLOBIN 15.9 g/dl (12.0-15.5); MEAN CORPUSCULAR HEMOGLOBIN 32.4 pg (27.0-33.0); MEAN CORPUSCULAR HGB CONC 32.9 g/dl (32.0-36.5); MEAN CORPUSCULAR VOLUME 98.6 fl (80.0-96.0); PLATELET COUNT, AUTOMATED 683 10^3/uL (150-450); WHITE BLOOD COUNT 12.8 10^3/uL (4.0-10.0)
[2022-12-22 13:47] LABS: ATYPICAL LYMPH 9 % (0-5); BASOPHILS 2 % (0-1); EOSINOPHILS 3 % (0-3); LYMPHOCYTES 37 % (16-44); MONOCYTES 1 % (0-5); NEUTROPHILS 48 % (28-66)
[2022-12-22 13:49] LABS: PLATELET CLUMPS SMALL AMT; PLATELET ESTIMATE INCREASED (NORMAL)
[2022-12-22 13:54] LABS: SALICYLATE LEVEL < 3.0 MG/DL (<30)
[2022-12-22 13:55] LABS: ALBUMIN 3.8 G/DL (3.2-5.2); ALKALINE PHOSPHATASE 114 U/L (46-116); ALT/SGPT 42 U/L (7.0-40); AST/SGOT 33 U/L (<34); BILIRUBIN,DIRECT 0.1 MG/DL (<0.4); BILIRUBIN,TOTAL 0.3 MG/DL (0.3-1.2); BLOOD UREA NITROGEN 5 MG/DL (9-23); CALCIUM LEVEL 8.9 MG/DL (8.5-10.1); CARBON DIOXIDE LEVEL 25 MMOL/L (20-31); CHLORIDE LEVEL 105 MMOL/L (98-107); CREATININE FOR GFR 0.66 MG/DL (0.55-1.30); GLOMERULAR FILTRATION RATE > 60.0 (>58); GLUCOSE, FASTING 117 MG/DL (60-100); POTASSIUM SERUM 3.3 MMOL/L (3.5-5.1); SODIUM LEVEL 141 MMOL/L (136-145); TOTAL PROTEIN 7.6 G/DL (5.7-8.2)
[2022-12-22] MEDS ORDERED: NS 1,000 ML IV ONE (13:55)
[2022-12-22] MEDS ORDERED: LORazepam 2 MG/ML 1ML VIAL IV STA (13:55)
[2022-12-22 13:57] LABS: THYROID STIMULATING HORMONE 0.926 uIU/ML (0.55-4.78)
[2022-12-22 14:03] LABS: OSMOLALITY SERUM 373 MOSM/KG (275-295)
[2022-12-22 14:16] LABS: ETHYL ALCOHOL (ETHANOL) 0.338 % (0.000-0.010)
[2022-12-22 14:19] LABS: RSV AMPLIFICATION NEGATIVE (NEGATIVE)
[2022-12-22] MEDS: LORazepam 2 MG/ML 1ML VIAL IV PRN ×2 (14:54→17:09)
[2022-12-22] MEDS ORDERED: traMADol 50 MG TAB PO ONE (17:20)
[2022-12-22] MEDS ORDERED: LORazepam 2 MG TAB PO PRN (19:30)
[2022-12-22] MEDS ORDERED: LORazepam 1 MG TAB PO PRN (19:35)
[2022-12-22] MEDS ORDERED: AMPH1CAP5 PO (19:42)
[2022-12-22] MEDS ORDERED: PRAZ5CAP PO (19:42)
[2022-12-22] MEDS ORDERED: PREG150C2 PO (19:42)
[2022-12-22] MEDS ORDERED: ATOM40CA9 PO (19:42)
[2022-12-22] MEDS ORDERED: HYDR-3490 PO (19:42)
[2022-12-22] MEDS ORDERED: CITA20TA7 PO (19:42)
[2022-12-22] MEDS ORDERED: THIAMINE 100 MG TAB PO SCH (20:00)
[2022-12-22 21:47] LABS: OSMOLALITY SERUM 311 MOSM/KG (275-295)
[2022-12-22 21:59] LABS: SALICYLATE LEVEL < 3.0 MG/DL (<30)
[2022-12-22 22:02] LABS: BLOOD UREA NITROGEN 7 MG/DL (9-23); CALCIUM LEVEL 8.5 MG/DL (8.5-10.1); CARBON DIOXIDE LEVEL 25 MMOL/L (20-31); CHLORIDE LEVEL 107 MMOL/L (98-107); CREATININE FOR GFR 0.67 MG/DL (0.55-1.30); GLOMERULAR FILTRATION RATE > 60.0 (>58); GLUCOSE, FASTING 162 MG/DL (60-100); POTASSIUM SERUM 4.5 MMOL/L (3.5-5.1); SODIUM LEVEL 142 MMOL/L (136-145)
[2022-12-22 23:15] VITALS: BP 148/95; TEMP 97.9; O2SAT 99
[2022-12-23] MEDS ORDERED: NS 3,030 ML in IV 1 EA IV ONE (00:35)
[2022-12-23 03:08] LABS: AMPHETAMINES LEVEL URINE NEGATIVE (NEGATIVE); BARBITURATES URINE NEGATIVE (NEGATIVE); BENZODIAZEPINES URINE NEGATIVE (NEGATIVE); COCAINE METABOLITE URINE NEGATIVE (NEGATIVE); METHADONE URINE NEGATIVE (NEGATIVE); OPIATES URINE NEGATIVE (NEGATIVE); PHENCYCLIDINE URINE NEGATIVE (NEGATIVE)
[2022-12-23 03:08] LABS: ETHYL ALCOHOL (ETHANOL) 0.005 % (0.000-0.010)
[2022-12-23 03:10] LABS: BLOOD UREA NITROGEN 10 MG/DL (9-23); CALCIUM LEVEL 7.5 MG/DL (8.5-10.1); CARBON DIOXIDE LEVEL 27 MMOL/L (20-31); CHLORIDE LEVEL 109 MMOL/L (98-107); CREATININE FOR GFR 0.75 MG/DL (0.55-1.30); GLOMERULAR FILTRATION RATE > 60.0 (>58); GLUCOSE, FASTING 116 MG/DL (60-100); POTASSIUM SERUM 3.9 MMOL/L (3.5-5.1); SODIUM LEVEL 142 MMOL/L (136-145)
[2022-12-23 03:10] LABS: CANNABINOIDS URINE POSITIVE (NEGATIVE)
[2022-12-23] MEDS ORDERED: NITROFURANTOIN (MACROBID) 100 MG CAP PO ONE (04:05)
[2022-12-23] MEDS ORDERED: MACR100C43 PO (05:15)
[2022-12-23] MEDS ORDERED: FOLIC ACID 1MG TAB PO SCH (09:00)
[2022-12-23] MEDS ORDERED: MULTIVITAMINS/MINERALS THERAP 1 TAB PO SCH (09:00)
[2022-12-23] MEDS ORDERED: NITROFURANTOIN (MACROBID) 100 MG CAP PO SCH (21:00)
== END 2022-12-23 05:15 | disposition home or self-care (01) ==
LOC: M ED 12:05
DX: F10.129 Alcohol abuse with intoxication, unspecified (principal); F43.0 Acute stress reaction; N39.0 Urinary tract infection, site not specified; E86.0 Dehydration; M47.892 Other spondylosis, cervical region; E11.9 Type 2 diabetes mellitus without complications; I10 Essential (primary) hypertension; J44.9 Chronic obstructive pulmonary disease, unspecified; K21.9 Gastro-esophageal reflux disease without esophagitis; F43.10 Post-traumatic stress disorder, unspecified; M54.50 Low back pain, unspecified; F17.200 Nicotine dependence, unspecified, uncomplicated; Z79.899 Other long term (current) drug therapy; Z91.041 Radiographic dye allergy status; Z88.1 Allergy status to other antibiotic agents; Z88.8 Allergy status to other drugs, medicaments and biological substances
CPT/HCPCS: 70450; 71045; 72125; 80048; 80076; 80143; 80307; 81001; 82077; 82140; 83605; 83930; 84443; 85025; 87040; 87088; 87186; 87631; 93005; 93041; 94760; 96361; 96374; 96376; 99285; J2060

== ENCOUNTER 2023-01-03 16:45 | Emergency (ER) | payer OTHER ==
[~2023-01-03] VITALS: Ht 165.1 cm; Wt 81.8 kg
[~2023-01-03 16:45] MED LIST changes: +AMPH1CAP5 PO; +ATOM40CA9 PO; +CITA20TA7 PO; +MACR100C43 PO; +PRAZ5CAP PO; +PREG150C2 PO
[2023-01-03] MEDS ORDERED: LORazepam 2 MG/ML 1ML VIAL IM STA (17:06)
[2023-01-03] MEDS ORDERED: HALOPERIDOL 5MG/ML 1ML VIAL IM ONE (17:10)
[2023-01-03 17:37] LABS: HEMATOCRIT 46.2 % (36.0-47.0); HEMOGLOBIN 15.2 g/dl (12.0-15.5); MEAN CORPUSCULAR HGB CONC 32.9 g/dl (32.0-36.5); MEAN CORPUSCULAR VOLUME 100.4 fl (80.0-96.0); PLATELET COUNT, AUTOMATED 561 10^3/uL (150-450)
[2023-01-03] MEDS ORDERED: LORazepam 2 MG/ML 1ML VIAL IV STA (17:37)
[2023-01-03 17:56] LABS: SALICYLATE LEVEL < 3.0 MG/DL (<30)
[2023-01-03 17:57] LABS: ALBUMIN 3.9 G/DL (3.2-5.2); ALKALINE PHOSPHATASE 108 U/L (46-116); ALT/SGPT 36 U/L (7.0-40); AST/SGOT 32 U/L (<34); BILIRUBIN,DIRECT 0.2 MG/DL (<0.4); BILIRUBIN,TOTAL 0.7 MG/DL (0.3-1.2); BLOOD UREA NITROGEN 11 MG/DL (9-23); CALCIUM LEVEL 9.1 MG/DL (8.5-10.1); CARBON DIOXIDE LEVEL 21 MMOL/L (20-31); CHLORIDE LEVEL 109 MMOL/L (98-107); CREATININE FOR GFR 0.67 MG/DL (0.55-1.30); GLOMERULAR FILTRATION RATE > 60.0 (>58); GLUCOSE, FASTING 147 MG/DL (60-100); POTASSIUM SERUM 4.6 MMOL/L (3.5-5.1); SODIUM LEVEL 141 MMOL/L (136-145); TOTAL PROTEIN 7.7 G/DL (5.7-8.2)
[2023-01-03 17:59] LABS: THYROID STIMULATING HORMONE 2.329 uIU/ML (0.55-4.78)
[2023-01-03 18:08] LABS: RSV AMPLIFICATION NEGATIVE (NEGATIVE)
[2023-01-03 18:18] LABS: CPK CREATINE PHOSPHOKINASE 93 U/L (34-145); ETHYL ALCOHOL (ETHANOL) 0.304 % (0.000-0.010)
[2023-01-03 18:36] LABS: ATYPICAL LYMPH 4 % (0-5); EOSINOPHILS 2 % (0-3); LYMPHOCYTES 37 % (16-44); MONOCYTES 9 % (0-5); NEUTROPHILS 48 % (28-66); PLATELET ESTIMATE INCREASED (NORMAL)
[2023-01-03 19:16] LABS: AMPHETAMINES LEVEL URINE NEGATIVE (NEGATIVE); BARBITURATES URINE NEGATIVE (NEGATIVE); BENZODIAZEPINES URINE NEGATIVE (NEGATIVE); COCAINE METABOLITE URINE NEGATIVE (NEGATIVE); METHADONE URINE NEGATIVE (NEGATIVE); OPIATES URINE NEGATIVE (NEGATIVE); PHENCYCLIDINE URINE NEGATIVE (NEGATIVE)
[2023-01-03 19:19] LABS: CANNABINOIDS URINE POSITIVE (NEGATIVE)
[2023-01-03] MEDS: THIAMINE 100 MG TAB PO SCH (21:00)
[2023-01-03] MEDS ORDERED: LORazepam 2 MG TAB PO PRN (23:45)
[2023-01-04] MEDS ORDERED: FOLIC ACID 1MG TAB PO SCH (09:00)
[2023-01-04] MEDS ORDERED: MULTIVITAMINS/MINERALS THERAP 1 TAB PO SCH (09:00)
[2023-01-04] MEDS: THIAMINE 100 MG TAB PO SCH (10:16)
[2023-01-04 10:25] VITALS: BP 170/113; TEMP 97.4; O2SAT 100
== END 2023-01-04 10:32 | disposition home or self-care (01) ==
LOC: M ED 16:45
DX: F10.129 Alcohol abuse with intoxication, unspecified (principal); E11.9 Type 2 diabetes mellitus without complications; I10 Essential (primary) hypertension; F32.9 Major depressive disorder, single episode, unspecified; J44.9 Chronic obstructive pulmonary disease, unspecified; K21.9 Gastro-esophageal reflux disease without esophagitis; F43.10 Post-traumatic stress disorder, unspecified; F17.200 Nicotine dependence, unspecified, uncomplicated; F12.90 Cannabis use, unspecified, uncomplicated; Z79.899 Other long term (current) drug therapy; Z91.041 Radiographic dye allergy status; Z88.1 Allergy status to other antibiotic agents; Z88.8 Allergy status to other drugs, medicaments and biological substances
CPT/HCPCS: 80048; 80076; 80143; 80307; 82077; 82550; 84443; 85025; 87631; 93005; 93041; 94760; 96372; 96374; 99285; J1630; J2060

== ENCOUNTER 2023-01-25 14:41 | Emergency (ER) | payer OTHER | END 2023-01-25 14:45 | disposition left against medical advice (07) | LOC: M ED 14:41 → EDBD 14:41 → M ED 14:45 | DX: Z53.21 Procedure and treatment not carried out due to patient leaving prior to being seen by health care provider (principal) ==

== ENCOUNTER 2023-01-25 15:46 | Emergency (ER) | payer OTHER ==
[~2023-01-25] VITALS: Ht 165.1 cm; Wt 105.6 kg
[2023-01-25 15:47] VITALS: BP 126/76; TEMP 97.4; O2SAT 97
[2023-01-25] MEDS ORDERED: METHOCARBAMOL 1,000 MG/10 ML VIAL IM ONE (20:15)
== END 2023-01-25 20:48 | disposition home or self-care (01) ==
LOC: M ED 15:46
DX: S89.91XA Unspecified injury of right lower leg, initial encounter (principal); W19.XXXA Unspecified fall, initial encounter; Y92.008 Other place in unspecified non-institutional (private) residence as the place of occurrence of the external cause; E11.9 Type 2 diabetes mellitus without complications; I10 Essential (primary) hypertension; K21.9 Gastro-esophageal reflux disease without esophagitis; J44.9 Chronic obstructive pulmonary disease, unspecified; E78.5 Hyperlipidemia, unspecified; E66.9 Obesity, unspecified; F43.10 Post-traumatic stress disorder, unspecified; F41.9 Anxiety disorder, unspecified; F32.A Depression, unspecified; F17.200 Nicotine dependence, unspecified, uncomplicated; Z79.899 Other long term (current) drug therapy; Z91.041 Radiographic dye allergy status; Z88.1 Allergy status to other antibiotic agents; Z88.8 Allergy status to other drugs, medicaments and biological substances
CPT/HCPCS: 73564; 96372; 99284; J2800

== ENCOUNTER 2023-05-01 16:28 | Inpatient (IN) | payer MEDICAID, OTHER ==
[~2023-05-01] VITALS: Ht 165.1 cm; Wt 98.6 kg
[2023-05-01 17:44] LABS: HEMATOCRIT 46.5 % (36.0-47.0); HEMOGLOBIN 15.6 g/dl (12.0-15.5); MEAN CORPUSCULAR HEMOGLOBIN 33.3 pg (27.0-33.0); MEAN CORPUSCULAR HGB CONC 33.5 g/dl (32.0-36.5); MEAN CORPUSCULAR VOLUME 99.1 fl (80.0-96.0); PLATELET COUNT, AUTOMATED 525 10^3/uL (150-450); RED BLOOD COUNT 4.69 10^6/uL (4.00-5.40); WHITE BLOOD COUNT 13.3 10^3/uL (4.0-10.0)
[2023-05-01] MEDS: ACETAMINOPHEN TAB 650MG DOSE (2X325MG) PO ONE (17:51)
[2023-05-01] MEDS: diazePAM 5MG TABLET PO ONE (17:52)
[2023-05-01 18:16] LABS: AMPHETAMINES LEVEL URINE NEGATIVE (NEGATIVE); BARBITURATES URINE NEGATIVE (NEGATIVE); COCAINE METABOLITE URINE NEGATIVE (NEGATIVE); METHADONE URINE NEGATIVE (NEGATIVE)
[2023-05-01 18:17] LABS: BENZODIAZEPINES URINE NEGATIVE (NEGATIVE); OPIATES URINE NEGATIVE (NEGATIVE); PHENCYCLIDINE URINE NEGATIVE (NEGATIVE)
[2023-05-01 18:19] LABS: CANNABINOIDS URINE POSITIVE (NEGATIVE)
[2023-05-01 18:20] LABS: ALBUMIN 3.9 G/DL (3.2-5.2); ALKALINE PHOSPHATASE 118 U/L (46-116); ALT/SGPT 40 U/L (7.0-40); AST/SGOT 24 U/L (<34); BILIRUBIN,DIRECT 0.2 MG/DL (<0.4); BILIRUBIN,TOTAL 0.6 MG/DL (0.3-1.2); BLOOD UREA NITROGEN 12 MG/DL (9-23); CALCIUM LEVEL 8.5 MG/DL (8.5-10.1); CARBON DIOXIDE LEVEL 20 MMOL/L (20-31); CHLORIDE LEVEL 109 MMOL/L (98-107); CREATININE FOR GFR 0.67 MG/DL (0.55-1.30); GLOMERULAR FILTRATION RATE > 60.0 (>58); GLUCOSE, FASTING 119 MG/DL (60-100); SALICYLATE LEVEL < 3.0 MG/DL (<30); SODIUM LEVEL 139 MMOL/L (136-145); TOTAL PROTEIN 7.6 G/DL (5.7-8.2)
[2023-05-01 18:24] LABS: THYROID STIMULATING HORMONE 1.922 uIU/ML (0.55-4.78)
[2023-05-01 18:46] LABS: ETHYL ALCOHOL (ETHANOL) 0.314 % (0.000-0.010)
[2023-05-01] MEDS: THIAMINE 100 MG TAB PO SCH (23:15)
[2023-05-02] MEDS: PRAZOSIN 1 MG CAP PO ONE (02:28)
[2023-05-02] MEDS: LORazepam 2 MG TAB PO PRN ×2 (06:23→22:16)
[2023-05-02] MEDS ORDERED: ARIP1TAB6 PO (08:02)
[2023-05-02] MEDS ORDERED: CETI-25 PO (08:02)
[2023-05-02] MEDS ORDERED: MUCI1TAB16 PO (08:03)
[2023-05-02] MEDS ORDERED: HOME MED LIST COMPLETE! XX SCH (08:10)
[2023-05-02] MEDS: FOLIC ACID 1MG TAB PO SCH (08:37)
[2023-05-02] MEDS: MULTIVITAMINS/MINERALS THERAP 1 TAB PO SCH (08:37)
[2023-05-02 08:42] LABS: HCG, SERUM QUALITATIVE NEGATIVE (NEGATIVE)
[2023-05-02] MEDS ORDERED: ACETAMINOPHEN TAB 650MG DOSE (2X325MG) PO PRN (13:15)
[2023-05-02] MEDS ORDERED: guaiFENesin ER TABLET 600 MG TAB PO PRN (13:15)
[2023-05-02] MEDS: lisinopriL 5 MG TAB PO SCH (15:45)
[2023-05-02] MEDS: CETIRIZINE (ZyrTEC) 10 MG TAB PO SCH (15:45)
[2023-05-02] MEDS: NICOTINE 21MG/24HR 1 EA TRANSDERMAL TD SCH (15:46)
[2023-05-02] MEDS: CitaloPRAM (CeleXA) 20 MG TAB PO SCH (15:46)
[2023-05-02 18:01] VITALS: BP 163/90
[2023-05-02] MEDS: PREGABALIN 75 MG CAP(LYRICA) PO SCH (18:08)
[2023-05-02] MEDS: IBUPROFEN 400MG TAB PO PRN (18:09)
[2023-05-02 18:30] VITALS: BP 145/93; TEMP 97.2; O2SAT 98
[2023-05-02] MEDS: THIAMINE 100 MG TAB PO SCH (20:06)
[2023-05-02] MEDS: traZODone 50 MG TAB PO PRN (20:06)
[2023-05-02] MEDS: MUPIROCIN 2% OINT 22 GM TUBE TOP SCH (20:10)
[2023-05-02] MEDS: PRAZOSIN 1 MG CAP PO SCH (20:37)
[2023-05-02 20:40] VITALS: BP 140/98
[2023-05-02] MEDS ORDERED: PREGABALIN 75 MG CAP(LYRICA) PO SCH (21:00)
[2023-05-02 22:06] VITALS: BP 174/108
[2023-05-03 03:38] VITALS: BP 125/81
[2023-05-03 06:11] VITALS: BP 112/70; TEMP 97.9
[2023-05-03] MEDS: LACTOBACILLUS ACIDOPHILUS CAP (BACID) PO SCH (07:51)
[2023-05-03 08:15] VITALS: BP 132/92
[2023-05-03] MEDS: FOLIC ACID 1MG TAB PO SCH (08:18)
[2023-05-03] MEDS: MULTIVITAMINS/MINERALS THERAP 1 TAB PO SCH (08:18)
[2023-05-03] MEDS ORDERED: CETIRIZINE (ZyrTEC) 10 MG TAB PO SCH (09:00)
[2023-05-03] MEDS ORDERED: CitaloPRAM (CeleXA) 20 MG TAB PO SCH (09:00)
[2023-05-03] MEDS ORDERED: lisinopriL 5 MG TAB PO SCH (09:00)
[2023-05-03] MEDS: AMPHETAMINE/DEXTROAMPHETAMINE 5 MG *ER* CAPSULE (ADDERALL XR) PO SCH (09:24)
[2023-05-03] MEDS: PREGABALIN 75 MG CAP(LYRICA) PO SCH (09:24)
[2023-05-03] MEDS: clonazePAM 1 MG TAB PO PRN (11:46)
[2023-05-03 13:00] VITALS: BP 132/82
[2023-05-03 14:48] VITALS: BP 132/95; TEMP 98.2; O2SAT 98
[2023-05-03] MEDS: MAALOX 30 ML SUSP *UDC PO PRN (18:36)
[2023-05-03] MEDS ORDERED: DICYCLOMINE 10 MG CAP PO PRN (19:50)
[2023-05-03] MEDS: FIBER-CON 625 MG TAB PO SCH (20:36)
[2023-05-03] MEDS: DICYCLOMINE 10 MG CAP PO ONE (20:37)
[2023-05-03] MEDS: MOM 30ML SUSPENSION UDC PO PRN (20:41)
[2023-05-03] MEDS ORDERED: KETOROLAC TROMETHAMINE 10 MG TAB PO ONE (22:00)
[2023-05-03 22:23] VITALS: BP 128/87
[2023-05-04] MEDS: diphenhydrAMINE 25MG CAP PO PRN (01:47)
[2023-05-04 06:34] VITALS: BP 127/93
[2023-05-04] MEDS: DICYCLOMINE 10 MG CAP PO SCH (06:42)
[2023-05-04 18:30] VITALS: BP 122/82; TEMP 98; O2SAT 99
[2023-05-04 20:56] VITALS: BP 188/128
[2023-05-04] MEDS: PRAZOSIN 1 MG CAP PO SCH (20:58)
[2023-05-05 06:21] VITALS: BP 130/108
[2023-05-05 06:50] VITALS: BP 130/108; TEMP 97.2; O2SAT 95
[2023-05-05 07:36] VITALS: BP 162/107; TEMP 97.6; O2SAT 100
[2023-05-05 08:40] VITALS: BP 145/92
[2023-05-05 17:33] VITALS: BP 122/70; TEMP 97.6; O2SAT 100
[2023-05-05 21:30] VITALS: BP 142/89
[2023-05-06 06:34] VITALS: BP 111/85; TEMP 96.9; O2SAT 100
[2023-05-06 06:51] VITALS: BP 111/85
[2023-05-06 08:07] VITALS: BP 128/84
[2023-05-06 08:08] VITALS: BP 128/84
[2023-05-06] MEDS ORDERED: DICY1CAP8 PO (08:37)
[2023-05-06] MEDS ORDERED: Multivitamins PO (08:37)
[2023-05-06] MEDS ORDERED: CETI-25 PO (08:37)
[2023-05-06] MEDS ORDERED: CLON1TAB8 PO (08:37)
[2023-05-06] MEDS ORDERED: AMPH1CAP5 PO (08:37)
[2023-05-06] MEDS ORDERED: FOLI1TAB11 PO (08:37)
[2023-05-06] MEDS ORDERED: ARIP1TAB6 PO (08:37)
[2023-05-06] MEDS ORDERED: FIBE62TA PO (08:37)
[2023-05-06] MEDS ORDERED: PREG150C2 PO (08:37)
[2023-05-06] MEDS ORDERED: CITA20TA7 PO (08:37)
[2023-05-06] MEDS ORDERED: MUPI2OI TOP (08:37)
[2023-05-06] MEDS ORDERED: RISATAB3 PO (08:37)
[2023-05-06] MEDS ORDERED: PRAZ5CAP PO (08:37)
[2023-05-06] MEDS ORDERED: NICO21PAT TD (08:37)
== END 2023-05-06 11:52 | disposition home or self-care (01) | DRG 755 ==
LOC: M ED 16:28 → M ED INP 05-02 13:13 → M PSY 05-02 17:08
PROVIDERS: ADMIT Student in an Organized Health Care Education/Training Program; ATTEND Student in an Organized Health Care Education/Training Program
DX: F43.10 Post-traumatic stress disorder, unspecified (principal); F10.229 Alcohol dependence with intoxication, unspecified; F31.9 Bipolar disorder, unspecified; F90.9 Attention-deficit hyperactivity disorder, unspecified type; F40.00 Agoraphobia, unspecified; Z56.0 Unemployment, unspecified; Z81.8 Family history of other mental and behavioral disorders; R45.851 Suicidal ideations; A08.11 Acute gastroenteropathy due to Norwalk agent; F10.24 Alcohol dependence with alcohol-induced mood disorder; I10 Essential (primary) hypertension; G62.9 Polyneuropathy, unspecified; Z79.899 Other long term (current) drug therapy; Z88.1 Allergy status to other antibiotic agents; Z88.8 Allergy status to other drugs, medicaments and biological substances; Z91.041 Radiographic dye allergy status

== ENCOUNTER 2023-06-25 01:10 | Inpatient (IN) | payer MEDICAID, OTHER ==
[~2023-06-25] VITALS: Ht 167.6 cm; Wt 101.4 kg
[~2023-06-25 01:10] MED LIST changes: +ARIP1TAB6 PO; +BUPR-597 PO; -BUPR300T92 PO; +CETI-25 PO; +DICY1CAP8 PO; +DOXY-323; -DOXY-443; +FIBE62TA PO; +FOLI1TAB11 PO; +LYRI150C PO; +MUCI1TAB16 PO; +MUPI2OI TOP; +Multivitamins PO; +NICO21PAT TD; +RISATAB3 PO
[2023-06-25 02:04] LABS: HEMATOCRIT 39.5 % (36.0-47.0); HEMOGLOBIN 13.1 g/dl (12.0-15.5); MEAN CORPUSCULAR HEMOGLOBIN 33.7 pg (27.0-33.0); MEAN CORPUSCULAR HGB CONC 33.2 g/dl (32.0-36.5); MEAN CORPUSCULAR VOLUME 101.5 fl (80.0-96.0); PLATELET COUNT, AUTOMATED 534 10^3/uL (150-450); RED BLOOD COUNT 3.89 10^6/uL (4.00-5.40); WHITE BLOOD COUNT 12.2 10^3/uL (4.0-10.0)
[2023-06-25 02:27] LABS: ETHYL ALCOHOL (ETHANOL) 0.164 % (0.000-0.010)
[2023-06-25 02:29] LABS: ALBUMIN 3.7 G/DL (3.2-5.2); ALKALINE PHOSPHATASE 101 U/L (46-116); ALT/SGPT 50 U/L (7.0-40); AST/SGOT 33 U/L (<34); BILIRUBIN,DIRECT 0.2 MG/DL (<0.4); BILIRUBIN,TOTAL 0.4 MG/DL (0.3-1.2); BLOOD UREA NITROGEN 10 MG/DL (9-23); CALCIUM LEVEL 8.9 MG/DL (8.5-10.1); CARBON DIOXIDE LEVEL 25 MMOL/L (20-31); CHLORIDE LEVEL 108 MMOL/L (98-107); GLOMERULAR FILTRATION RATE > 60.0 (>58); GLUCOSE, FASTING 93 MG/DL (60-100); SALICYLATE LEVEL < 3.0 MG/DL (<30); SODIUM LEVEL 140 MMOL/L (136-145); TOTAL PROTEIN 7.1 G/DL (5.7-8.2)
[2023-06-25 02:31] LABS: THYROID STIMULATING HORMONE 2.357 uIU/ML (0.55-4.78)
[2023-06-25] MEDS ORDERED: CITA40TA6 PO (08:18)
[2023-06-25] MEDS ORDERED: CETI-24 PO (08:18)
[2023-06-25] MEDS ORDERED: THERTAB52 PO (08:18)
[2023-06-25] MEDS ORDERED: FIBE625T PO (08:18)
[2023-06-25] MEDS ORDERED: LYRI150C PO (08:20)
[2023-06-25] MEDS ORDERED: LACT1CAP53 PO (08:20)
[2023-06-25] MEDS ORDERED: FOLI1TAB11 PO (08:24)
[2023-06-25] MEDS ORDERED: DICY1CAP8 PO (08:24)
[2023-06-25] MEDS ORDERED: MUPI2OI TOP (08:24)
[2023-06-25] MEDS ORDERED: KLON1TAB13 PO (08:24)
[2023-06-25] MEDS ORDERED: ADDE30CA3 PO (08:25)
[2023-06-25] MEDS ORDERED: HOME MED LIST COMPLETE! XX SCH (08:30)
[2023-06-25 09:18] LABS: HCG, SERUM QUANTITATIVE < 2.6 MIU/ML (<4.2)
[2023-06-25 09:27] LABS: BARBITURATES URINE NEGATIVE (NEGATIVE); COCAINE METABOLITE URINE NEGATIVE (NEGATIVE)
[2023-06-25 09:28] LABS: BENZODIAZEPINES URINE NEGATIVE (NEGATIVE); METHADONE URINE NEGATIVE (NEGATIVE); OPIATES URINE NEGATIVE (NEGATIVE); PHENCYCLIDINE URINE NEGATIVE (NEGATIVE)
[2023-06-25 09:41] LABS: AMPHETAMINES LEVEL URINE POSITIVE (NEGATIVE); CANNABINOIDS URINE POSITIVE (NEGATIVE)
[2023-06-25] MEDS: lisinopriL 5 MG TAB PO SCH (11:36)
[2023-06-25] MEDS: ADDERALL 5 MG TAB PO ONE (11:36)
[2023-06-25] MEDS: CETIRIZINE (ZyrTEC) 10 MG TAB PO SCH (11:37)
[2023-06-25] MEDS: clonazePAM 1 MG TAB PO PRN (11:40)
[2023-06-25] MEDS: ACETAMINOPHEN TAB 650MG DOSE (2X325MG) PO ONE (13:58)
[2023-06-25] MEDS ORDERED: MOM 30ML SUSPENSION UDC PO PRN (14:45)
[2023-06-25] MEDS ORDERED: MAALOX 30 ML SUSP *UDC PO PRN (14:45)
[2023-06-25 17:15] VITALS: BP 132/88; TEMP 97.9; O2SAT 100
[2023-06-25] MEDS: diphenhydrAMINE 25MG CAP PO PRN (21:04)
[2023-06-25] MEDS: traZODone 50 MG TAB PO PRN (21:05)
[2023-06-25] MEDS: PREGABALIN 75 MG CAP(LYRICA) PO PRN (21:05)
[2023-06-25] MEDS: IBUPROFEN 400MG TAB PO PRN (23:03)
[2023-06-26 06:40] VITALS: BP 114/66; TEMP 99; O2SAT 95
[2023-06-26] MEDS ORDERED: LORazepam 2 MG TAB PO PRN (08:50)
[2023-06-26 08:55] VITALS: BP 114/66
[2023-06-26] MEDS: clonazePAM 1 MG TAB PO ONE (10:01)
[2023-06-26] MEDS: THIAMINE 100 MG TAB PO SCH (10:06)
[2023-06-26] MEDS: CitaloPRAM (CeleXA) 20 MG TAB PO SCH (10:07)
[2023-06-26] MEDS: FOLIC ACID 1MG TAB PO SCH (10:07)
[2023-06-26] MEDS: AMPHETAMINE/DEXTROAMPHETAMINE 5 MG *ER* CAPSULE (ADDERALL XR) PO SCH (10:07)
[2023-06-26] MEDS: MULTIVITAMINS/MINERALS THERAP 1 TAB PO SCH (10:07)
[2023-06-26] MEDS: CETIRIZINE (ZyrTEC) 10 MG TAB PO SCH (11:23)
[2023-06-26] MEDS: FIBER-CON 625 MG TAB PO SCH (11:23)
[2023-06-26] MEDS: DICYCLOMINE 10 MG CAP PO SCH (11:24)
[2023-06-26 18:02] VITALS: BP 158/78
[2023-06-26 18:27] VITALS: BP 158/82; TEMP 98.3
[2023-06-26] MEDS: PRAZOSIN 1 MG CAP PO SCH (20:46)
[2023-06-26 21:00] VITALS: BP 133/92
[2023-06-27 06:38] VITALS: BP 125/65; TEMP 98.1; O2SAT 100
[2023-06-27 06:45] VITALS: BP 125/65
[2023-06-27] MEDS: clonazePAM 1 MG TAB PO SCH (09:51)
[2023-06-27] MEDS: PREGABALIN 75 MG CAP(LYRICA) PO SCH (11:11)
[2023-06-27 18:32] VITALS: BP 138/84; TEMP 97.9
[2023-06-27] MEDS: traZODone 100 MG TAB PO PRN (20:21)
[2023-06-28 06:43] VITALS: BP 111/50; TEMP 98; O2SAT 95
[2023-06-28] MEDS: AMPHETAMINE/DEXTROAMPHETAMINE 5 MG *ER* CAPSULE (ADDERALL XR) PO SCH (09:32)
[2023-06-28 16:41] VITALS: BP 130/88; TEMP 98.2; O2SAT 99
[2023-06-28 20:40] VITALS: BP 130/81
[2023-06-29 06:36] VITALS: BP 104/56; TEMP 97.8; O2SAT 98
[2023-06-29 16:52] VITALS: BP 136/88; TEMP 98.3; O2SAT 98
[2023-06-30 06:19] VITALS: BP 130/64; TEMP 98; O2SAT 97
[2023-06-30] MEDS: NICOTINE 14 MG/24 HR TRANSDERMAL TD SCH (10:16)
[2023-06-30] MEDS: LORazepam 1 MG TAB PO SCH (14:34)
[2023-06-30 16:18] VITALS: BP 141/90; TEMP 98; O2SAT 98
[2023-06-30 21:26] VITALS: BP 126/87
[2023-06-30] MEDS: OMEPRAZOLE 20MG CAP PO SCH (21:29)
[2023-07-01 06:16] VITALS: BP 120/78; TEMP 96.7; O2SAT 96
[2023-07-01] MEDS: LIDOCAINE 5% (LIDODERM) PATCH TD SCH (14:57)
[2023-07-01] MEDS: traMADol 50 MG TAB PO ONE (16:16)
[2023-07-01 18:19] VITALS: BP 142/77; TEMP 97.2
[2023-07-02 06:34] VITALS: BP 123/79; TEMP 97.4; O2SAT 97
[2023-07-02 18:58] VITALS: BP 146/86; TEMP 98.1
[2023-07-02] MEDS: ACETAMINOPHEN TAB 650MG DOSE (2X325MG) PO PRN (21:50)
[2023-07-03 06:13] VITALS: BP 122/81; TEMP 98.8; O2SAT 95
[2023-07-03] MEDS: lisinopriL 5 MG TAB PO SCH (14:38)
[2023-07-03 18:17] VITALS: BP 122/81; TEMP 97.4
[2023-07-04 06:09] VITALS: BP 111/61; TEMP 97.5; O2SAT 98
[2023-07-04] MEDS ORDERED: TRAZ-257 PO (08:07)
[2023-07-04] MEDS ORDERED: CETI-24 PO (08:07)
[2023-07-04] MEDS ORDERED: ADDE30CA3 PO (08:07)
[2023-07-04] MEDS ORDERED: CITA40TA6 PO (08:07)
[2023-07-04] MEDS ORDERED: LIDO5TD TD (08:07)
[2023-07-04] MEDS ORDERED: FIBE625T PO (08:07)
[2023-07-04] MEDS ORDERED: DICY1CAP8 PO (08:07)
[2023-07-04] MEDS ORDERED: NICO14PA TD (08:07)
[2023-07-04] MEDS ORDERED: KLON1TAB13 PO (08:07)
[2023-07-04 08:21] VITALS: BP 108/65
== END 2023-07-04 09:13 | disposition home or self-care (01) | DRG 755 ==
LOC: M ED 01:10 → M ED INP 14:44 → M PSY 17:13
PROVIDERS: ADMIT Student in an Organized Health Care Education/Training Program; ATTEND Student in an Organized Health Care Education/Training Program
DX: F43.23 Adjustment disorder with mixed anxiety and depressed mood (principal); E66.9 Obesity, unspecified; F32.A Depression, unspecified; F43.10 Post-traumatic stress disorder, unspecified; I50.9 Heart failure, unspecified; J44.9 Chronic obstructive pulmonary disease, unspecified; F17.210 Nicotine dependence, cigarettes, uncomplicated; F10.10 Alcohol abuse, uncomplicated; R45.850 Homicidal ideations; K50.90 Crohn's disease, unspecified, without complications; G47.33 Obstructive sleep apnea (adult) (pediatric); I11.0 Hypertensive heart disease with heart failure; F31.9 Bipolar disorder, unspecified; F41.9 Anxiety disorder, unspecified; M79.2 Neuralgia and neuritis, unspecified; Z79.899 Other long term (current) drug therapy; Z88.1 Allergy status to other antibiotic agents; Z91.041 Radiographic dye allergy status; Z56.0 Unemployment, unspecified; Z88.8 Allergy status to other drugs, medicaments and biological substances; F43.0 Acute stress reaction; F90.9 Attention-deficit hyperactivity disorder, unspecified type

== ENCOUNTER 2023-09-28 22:08 | Emergency (ER) | payer OTHER, MEDICAID ==
[~2023-09-28] VITALS: Ht 160 cm; Wt 109.4 kg
[~2023-09-28 22:08] MED LIST changes: +ADDE30CA3 PO; +CETI-24 PO; +CITA40TA6 PO; +FIBE625T PO; +KLON1TAB13 PO; +LACT1CAP53 PO; +LIDO5TD TD; +NICO14PA TD; +ONDA-282 PO; -ONDA4TAB6 PO; +THERTAB52 PO; +TRAZ-257 PO
[2023-09-28] MEDS: ACETAMINOPHEN TAB 650MG DOSE (2X325MG) PO ONE (22:43)
[2023-09-28 22:47] LABS: INR 1.01; PARTIAL THROMBOPLASTIN TIME 26.7 SECONDS (24.8-34.2)
[2023-09-28 22:52] LABS: HEMATOCRIT 38.7 % (36.0-47.0); HEMOGLOBIN 12.9 g/dl (12.0-15.5); MEAN CORPUSCULAR HEMOGLOBIN 32.7 pg (27.0-33.0); MEAN CORPUSCULAR HGB CONC 33.3 g/dl (32.0-36.5); MEAN CORPUSCULAR VOLUME 98.2 fl (80.0-96.0); PLATELET COUNT, AUTOMATED 443 10^3/uL (150-450); RED BLOOD COUNT 3.94 10^6/uL (4.00-5.40); WHITE BLOOD COUNT 11.3 10^3/uL (4.0-10.0)
[2023-09-28] MEDS: NS 1,000 ML IV SCH (23:05)
[2023-09-28] MEDS: NITROGLYCERIN 0.4MG SUBL TABLET SL PRN (23:10)
[2023-09-28 23:19] LABS: ALBUMIN 3.3 G/DL (3.2-5.2); ALKALINE PHOSPHATASE 97 U/L (46-116); ALT/SGPT 58 U/L (7.0-40); AST/SGOT 42 U/L (<34); BILIRUBIN,DIRECT < 0.1 MG/DL (<0.4); BILIRUBIN,TOTAL 0.2 MG/DL (0.3-1.2); BLOOD UREA NITROGEN 21 MG/DL (9-23); CALCIUM LEVEL 8.4 MG/DL (8.5-10.1); CARBON DIOXIDE LEVEL 28 MMOL/L (20-31); CHLORIDE LEVEL 104 MMOL/L (98-107); CK-MB VALUE MASS 1.7 NG/ML (<3.6); CPK CREATINE PHOSPHOKINASE 81 U/L (34-145); CREATININE FOR GFR 0.99 MG/DL (0.55-1.30); FREE T4 0.96 NG/DL (0.89-1.76); GLOMERULAR FILTRATION RATE > 60.0 (>58); GLUCOSE, FASTING 167 MG/DL (60-100); MB/CK RELATIVE INDEX 2.09 (< OR =4); POTASSIUM SERUM 5.7 MMOL/L (3.5-5.1); SODIUM LEVEL 134 MMOL/L (136-145); THYROID STIMULATING HORMONE 1.276 uIU/ML (0.55-4.78); TOTAL PROTEIN 6.8 G/DL (5.7-8.2)
[2023-09-28 23:20] VITALS: BP 101/60
[2023-09-28 23:49] LABS: ATYPICAL LYMPH 4 % (0-5); EOSINOPHILS 4 % (0-3); LYMPHOCYTES 35 % (16-44); MONOCYTES 6 % (0-5); NEUTROPHILS 50 % (28-66); PLATELET ESTIMATE NORMAL (NORMAL)
[2023-09-28 23:50] LABS: ANISOCYTOSIS 1+
[2023-09-29] MEDS: MORPHINE 4 MG/ML 1ML VIAL IV ONE
[2023-09-29 00:53] LABS: CK-MB VALUE MASS 1.5 NG/ML (<3.6)
[2023-09-29 00:54] LABS: CPK CREATINE PHOSPHOKINASE 66 U/L (34-145); MB/CK RELATIVE INDEX 2.27 (< OR =4)
[2023-09-29 01:13] VITALS: TEMP 96.3
[2023-09-29 01:23] VITALS: O2SAT 99
[2023-09-29 01:31] VITALS: BP 104/55
== END 2023-09-29 01:49 | disposition left against medical advice (07) ==
LOC: EDBD 22:08 → M ED 22:08
DX: R07.9 Chest pain, unspecified (principal); R00.0 Tachycardia, unspecified; I50.22 Chronic systolic (congestive) heart failure; J44.9 Chronic obstructive pulmonary disease, unspecified; F32.A Depression, unspecified; F43.10 Post-traumatic stress disorder, unspecified; F17.210 Nicotine dependence, cigarettes, uncomplicated; Z88.1 Allergy status to other antibiotic agents; Z91.041 Radiographic dye allergy status; Z79.810 Long term (current) use of selective estrogen receptor modulators (SERMs); Z79.899 Other long term (current) drug therapy; Z53.9 Procedure and treatment not carried out, unspecified reason

== ENCOUNTER 2023-12-09 16:30 | Emergency (ER) | payer OTHER ==
[~2023-12-09] VITALS: Ht 165.1 cm; Wt 97.7 kg
[~2023-12-09 16:30] MED LIST changes: -DOXY-323; +DOXY-441; +GABA-1635 PO; -GABA800T4 PO
[2023-12-09 17:29] LABS: HEMATOCRIT 43.1 % (36.0-47.0); HEMOGLOBIN 14.5 g/dl (12.0-15.5); MEAN CORPUSCULAR HGB CONC 33.6 g/dl (32.0-36.5); MEAN CORPUSCULAR VOLUME 98.2 fl (80.0-96.0); PLATELET COUNT, AUTOMATED 496 10^3/uL (150-450); RED BLOOD COUNT 4.39 10^6/uL (4.00-5.40); WHITE BLOOD COUNT 17.4 10^3/uL (4.0-10.0)
[2023-12-09 17:57] LABS: AMPHETAMINES LEVEL URINE NEGATIVE (NEGATIVE); BARBITURATES URINE NEGATIVE (NEGATIVE); BENZODIAZEPINES URINE NEGATIVE (NEGATIVE); COCAINE METABOLITE URINE NEGATIVE (NEGATIVE); METHADONE URINE NEGATIVE (NEGATIVE); OPIATES URINE NEGATIVE (NEGATIVE); PHENCYCLIDINE URINE NEGATIVE (NEGATIVE)
[2023-12-09 17:59] LABS: ETHYL ALCOHOL (ETHANOL) 0.276 % (0.000-0.010)
[2023-12-09 18:01] LABS: ALBUMIN 3.5 G/DL (3.2-5.2); ALKALINE PHOSPHATASE 83 U/L (46-116); ALT/SGPT 30 U/L (7.0-40); AST/SGOT 15 U/L (<34); BILIRUBIN,DIRECT 0.2 MG/DL (<0.4); BILIRUBIN,TOTAL 0.6 MG/DL (0.3-1.2); BLOOD UREA NITROGEN 12 MG/DL (9-23); CALCIUM LEVEL 9.3 MG/DL (8.5-10.1); CARBON DIOXIDE LEVEL 17 MMOL/L (20-31); CHLORIDE LEVEL 110 MMOL/L (98-107); CREATININE FOR GFR 0.76 MG/DL (0.55-1.30); GLOMERULAR FILTRATION RATE > 60.0 (>58); GLUCOSE, FASTING 115 MG/DL (60-100); POTASSIUM SERUM 3.8 MMOL/L (3.5-5.1); SALICYLATE LEVEL < 3.0 MG/DL (<30); SODIUM LEVEL 137 MMOL/L (136-145); TOTAL PROTEIN 8.2 G/DL (5.7-8.2)
[2023-12-09 18:04] LABS: CANNABINOIDS URINE POSITIVE (NEGATIVE)
[2023-12-09 18:04] LABS: THYROID STIMULATING HORMONE 2.274 uIU/ML (0.55-4.78)
[2023-12-09 18:05] LABS: HCG, SERUM QUALITATIVE NEGATIVE (NEGATIVE)
[2023-12-09] MEDS: BACITRACIN OINTMENT 30GM TUBE TOP PRN (19:03)
[2023-12-09] MEDS: IBUPROFEN 600MG TAB PO ONE (19:03)
[2023-12-09] MEDS: CelecoXIB 400 MG CAP PO ONE (21:11)
[2023-12-09] MEDS: diphenhydrAMINE 50MG CAP PO ONE (21:11)
[2023-12-10] MEDS: ACETAMINOPHEN 325 MG TAB PO ONE (05:55)
[2023-12-10] MEDS: IBUPROFEN 800 MG TAB PO ONE (05:55)
[2023-12-10 08:39] VITALS: BP 135/90; TEMP 98.6; O2SAT 99
== END 2023-12-10 08:41 | disposition home or self-care (01) ==
LOC: EDBD 16:30 → M ED 16:30
DX: F10.120 Alcohol abuse with intoxication, uncomplicated (principal); S06.0X0A Concussion without loss of consciousness, initial encounter; S00.83XA Contusion of other part of head, initial encounter; Y92.9 Unspecified place or not applicable; Y93.9 Activity, unspecified; Y99.9 Unspecified external cause status; E11.9 Type 2 diabetes mellitus without complications; I10 Essential (primary) hypertension; J44.9 Chronic obstructive pulmonary disease, unspecified; F17.210 Nicotine dependence, cigarettes, uncomplicated; Z88.1 Allergy status to other antibiotic agents; Z91.041 Radiographic dye allergy status; Z79.810 Long term (current) use of selective estrogen receptor modulators (SERMs); Z79.899 Other long term (current) drug therapy

== ENCOUNTER → 2024-07-07 | Outpatient (REF) | payer OTHER ==
[~2024-07-07] MED LIST changes: -AMBI10TA PO; -BUPR-597 PO; +BUPR-766 PO; -NYST-13 TOP; +NYST0.1C TOP; +ZOLP-533 PO
== END ==
LOC: M LAB REF 12:13
PROVIDERS: ATTEND Physician Assistant
DX: R30.0 Dysuria (principal)

== ENCOUNTER → 2024-08-27 | Outpatient (REF) | payer OTHER | LOC: M LAB REF 11:51 | PROVIDERS: ATTEND Family Medicine Addiction Medicine | DX: N39.0 Urinary tract infection, site not specified (principal) ==

== ENCOUNTER 2024-09-15 13:44 | Emergency (ER) | payer OTHER, SELFPAY ==
[~2024-09-15] VITALS: Ht 157.5 cm; Wt 109.1 kg
[2024-09-15 14:00] VITALS: BP 107/56
[2024-09-15] MEDS ORDERED: NARC1SPR NARES (15:43)
[2024-09-15] MEDS ORDERED: PERC5TAB12 PO (15:43)
[2024-09-15 15:59] VITALS: TEMP 97.9
[2024-09-15 16:02] VITALS: O2SAT 99
[2024-09-15] MEDS: PERCOCET 5MG/325MG TAB PO ONE (16:02)
== END 2024-09-15 16:14 | disposition home or self-care (01) ==
LOC: M ED 13:44 → EDBD 13:44 → M ED 16:14
DX: S30.0XXA Contusion of lower back and pelvis, initial encounter (principal); Y92.9 Unspecified place or not applicable; Y93.9 Activity, unspecified; Y99.9 Unspecified external cause status; Y04.8XXA Assault by other bodily force, initial encounter; I50.22 Chronic systolic (congestive) heart failure; I11.0 Hypertensive heart disease with heart failure; E11.9 Type 2 diabetes mellitus without complications; J44.9 Chronic obstructive pulmonary disease, unspecified; K21.9 Gastro-esophageal reflux disease without esophagitis; F10.10 Alcohol abuse, uncomplicated; F19.10 Other psychoactive substance abuse, uncomplicated; Z88.1 Allergy status to other antibiotic agents; Z91.041 Radiographic dye allergy status; Z79.899 Other long term (current) drug therapy; Z79.810 Long term (current) use of selective estrogen receptor modulators (SERMs)

== ENCOUNTER 2024-10-15 19:25 | Inpatient (IN) | payer OTHER ==
[~2024-10-15] VITALS: Ht 160 cm; Wt 106.9 kg
[~2024-10-15 19:25] MED LIST changes: -IBUP-1022 PO; +IBUP600T42 PO; +NARC1SPR NARES
[2024-10-15 19:59] LABS: VENOUS BASE EXCESS -8.3 (-2.0-2.0); VENOUS HCO3 18.3 MMOL/L (23.0-27.0); VENOUS O2 SATURATION 55.2 % (60.0-80.0); VENOUS PARTIAL PRESSURE CO2 41.8 mmHg (38.0-50.0); VENOUS PARTIAL PRESSURE O2 33.6 mmHg (30.0-50.0); VENOUS PH 7.260 UNITS (7.330-7.430); VENOUS STANDARD HCO3 16.9 MMOL/L; VENOUS TOTAL CO2 19.6 MMOL/L (24.0-28.0)
[2024-10-15 20:04] LABS: BASO # 0.1 10^3/uL (0.0-0.2); BASO % 0.8 % (0.0-1.0); EOS # 0.1 10^3/uL (0.0-0.5); EOS % 1.1 % (0.0-3.0); LYMPH # 2.8 10^3/uL (1.5-5.0); LYMPH % 28.9 % (24.0-44.0); MONO # 0.5 10^3/uL (0.0-0.8); MONO % 5.1 % (2.0-8.0); NEUTROPHILS # 6.2 10^3/uL (1.5-8.5); NEUTROPHILS % 63.8 % (36.0-66.0); PLATELET COUNT, AUTOMATED 470 10^3/uL (150-450)
[2024-10-15] MEDS: NS (Normal Saline) 0.9% 1,000 ML IV ONE (20:12)
[2024-10-15 20:30] LABS: ETHYL ALCOHOL (ETHANOL) 0.250 % (0.000-0.010)
[2024-10-15 20:31] LABS: CK-MB VALUE MASS 1.2 NG/ML (<3.6)
[2024-10-15 20:32] LABS: SALICYLATE LEVEL < 3.0 MG/DL (<30)
[2024-10-15 20:41] LABS: ALT/SGPT 57 U/L (7.0-40); AST/SGOT 36 U/L (<34); CALCIUM LEVEL 8.9 MG/DL (8.5-10.1); CARBON DIOXIDE LEVEL 19 MMOL/L (20-31); CHLORIDE LEVEL 106 MMOL/L (98-107); CPK CREATINE PHOSPHOKINASE 56 U/L (34-145); CREATININE FOR GFR 0.71 MG/DL (0.55-1.30); GLOMERULAR FILTRATION RATE > 90.0 (>58); MB/CK RELATIVE INDEX 2.14 (< OR =4); POTASSIUM SERUM 4.3 MMOL/L (3.5-5.1); SODIUM LEVEL 142 MMOL/L (136-145)
[2024-10-15] MEDS: HumuLIN R (REGULAR) INSULIN (NovoLIN R) **100 U/ML** PER UNIT IV ONE (21:20)
[2024-10-15 21:43] LABS: KETONE, URINE AUTO RFX 1+ mg/dL (NEGATIVE); LEUKOCYTE ESTERASE UR AUTO RFX NEGATIVE (NEGATIVE); NITRITE, URINE AUTO RFX NEGATIVE (NEGATIVE); RBC, URINE AUTO RFX 0 /HPF (0-3); SQUAM EPITHELIAL CELL UR AURFX 1 /HPF (0-6); WBC, URINE AUTO RFX 0 /HPF (0-3)
[2024-10-15 21:52] LABS: ACETONE/KETONE 0.47 MMOL/L (0.02-0.27)
[2024-10-15 22:05] LABS: AMPHETAMINES LEVEL URINE NEGATIVE (NEGATIVE); BARBITURATES URINE NEGATIVE (NEGATIVE); BENZODIAZEPINES URINE NEGATIVE (NEGATIVE); COCAINE METABOLITE URINE NEGATIVE (NEGATIVE); METHADONE URINE NEGATIVE (NEGATIVE); OPIATES URINE NEGATIVE (NEGATIVE); PHENCYCLIDINE URINE NEGATIVE (NEGATIVE)
[2024-10-15 22:10] LABS: CANNABINOIDS URINE POSITIVE (NEGATIVE)
[2024-10-15] MEDS ORDERED: INSULIN IV RATE CHANGE DOCUMENTATION ML/HR XX SCH (23:10)
[2024-10-16] VITALS (9 sets, daily range): BP systolic 118–141; BP diastolic 65–98; TEMP 97.7–98.8; O2SAT 94–98
[2024-10-16] MEDS: NS (Normal Saline) 0.9% 1,000 ML IV ONE (00:31)
[2024-10-16] MEDS: INSULIN REGULAR IN 0.9 % NACL 100 UNIT in IV 1 EA IV SCH (00:39)
[2024-10-16 00:48] LABS: VENOUS BASE EXCESS -5.3 (-2.0-2.0); VENOUS HCO3 20.2 MMOL/L (23.0-27.0); VENOUS O2 SATURATION 76.8 % (60.0-80.0); VENOUS PARTIAL PRESSURE CO2 39.4 mmHg (38.0-50.0); VENOUS PARTIAL PRESSURE O2 44.5 mmHg (30.0-50.0); VENOUS PH 7.328 UNITS (7.330-7.430); VENOUS STANDARD HCO3 19.7 MMOL/L; VENOUS TOTAL CO2 21.4 MMOL/L (24.0-28.0)
[2024-10-16 00:52] LABS: ESTIMATED AVERAGE GLUCOSE 237.0 MG/DL (60-110)
[2024-10-16] MEDS ORDERED: INSULIN REGULAR IN 0.9 % NACL 100 UNIT in IV 1 EA IV SCH (01:00)
[2024-10-16 01:17] LABS: CALCIUM LEVEL 8.1 MG/DL (8.5-10.1); CARBON DIOXIDE LEVEL 19 MMOL/L (20-31); CHLORIDE LEVEL 107 MMOL/L (98-107); CREATININE FOR GFR 0.61 MG/DL (0.55-1.30); GLOMERULAR FILTRATION RATE > 90.0 (>58); MAGNESIUM LEVEL 1.6 MG/DL (1.8-2.4); PHOSPHORUS LEVEL 3.2 MG/DL (2.5-4.9); POTASSIUM SERUM 4.1 MMOL/L (3.5-5.1); SODIUM LEVEL 141 MMOL/L (136-145)
[2024-10-16 01:23] LABS: OSMOLALITY SERUM 337 MOSM/KG (275-295)
[2024-10-16] MEDS: INSULIN IV RATE CHANGE DOCUMENTATION ML/HR XX SCH (01:29)
[2024-10-16] MEDS: MAG SULF 1GM/100ML (MAG RUN) 1 GM in IV 1 EA IV SCH (01:55)
[2024-10-16 01:56] LABS: VENOUS BASE EXCESS -7.3 (-2.0-2.0); VENOUS HCO3 17.0 MMOL/L (23.0-27.0); VENOUS O2 SATURATION 98.6 % (60.0-80.0); VENOUS PARTIAL PRESSURE CO2 31.0 mmHg (38.0-50.0); VENOUS PARTIAL PRESSURE O2 153.8 mmHg (30.0-50.0); VENOUS PH 7.357 UNITS (7.330-7.430); VENOUS STANDARD HCO3 18.6 MMOL/L; VENOUS TOTAL CO2 18.0 MMOL/L (24.0-28.0)
[2024-10-16 02:30] LABS: CALCIUM LEVEL 7.8 MG/DL (8.5-10.1); CARBON DIOXIDE LEVEL 18 MMOL/L (20-31); CHLORIDE LEVEL 111 MMOL/L (98-107); CREATININE FOR GFR 0.53 MG/DL (0.55-1.30); GLOMERULAR FILTRATION RATE > 90.0 (>58); PHOSPHORUS LEVEL 2.6 MG/DL (2.5-4.9); POTASSIUM SERUM 3.7 MMOL/L (3.5-5.1); SODIUM LEVEL 143 MMOL/L (136-145)
[2024-10-16] MEDS: PERCOCET 5MG/325MG TAB PO ONE (02:57)
[2024-10-16] MEDS: KCL 20MEQ IN D5/0.45NS 1000ML 1,000 ML IV SCH (02:57)
[2024-10-16 04:45] LABS: CALCIUM LEVEL 8.2 MG/DL (8.5-10.1); CARBON DIOXIDE LEVEL 21 MMOL/L (20-31); CHLORIDE LEVEL 111 MMOL/L (98-107); CREATININE FOR GFR 0.44 MG/DL (0.55-1.30); GLOMERULAR FILTRATION RATE > 90.0 (>58); POTASSIUM SERUM 4.0 MMOL/L (3.5-5.1); SODIUM LEVEL 141 MMOL/L (136-145)
[2024-10-16] MEDS: INSULIN GLARGINE-YFGN 1 UNITS/0.01 ML SC SCH (05:04)
[2024-10-16 06:25] LABS: PLATELET COUNT, AUTOMATED 377 10^3/uL (150-450)
[2024-10-16 06:52] LABS: ACETONE/KETONE 0.17 MMOL/L (0.02-0.27)
[2024-10-16 06:57] LABS: ACETONE/KETONE 0.18 MMOL/L (0.02-0.27)
[2024-10-16 06:59] LABS: CALCIUM LEVEL 7.9 MG/DL (8.5-10.1); CARBON DIOXIDE LEVEL 20 MMOL/L (20-31); CHLORIDE LEVEL 109 MMOL/L (98-107); CREATININE FOR GFR 0.47 MG/DL (0.55-1.30); GLOMERULAR FILTRATION RATE > 90.0 (>58); MAGNESIUM LEVEL 2.1 MG/DL (1.8-2.4); PHOSPHORUS LEVEL 3.3 MG/DL (2.5-4.9); POTASSIUM SERUM 4.0 MMOL/L (3.5-5.1); SODIUM LEVEL 139 MMOL/L (136-145)
[2024-10-16] MEDS: FOLIC ACID 1 MG TAB PO SCH (08:30)
[2024-10-16] MEDS: MULTIVITAMINS/MINERALS THERAP 1 TAB PO SCH (08:31)
[2024-10-16] MEDS: PANTOPRAZOLE 40MG VIAL IV SCH (08:31)
[2024-10-16] MEDS: THIAMINE 100 MG TAB PO SCH (08:31)
[2024-10-16] MEDS ORDERED: LIDO1PAD TOP (08:47)
[2024-10-16] MEDS ORDERED: METF500T13 PO (08:47)
[2024-10-16] MEDS ORDERED: NALO4SPR20 NARES (08:47)
[2024-10-16] MEDS ORDERED: BUPR-69 PO (08:47)
[2024-10-16] MEDS ORDERED: ALBU8.5H INH (08:47)
[2024-10-16] MEDS ORDERED: ARIP20TA51 PO (08:47)
[2024-10-16] MEDS ORDERED: OXYC1TAB23 PO (08:47)
[2024-10-16] MEDS ORDERED: TRAZ1TAB14 PO (08:47)
[2024-10-16] MEDS ORDERED: OLAN2.5T53 PO (08:47)
[2024-10-16] MEDS ORDERED: HOME MED LIST COMPLETE! XX SCH (08:50)
[2024-10-16] MEDS ORDERED: DEXTROAMPHETAMINE PO (09:09)
[2024-10-16] MEDS ORDERED: AMPHETAMINE PO (09:09)
[2024-10-16] MEDS ORDERED: GLUCOSE 4 GM CHEW PO PRN (09:15)
[2024-10-16] MEDS ORDERED: GLUCAGON INJ 1 MG VIAL SC PRN (09:15)
[2024-10-16] MEDS ORDERED: DEXTROSE 50% 50 ML SYRINGE IV PRN (09:15)
[2024-10-16 09:43] LABS: CHOLESTEROL LEVEL 155 MG/DL (<200); CHOLESTEROL RISK RATIO 4.72 (<5); LDL CHOLESTEROL 98.2 MG/DL (<100); NON-HDL-C 122.2 MG/DL; TRIGLYCERIDES LEVEL 120 MG/DL (<150)
[2024-10-16] MEDS ORDERED: guaiFENesin ER TABLET 600 MG TAB PO PRN (12:00)
[2024-10-16] MEDS ORDERED: DICYCLOMINE 10 MG CAP PO PRN (12:00)
[2024-10-16] MEDS ORDERED: ALBUTEROL 90 MCG/ACT 8 GM HFA INHALER INH PRN (12:00)
[2024-10-16] MEDS: HEPARIN SOD 5000 UNITS/ML 1 ML VIAL/SYRINGE SC SCH (12:01)
[2024-10-16] MEDS: INSULIN LISPRO (NovoLOG) PER UNIT SC SCH ×2 (12:33→20:26)
[2024-10-16] MEDS: clonazePAM 1 MG TAB PO PRN (12:33)
[2024-10-16] MEDS: ONDANSETRON 4MG 2ML VIAL IV PRN (12:34)
[2024-10-16] MEDS: ACETAMINOPHEN 325 MG TAB PO PRN (12:35)
[2024-10-16] MEDS: hydroCHLOROthiazide 25 MG TAB PO SCH (12:35)
[2024-10-16] MEDS: LIDOCAINE 5% PATCH TOP SCH (14:14)
[2024-10-16] MEDS: PERCOCET 5MG/325MG TAB PO PRN (15:38)
[2024-10-16] MEDS ORDERED: AMPH1TAB2 PO (15:52)
[2024-10-16] MEDS: MUPIROCIN 2% OINT 22 GM TUBE TOP SCH (20:22)
[2024-10-16] MEDS: traZODone 100 MG TAB PO SCH (20:24)
[2024-10-16] MEDS: PRAZOSIN 1 MG CAP PO SCH (20:57)
[2024-10-16] MEDS: INSULIN GLARGINE-YFGN 1 UNITS/0.01 ML SC ONE (22:16)
[2024-10-17] VITALS (7 sets, daily range): BP systolic 127–155; BP diastolic 75–104; TEMP 97.2–97.7; O2SAT 94–97
[2024-10-17 07:39] LABS: BASO # 0.1 10^3/uL (0.0-0.2); BASO % 0.9 % (0.0-1.0); EOS # 0.4 10^3/uL (0.0-0.5); EOS % 4.7 % (0.0-3.0); LYMPH # 3.3 10^3/uL (1.5-5.0); LYMPH % 38.2 % (24.0-44.0); MONO # 0.8 10^3/uL (0.0-0.8); MONO % 8.6 % (2.0-8.0); NEUTROPHILS # 4.1 10^3/uL (1.5-8.5); NEUTROPHILS % 47.4 % (36.0-66.0); PLATELET COUNT, AUTOMATED 394 10^3/uL (150-450)
[2024-10-17 08:12] LABS: CALCIUM LEVEL 8.2 MG/DL (8.5-10.1); CARBON DIOXIDE LEVEL 23 MMOL/L (20-31); CHLORIDE LEVEL 105 MMOL/L (98-107); CHOLESTEROL LEVEL 167 MG/DL (<200); CHOLESTEROL RISK RATIO 4.60 (<5); CREATININE FOR GFR 0.58 MG/DL (0.55-1.30); GLOMERULAR FILTRATION RATE > 90.0 (>58); LDL CHOLESTEROL 83.3 MG/DL (<100); MAGNESIUM LEVEL 1.6 MG/DL (1.8-2.4); NON-HDL-C 130.7 MG/DL; POTASSIUM SERUM 3.8 MMOL/L (3.5-5.1); SODIUM LEVEL 137 MMOL/L (136-145); TRIGLYCERIDES LEVEL 237 MG/DL (<150)
[2024-10-17] MEDS: INSULIN LISPRO (NovoLOG) PER UNIT SC SCH ×4 (08:27→20:36)
[2024-10-17] MEDS: METOCLOPRAMIDE 5 MG TAB PO ONE (08:36)
[2024-10-17] MEDS: INSULIN GLARGINE-YFGN 1 UNITS/0.01 ML SC SCH (09:44)
[2024-10-17] MEDS: MAGNESIUM OXIDE 400 MG TAB PO ONE (09:58)
[2024-10-17] MEDS: MAG SULF 1GM/100ML (MAG RUN) 1 GM in IV 1 EA IV SCH (09:58)
[2024-10-17 10:23] LABS: APPEARANCE, URINE HAZY (CLEAR); BACTERIA, URINE AUTO 1+ (NEGATIVE); BILIRUBIN, URINE AUTO NEGATIVE (NEGATIVE); BLOOD, URINE BLOOD NEGATIVE (NEGATIVE); GLUCOSE, URINE (UA) AUTO 3+ mg/dL (NEGATIVE); KETONE, URINE AUTO NEGATIVE (NEGATIVE); LEUKOCYTE ESTERASE, URINE AUTO NEGATIVE (NEGATIVE); MUCUS, URINE SMALL (NEGATIVE); NITRITE, URINE AUTO POSITIVE (NEGATIVE); PROTEIN, URINE AUTO NEGATIVE (NEGATIVE); RBC, URINE AUTO 1 /HPF (0-3); SPECIFIC GRAVITY URINE AUTO 1.024 (1.002-1.035); SQUAMOUS EPITHELIAL CELL UR AU 4 /HPF (0-6); UROBILINOGEN, URINE AUTO 0.2 mg/dL (0.0-2.0); WBC, URINE AUTO 3 /HPF (0-3)
[2024-10-18] VITALS (7 sets, daily range): BP systolic 112–124; BP diastolic 65–86; TEMP 97–97.7; O2SAT 94–98
[2024-10-18 08:11] LABS: BASO # 0.1 10^3/uL (0.0-0.2); BASO % 1.2 % (0.0-1.0); EOS # 0.4 10^3/uL (0.0-0.5); EOS % 4.1 % (0.0-3.0); LYMPH # 3.5 10^3/uL (1.5-5.0); LYMPH % 37.2 % (24.0-44.0); MONO # 0.7 10^3/uL (0.0-0.8); MONO % 7.8 % (2.0-8.0); NEUTROPHILS # 4.7 10^3/uL (1.5-8.5); NEUTROPHILS % 49.4 % (36.0-66.0); PLATELET COUNT, AUTOMATED 411 10^3/uL (150-450)
[2024-10-18] MEDS: INSULIN GLARGINE-YFGN 1 UNITS/0.01 ML SC SCH (08:12)
[2024-10-18 08:48] LABS: CALCIUM LEVEL 8.8 MG/DL (8.5-10.1); CARBON DIOXIDE LEVEL 26 MMOL/L (20-31); CHLORIDE LEVEL 106 MMOL/L (98-107); CREATININE FOR GFR 0.75 MG/DL (0.55-1.30); GLOMERULAR FILTRATION RATE > 90.0 (>58); MAGNESIUM LEVEL 1.9 MG/DL (1.8-2.4); POTASSIUM SERUM 4.4 MMOL/L (3.5-5.1); SODIUM LEVEL 138 MMOL/L (136-145)
[2024-10-18 09:24] LABS: VITAMIN B12 LEVEL 412 PG/ML (211-911)
[2024-10-18] MEDS: INSULIN GLARGINE-YFGN 1 UNITS/0.01 ML SC ONE (11:40)
[2024-10-18] MEDS: INSULIN LISPRO (NovoLOG) PER UNIT SC SCH (12:29)
[2024-10-18] MEDS: PERCOCET 5MG/325MG TAB PO PRN (12:59)
[2024-10-19 05:33] VITALS: BP 109/68; TEMP 97.5; O2SAT 94
[2024-10-19 07:16] LABS: BASO # 0.1 10^3/uL (0.0-0.2); BASO % 1.1 % (0.0-1.0); EOS # 0.4 10^3/uL (0.0-0.5); EOS % 3.7 % (0.0-3.0); LYMPH # 3.6 10^3/uL (1.5-5.0); LYMPH % 37.1 % (24.0-44.0); MONO # 0.7 10^3/uL (0.0-0.8); MONO % 7.2 % (2.0-8.0); NEUTROPHILS # 4.9 10^3/uL (1.5-8.5); NEUTROPHILS % 50.4 % (36.0-66.0); PLATELET COUNT, AUTOMATED 408 10^3/uL (150-450)
[2024-10-19 07:41] LABS: CALCIUM LEVEL 8.6 MG/DL (8.5-10.1); CARBON DIOXIDE LEVEL 24 MMOL/L (20-31); CHLORIDE LEVEL 105 MMOL/L (98-107); CREATININE FOR GFR 0.72 MG/DL (0.55-1.30); GLOMERULAR FILTRATION RATE > 90.0 (>58); MAGNESIUM LEVEL 1.6 MG/DL (1.8-2.4); POTASSIUM SERUM 4.4 MMOL/L (3.5-5.1); SODIUM LEVEL 138 MMOL/L (136-145)
[2024-10-19] MEDS: INSULIN GLARGINE-YFGN 1 UNITS/0.01 ML SC SCH (10:57)
[2024-10-19] MEDS ORDERED: PEN-308 SC (11:45)
[2024-10-19] MEDS ORDERED: BLOOKIT21 XX (11:45)
[2024-10-19] MEDS ORDERED: LANC30MI XX (11:45)
[2024-10-19] MEDS ORDERED: HUMA100I5 SC (11:45)
[2024-10-19] MEDS ORDERED: ALCOPAD25 TOP (11:45)
[2024-10-19] MEDS ORDERED: LANTINJ4 SC (11:45)
[2024-10-19] MEDS ORDERED: GLUC1TES2 XX (11:45)
== END 2024-10-19 13:21 | disposition home or self-care (01) | DRG 423 ==
LOC: M ED 19:25 → M ED INP 10-16 00:24 → M ICU 10-16 00:55 → M MS5PR 10-16 14:42
PROVIDERS: ADMIT Student in an Organized Health Care Education/Training Program; ATTEND Internal Medicine
DX: E88.89 Other specified metabolic disorders (principal); E87.29 Other acidosis; E11.65 Type 2 diabetes mellitus with hyperglycemia; E83.42 Hypomagnesemia; F10.129 Alcohol abuse with intoxication, unspecified; I10 Essential (primary) hypertension; F31.9 Bipolar disorder, unspecified; E63.8 Other specified nutritional deficiencies; F90.9 Attention-deficit hyperactivity disorder, unspecified type; F41.9 Anxiety disorder, unspecified; H02.60 Xanthelasma of unspecified eye, unspecified eyelid; M51.360 Other intervertebral disc degeneration, lumbar region with discogenic back pain only; F12.10 Cannabis abuse, uncomplicated; G43.909 Migraine, unspecified, not intractable, without status migrainosus; G89.29 Other chronic pain; Z79.899 Other long term (current) drug therapy; Z88.1 Allergy status to other antibiotic agents; Z88.8 Allergy status to other drugs, medicaments and biological substances; Z79.84 Long term (current) use of oral hypoglycemic drugs

== ENCOUNTER → 2024-12-17 | Outpatient (REF) | payer OTHER, MEDICAID ==
[~2024-12-17] MED LIST changes: +ALBU8.5H INH; +ALCOPAD25 TOP; +AMPH1TAB2 PO; +AMPHETAMINE PO; +ARIP20TA51 PO; +BLOOKIT21 XX; +BUPR-69 PO; +DEXTROAMPHETAMINE PO; +GLUC1TES2 XX; +HUMA100I5 SC; +LANC30MI XX; +LANTINJ4 SC; +LIDO1PAD TOP; +METF500T13 PO; +NALO4SPR20 NARES; +OLAN2.5T53 PO; +OXYC1TAB23 PO; +PEN-308 SC; +TRAZ1TAB14 PO
[2024-12-17 13:16] LABS: ALT/SGPT 51 U/L (7.0-40); AST/SGOT 41 U/L (<34); CALCIUM LEVEL 8.4 MG/DL (8.5-10.1); CARBON DIOXIDE LEVEL 20 MMOL/L (20-31); CHLORIDE LEVEL 105 MMOL/L (98-107); CHOLESTEROL LEVEL 184 MG/DL (<200); CHOLESTEROL RISK RATIO 3.14 (<5); CREATININE FOR GFR 0.65 MG/DL (0.55-1.30); GLOMERULAR FILTRATION RATE > 90.0 (>58); LDL CHOLESTEROL 102.7 MG/DL (<100); MAGNESIUM LEVEL 1.6 MG/DL (1.8-2.4); NON-HDL-C 125.5 MG/DL; POTASSIUM SERUM 4.5 MMOL/L (3.5-5.1); SODIUM LEVEL 137 MMOL/L (136-145); TRIGLYCERIDES LEVEL 114 MG/DL (<150)
[2024-12-17 14:06] LABS: ESTIMATED AVERAGE GLUCOSE 203.0 MG/DL (60-110)
== END ==
LOC: M LAB REF 12:21
PROVIDERS: ATTEND Family Medicine Addiction Medicine
DX: E11.9 Type 2 diabetes mellitus without complications (principal); E83.42 Hypomagnesemia